=== PATIENT | male | born 1930 | race Caucasian/White ===

== ENCOUNTER 2016-11-22 19:33 | Inpatient (IN) ==
--- OUTSIDE RECORDS SUMMARY | 2016-11-22 20:59 | External Medical Summary ---
:1930 Author Organization eClinicalWorks Care Team Providers Name Role Phone Spenser Gomez Provider Role Unavailable Allergies No Known Allergies Problems Problem Type Condition Code Onset Dates Condition Status Problem CHF, Combined Systolic & 428.41 Active Diastolic Heart F, Acute Problem Acute myocardial infarction, 410.92 Active unspecified site, subsequent episode of care Problem Hypertension 401.9 Active Assessment Presence of coronary angioplasty Z95.5 Active implant and graft Problem NSTEMI (non-ST elevated myocardial I21.4 Active infarction) Problem Chronic obstructive pulmonary J44.9 Active disease, unspecified Problem Other retirement (current) drug Z79.899 Active therapy Problem Essential (primary) hypertension I10 Active 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
--- OUTSIDE RECORDS SUMMARY | 2016-11-22 20:59 | External Medical Summary | Summary of Care ---
:1930 Author Name Kay Maria M.D. Address [address], [place] [id number] Care Team Providers Name Role Phone Kay Maria M.D. 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 Refills: 0 Maynor Maria M.D. Started ActiveSpiriva HandiHaler 18 MCG Inhalation Capsule INHALE CONTENTS OF 1 CAPSULE ONCE DAILY. Refills: 0 Started ActiveTerazosin HCl - 10 MG Oral Capsule TAKE 1 CAPSULE DAILY. Refills: 0 Started ActiveBenicar 40 MG Oral Tablet TAKE 1 TABLET DAILY. Refills: 0 Started ActiveHydrochlorothiazide 25 MG Oral Tablet Take 1 tablet daily Quantity: 90 Refills: 3 Started ActiveAllopurinol 300 MG Oral Tablet TAKE 1 TABLET DAILY DIRECTED. Quantity: 30 Refills: 6 Started ActiveVisiVites Oral Tablet TAKE 1 TABLET DAILY. Refills: 0 Started ActiveGlucosamine Chondr 1500 Complx Oral Capsule TAKE 1 CAPSULE DAILY. Refills: 0 Started ActiveFish Oil 1000 MG Oral Capsule TAKE 1 CAPSULE DAILY. Quantity: 30 Refills: 0 Started ActivePriLOSEC 10 MG Oral Packet Refills: 0 Started ActiveVitamin E 100 UNIT Oral Capsule Refills: 0 Started ActiveMagnesium 200 MG Oral Tablet one po qd Quantity: 30 Refills: 0 Started ActiveTylenol Extra Strength 500 MG Oral Tablet TAKE 1 TABLET EVERY 4 TO 6 HOURS NEEDED. Refills: 0 Started Active Allergies and Adverse Reactions Name Dates Details Penicillins Status: Active Procedures Procedure Dates Details History of Appendectomy History of Back Surgery History of Shoulder Surgery History of Prostate Surgery History of Ear Surgery Procedures not documented Immunization Name Dates Details Immunizations not documented Family History Father Name Dates Details Family history of myocardial infarction (V17.3, Z82.49) Status: Active Social History Name Dates Details Smoking StatusNever smoker Vital Signs Date Test Result Details No Known Vitals to report Results Date Description Value Details Results not documented Plan of Care Planned Observations Name Dates Details Planned Goals not documented Goal Planned Encounters Appointment; Provider: Maynor Maria On 09-Jun-2014 11:15 Appointment; Provider: Maynor Maria On 05-Jun-2014 15:30 Instructions Instructions not documented Encounters Appointment; Maynor Maria On 27-May-2014 Encounter Diagnosis: Problem not documented 13:30 Appointment; Maynor Maria On 21-May-2014 Encounter Diagnosis: Problem not documented 10:30 Appointment; Maynor Maria On 25-Dec-2013 Encounter Diagnosis: Problem not documented 10:45 Appointment; Maynor Maria On 23-Oct-2013 Encounter Diagnosis: Problem not documented 13:00 Appointment; Maynor Maria On Encounter Diagnosis: Problem not documented 13:15 Appointment; Maynor Maria On 10-Jul-2013 Encounter Diagnosis: Problem not documented 15:30
[2016-11-22] MEDS ORDERED: ACETAMINOPHEN 325 MG TABLET PO PRN (21:00)
[2016-11-22] MEDS ORDERED: ONDANSETRON 4 MG/2 ML INJECTION IVP PRN (21:00)
--- OUTSIDE RECORDS SUMMARY | 2016-11-22 21:00 | External Medical Summary | CCD ---
:1930 Author Name ARLENE FOWLER Address [address] [place] [address] Unavailable [place], [place] [id number] Care Team Providers Name Role Phone AMY JACKSON Attending Physician Unavailable LILIA CABALLERO (Secondary) Physician Unavailable Vital Signs Unknown or Not Available. Allergies Allergy Code Allergy Type Reaction Status PCN (penicillin) 0 Drug allergy Active Procedures Unknown or Not Available. History of Immunizations Immunization Code Date influenza, split (incl. purified 15 12/12/2001 surface antigen) influenza, split (incl. purified 15 12/11/2002 surface antigen) influenza, split (incl. purified 15 12/22/2004 surface antigen) influenza, split (incl. purified 15 12/27/2006 surface antigen) influenza, split (incl. purified 15 12/19/2007 surface antigen) influenza, split (incl. purified 15 01/14/2009 surface antigen) influenza, split (incl. purified 15 11/25/2009 surface antigen) influenza, split (incl. purified 15 01/19/2011 surface antigen) influenza, split (incl. purified 15 11/23/2011 surface antigen) pneumococcal polysaccharide PPV23 33 12/11/2002 pneumococcal polysaccharide PPV23 33 12/13/2009 Influenza, high dose seasonal 135 12/26/2012 Influenza, seasonal, injectable 141 12/13/2013 Problems Unknown or Not Available. Results FERRITIN - Collect Date/Time: 09/10/2015 14:00 Test Name Code Test Result Test Units Test Ref Range FERRITIN 164 ng/mL L=8 H=388 IRON AND TIBC - Collect Date/Time: 09/10/2015 14:00 Test Name Code Test Result Test Units Test Ref Range IRON 66 ug/dL L=50 H=175 TIBC 202 ug/dL L=250 H=450 IRON SAT 33 % L=20 H=50 RETICULOCYTE COUNT - Collect Date/Time: 09/10/2015 14:00 Test Name Code Test Result Test Units Test Ref Range Reticulocyte Count 40819-0 2.1 % 0.2-2.0 Active Medications Medication Code Dose Units Frequency Route Modification Start Date/Time Acetaminophen 036961 1270 MILLIGRAMS NEEDED ORAL 07/18/2014 500MG Oral 14:01 Tablet Prescription Detail 1000 MILLIGRAMS ORAL NEEDED Advair Diskus 250/50 587893 1 EACH TWICE A INHALATION 07/18/2014 0.25MG-0.05MG/1INH DAY 14:01 Inhalation Disk Prescription Detail 1 EACH INHALATION TWICE A DAY Allopurinol 769171 150 MILLIGRAMS DAILY ORAL 07/18/2014 300MG Oral 14:01 Tablet Prescription Detail 150 MILLIGRAMS ORAL DAILY Amiodarone 226582 200 MILLIGRAMS DAILY ORAL 07/18/2014 200MG Oral 14:01 Tablet Prescription Detail 200 MILLIGRAMS ORAL DAILY Aspirin 81MG 996323 81 MILLIGRAMS DAILY ORAL 07/18/2014 Oral Tablet, 14:01 Enteric Coated Prescription Detail 81 MILLIGRAMS ORAL DAILY Clopidogrel 75MG 327486 75 MILLIGRAMS DAILY ORAL 07/18/2014 Oral Tablet 14:01 Prescription Detail 75 MILLIGRAMS ORAL DAILY Glucosamine 0979202 500 MILLIGRAMS DAILY ORAL 07/18/2014 500MG Oral 14:01 Capsule Prescription Detail 500 MILLIGRAMS ORAL DAILY Metoprolol 265081 25 MILLIGRAMS TWICE A ORAL 07/18/2014 Succinate 25MG DAY 14:01 Oral Tablet, Extended Release Prescription Detail 25 MILLIGRAMS ORAL TWICE A DAY Ocuvite PreserVision [id number] 1 EACH DAILY ORAL 07/18/2014 [id number] 14:01 Oral Tablet Prescription Detail 1 EACH ORAL DAILY Polysporin 986481 1 EACH NEEDED TOPICAL 07/18/2014 500U/GM-88514G/GM APPLICATION 14:01 Topical application Ointment Prescription Detail 1 EACH TOPICAL APPLICATION NEEDED Spiriva 18MCG 271003 18 MCG DAILY INHALATION 07/18/2014 Inhalation 14:01 Capsule Prescription Detail 18 MCG INHALATION DAILY Medications Administered During Visit Unknown or Not Available. Encounters Encounter Diagnosis Diagnosis Code Start Date Anemia, unspecified D649 09/10/2015 Social History Smoking Status Code Start Date End Date Former smoker 1331348 Patient Decision Aids Unknown or Not Available. Discharge Instructions You were admitted to [facility] on 09/10/2015 13:47 with a principal diagnosis of Anemia, unspecified You had the following tests done: FERRITIN IRON AND TIBC RETICULOCYTE COUNT You were discharged from [facility] on 09/10/2015 13:47 Should you have any questions prior to discharge, please contact a member of your healthcare team. If you have left the hospital and have any questions, please contact your primary care physician. Chief Complaint and Reason For Visit Chief Complaint Date of Onset LAB Function Status Unknown or Not Available. Plan of Care Unknown or Not Available. Referral/Transition of Care Unknown or Not Available.
--- OUTSIDE RECORDS SUMMARY | 2016-11-22 21:00 | External Medical Summary | Summary of Care ---
:1930 Author Name Kay Maria M.D. Address [address], [place] [id number] Care Team Providers Name Role Phone Kay [...] Dates Details Planned Goals not documented Goal Instructions Instructions not documented Encounters Appointment; Maynor [...]
--- OUTSIDE RECORDS SUMMARY | 2016-11-22 21:00 | External Medical Summary ---
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 Problem Acute myocardial infarction, 410.92 Active unspecified site, subsequent episode of care Assessment Essential (primary) hypertension I10 Active Problem CHF, Combined Systolic & 428.41 Active Diastolic Heart F, Acute Problem Atherosclerotic heart disease of I25.10 Active [place] coronary artery without angina pectoris Problem NSTEMI (non-ST elevated myocardial I21.4 Active infarction) Problem Other rope walker (current) drug Z79.899 Active therapy Problem Old myocardial infarction I25.2 Active Problem Essential (primary) hypertension I10 Active Problem Chronic obstructive pulmonary J44.9 Active disease, unspecified Problem Presence of coronary angioplasty Z95.5 Active implant and graft Medications Medication Code System Code Instructions Start End Date Status Dosage Date Amlodipine [facility] 375[address]-303 5 MG Orally Once 1 tablet Besylate 1-22 a day Results No Known Results Summary Purpose eClinicalWorks Submission
--- OUTSIDE RECORDS SUMMARY | 2016-11-22 21:00 | External Medical Summary | CCD ---
:1930 Author Name ARLENE FOWLER Address [address] [place] [address] Unavailable [place], [place] [id number] Care Team Providers Name Role Phone NATHANIEL GREEN Attending Physician Unavailable AMY JACKSON (Secondary) Physician Unavailable Vital Signs Unknown or [...] 12/13/2013 Problems Unknown or Not Available. Results COMP METABOLIC - Collect Date/Time: 12/11/2015 11:15 Test Name Code Test Result Test Units Test Ref Range GLUCOSE 107 mg/dL L=70 H=110 BUN 21 mg/dL L=7 H=18 CREATININE 1.35 mg/dL L=0.60 H=1.30 AGE 85 YEARS GFR 50.1 SODIUM 141 mmol/L L=136 H=145 POTASSIUM 4.2 mmol/L L=3.5 H=5.1 CHLORIDE 105 mmol/L L=98 H=107 CO2 25 mmol/L L=21 H=32 CALCIUM 9.6 mg/dL L=8.5 H=10.1 AST 11 U/L L=15 H=37 ALT 22 U/L L=12 H=78 ALKALINE PHOS 84 U/L L=46 H=116 TOTAL PROTEIN 6.1 g/dL L=6.4 H=8.2 ALBUMIN 3.4 g/dL L=3.4 H=5.0 TOTAL BILI 0.90 mg/dL L=0.00 H=1.00 DIRECT BILIRUBIN - Collect Date/Time: 12/11/2015 11:15 Test Name Code Test Result Test Units Test Ref Range DIRECT BILI 0.20 mg/dL L=0.00 H=0.30 LIPID PANEL - Collect Date/Time: 12/11/2015 11:15 Test Name Code Test Result Test Units Test Ref Range CHOLESTEROL 197 mg/dL L=0 H=200 TRIGLYCERIDES 48 mg/dL L=30 H=150 HDL 93 mg/dL L=40 H=60 LDL, CALC 94 mg/dL L=0 H=100 VLDL 10 mg/dL L=0 H=40 CHOL/HDL RISK 2.1 RATIO L=0.0 H=5.0 PT FASTING: ? N/A THYROXINE (T4) FREE - Collect Date/Time: 12/11/2015 11:15 Test Name Code Test Result Test Units Test Ref Range FT4 1.30 ng/dL L=0.76 H=1.46 TSH - Collect Date/Time: 12/11/2015 11:15 Test Name Code Test Result Test Units Test Ref Range TSH 4.00 uIU/mL L=0.36 H=3.74 CBC W/ DIFF - Collect Date/Time: 12/11/2015 11:15 Test Name Code Test Result Test Units Test Ref Range WBC 8.1 x10^3 L=4.8 H=10.8 RBC 3.29 x10^6 L=4.70 H=6.10 HEMOGLOBIN 11.7 g/dL L=14.0 H=18.0 HEMATOCRIT 33.6 % L=42.0 H=52.0 MCV 102 fL L=80 H=100 MCH 35.4 pg L=27.0 H=33.0 MCHC 34.6 g/dL L=33.0 H=37.0 RDW 15.0 % L=11.5 H=14.5 PLATELETS 202 x10^3 L=150 H=450 MPV 8.4 fL L=7.8 H=11.0 NEUTROPHILS 74.6 % L=40.0 H=80.0 LYMPHOCYTES 16.7 % L=20.0 H=45.0 MONOCYTES 6.9 % L=0.0 H=10.0 EOSINOPHILS 1.7 % L=0.0 H=5.0 BASOPHILS 0.1 % L=0.0 H=2.0 REFLEX MAN DIFF NO N/A TRIIODOTHYROXINE (T3) TOTAL - Collect Date/Time: 12/11/2015 11:15 Test Name Code Test Result Test Units Test Ref Range Triiodothyronine (T3) 3053-6 0.45 mmol/L 0.87-1.78 Active Medications Medication Code Dose Units Frequency Route Modification Start Date/Time Acetaminophen 994044 4748 MILLIGRAMS NEEDED ORAL 07/18/2014 500MG Oral 14:01 Tablet Prescription Detail 1000 MILLIGRAMS ORAL NEEDED Advair Diskus 250/50 800096 1 EACH TWICE A INHALATION 07/18/2014 0.25MG-0.05MG/1INH DAY 14:01 Inhalation Disk Prescription Detail 1 EACH INHALATION TWICE A DAY Allopurinol 627174 150 MILLIGRAMS DAILY ORAL 07/18/2014 300MG Oral 14:01 Tablet Prescription Detail 150 MILLIGRAMS ORAL DAILY Amiodarone 383426 200 MILLIGRAMS DAILY ORAL 07/18/2014 200MG Oral 14:01 Tablet Prescription Detail 200 MILLIGRAMS ORAL DAILY Aspirin 81MG 439457 81 MILLIGRAMS DAILY ORAL 07/18/2014 Oral Tablet, 14:01 Enteric Coated Prescription Detail 81 MILLIGRAMS ORAL DAILY Clopidogrel 75MG 298212 75 MILLIGRAMS DAILY ORAL 07/18/2014 Oral Tablet 14:01 Prescription Detail 75 MILLIGRAMS ORAL DAILY Glucosamine 5041069 500 MILLIGRAMS DAILY ORAL 07/18/2014 500MG Oral 14:01 Capsule Prescription Detail 500 MILLIGRAMS ORAL DAILY Metoprolol 658684 25 MILLIGRAMS TWICE A ORAL 07/18/2014 Succinate 25MG DAY 14:01 Oral Tablet, Extended Release Prescription Detail 25 MILLIGRAMS ORAL TWICE A DAY Ocuvite PreserVision [id number] 1 EACH DAILY ORAL 07/18/2014 113MG-[id number] 14:01 Oral Tablet Prescription Detail 1 EACH ORAL DAILY Polysporin 326360 1 EACH NEEDED TOPICAL 07/18/2014 500U/GM-89987O/GM APPLICATION 14:01 Topical application Ointment Prescription Detail 1 EACH TOPICAL APPLICATION NEEDED Spiriva 18MCG 915616 18 MCG DAILY INHALATION 07/18/2014 Inhalation 14:01 Capsule Prescription Detail 18 MCG INHALATION DAILY Medications Administered During Visit Unknown or Not Available. Encounters Encounter Diagnosis Diagnosis Code Start Date Anemia, unspecified D649 12/11/2015 Social History Smoking Status Code Start Date End Date Former smoker [id number] Patient Decision Aids Unknown or Not Available. Discharge Instructions You were admitted to [facility] on 12/11/2015 11:05 with a principal diagnosis of Anemia, unspecified You had the following tests done: CBC W/ DIFF COMP METABOLIC DIRECT BILIRUBIN LIPID PANEL THYROXINE (T4) FREE TRIIODOTHYROXINE (T3) TOTAL TSH You were discharged from [facility] on 12/11/2015 11:05 Should you have any questions prior to [...]
--- OUTSIDE RECORDS SUMMARY | 2016-11-22 21:00 | External Medical Summary | CCD ---
:1930 Author Name ARLENE FOWLER Address [address] [place] [address] Unavailable [place], [place] [phone] Care Team Providers Name Role Phone AMY JACKSON Attending Physician Unavailable Vital Signs Unknown or Not [...] 12/13/2013 Problems Unknown or Not Available. Results BASIC METABOLIC - Collect Date/Time: 05/29/2015 11:30 Test Name Code Test Result Test Units Test Ref Range GLUCOSE 106 mg/dL L=70 H=110 BUN 31 mg/dL L=7 H=18 CREATININE 1.72 mg/dL L=0.60 H=1.30 AGE 85 YEARS GFR 37.9 SODIUM 143 mmol/L L=136 H=145 POTASSIUM 4.1 mmol/L L=3.5 H=5.1 CHLORIDE 105 mmol/L L=98 H=107 CO2 31 mmol/L L=21 H=32 CALCIUM 9.6 mg/dL L=8.5 H=10.1 THYROXINE (T4) FREE - Collect Date/Time: 05/29/2015 11:30 Test Name Code Test Result Test Units Test Ref Range FT4 1.04 ng/dL L=0.76 H=1.46 TSH - Collect Date/Time: 05/29/2015 11:30 Test Name Code Test Result Test Units Test Ref Range TSH 4.17 uIU/mL L=0.36 H=3.74 CBC W/ DIFF - Collect Date/Time: 05/29/2015 11:30 Test Name Code Test Result Test Units Test Ref Range WBC 8.7 x10^3 L=4.8 H=10.8 RBC 3.74 x10^6 L=4.70 H=6.10 HEMOGLOBIN 12.6 g/dL L=14.0 H=18.0 HEMATOCRIT 37.8 % L=42.0 H=52.0 MCV 101 fL L=80 H=100 MCH 33.8 pg L=27.0 H=33.0 MCHC 33.4 g/dL L=33.0 H=37.0 RDW 14.4 % L=11.5 H=14.5 PLATELETS 172 x10^3 L=150 H=450 MPV 9.3 fL L=7.8 H=11.0 NEUTROPHILS 73.0 % L=40.0 H=80.0 LYMPHOCYTES 18.0 % L=20.0 H=45.0 MONOCYTES 6.1 % L=0.0 H=10.0 EOSINOPHILS 2.8 % L=0.0 H=5.0 BASOPHILS 0.1 % L=0.0 H=2.0 REFLEX MAN DIFF NO N/A Active Medications Medication Code Dose Units Frequency Route Modification Start Date/Time Acetaminophen 406686 5872 MILLIGRAMS NEEDED ORAL 07/18/2014 500MG Oral 14:01 Tablet Prescription Detail 1000 MILLIGRAMS ORAL NEEDED Advair Diskus 250/50 766162 1 EACH TWICE A INHALATION 07/18/2014 0.25MG-0.05MG/1INH DAY 14:01 Inhalation Disk Prescription Detail 1 EACH INHALATION TWICE A DAY Allopurinol 771311 150 MILLIGRAMS DAILY ORAL 07/18/2014 300MG Oral 14:01 Tablet Prescription Detail 150 MILLIGRAMS ORAL DAILY Amiodarone 761603 200 MILLIGRAMS DAILY ORAL 07/18/2014 200MG Oral 14:01 Tablet Prescription Detail 200 MILLIGRAMS ORAL DAILY Aspirin 81MG 793739 81 MILLIGRAMS DAILY ORAL 07/18/2014 Oral Tablet, 14:01 Enteric Coated Prescription Detail 81 MILLIGRAMS ORAL DAILY Clopidogrel 75MG 657121 75 MILLIGRAMS DAILY ORAL 07/18/2014 Oral Tablet 14:01 Prescription Detail 75 MILLIGRAMS ORAL DAILY Glucosamine 1129655 500 MILLIGRAMS DAILY ORAL 07/18/2014 500MG Oral 14:01 Capsule Prescription Detail 500 MILLIGRAMS ORAL DAILY Metoprolol 832412 25 MILLIGRAMS TWICE A ORAL 07/18/2014 Succinate 25MG DAY 14:01 Oral Tablet, Extended Release Prescription Detail 25 MILLIGRAMS ORAL TWICE A DAY Ocuvite PreserVision [id number] 1 EACH DAILY ORAL 07/18/2014 113MG-[id number] 14:01 Oral Tablet Prescription Detail 1 EACH ORAL DAILY Polysporin 430043 1 EACH NEEDED TOPICAL 07/18/2014 500U/GM-62229E/GM APPLICATION 14:01 Topical application Ointment Prescription Detail 1 EACH TOPICAL APPLICATION NEEDED Spiriva 18MCG 149224 18 MCG DAILY INHALATION 07/18/2014 Inhalation 14:01 Capsule Prescription Detail 18 MCG INHALATION DAILY Medications Administered During Visit Unknown or Not Available. Encounters Encounter Diagnosis Diagnosis Code Start Date Other fatigue R5383 05/29/2015 Social History Smoking Status Code Start Date End Date Former smoker [id number] Patient Decision Aids Unknown or Not Available. Discharge Instructions You were admitted to [facility] on 05/29/2015 11:14 with a principal diagnosis of Other fatigue You had the following tests done: BASIC METABOLIC CBC W/ DIFF THYROXINE (T4) FREE TSH You were discharged from [facility] on 05/29/2015 11:14 Should you have any questions prior to [...]
--- OUTSIDE RECORDS SUMMARY | 2016-11-22 21:00 | External Medical Summary | CCD ---
:1930 Author Name ARLENE FOWLER Address [address] [place] [address] Unavailable [place], [place] [id number] Care Team Providers Name Role Phone NATHANIEL [...] 12/13/2013 Problems Unknown or Not Available. Results TSH - Collect Date/Time: 04/21/2015 13:46 Test Name Code Test Result Test Units Test Ref Range TSH 3.22 uIU/mL L=0.36 H=3.74 Active Medications Medication Code Dose Units Frequency Route Modification Start Date/Time Acetaminophen 476553 8416 MILLIGRAMS NEEDED ORAL 07/18/2014 500MG Oral 14:01 Tablet Prescription Detail 1000 MILLIGRAMS ORAL NEEDED Advair Diskus 250/50 689928 1 EACH TWICE A INHALATION 07/18/2014 0.25MG-0.05MG/1INH DAY 14:01 Inhalation Disk Prescription Detail 1 EACH INHALATION TWICE A DAY Allopurinol 422857 150 MILLIGRAMS DAILY ORAL 07/18/2014 300MG Oral 14:01 Tablet Prescription Detail 150 MILLIGRAMS ORAL DAILY Amiodarone 773543 200 MILLIGRAMS DAILY ORAL 07/18/2014 200MG Oral 14:01 Tablet Prescription Detail 200 MILLIGRAMS ORAL DAILY Aspirin 81MG 539680 81 MILLIGRAMS DAILY ORAL 07/18/2014 Oral Tablet, 14:01 Enteric Coated Prescription Detail 81 MILLIGRAMS ORAL DAILY Clopidogrel 75MG 601362 75 MILLIGRAMS DAILY ORAL 07/18/2014 Oral Tablet 14:01 Prescription Detail 75 MILLIGRAMS ORAL DAILY Glucosamine 2128016 500 MILLIGRAMS DAILY ORAL 07/18/2014 500MG Oral 14:01 Capsule Prescription Detail 500 MILLIGRAMS ORAL DAILY Metoprolol 705696 25 MILLIGRAMS TWICE A ORAL 07/18/2014 Succinate 25MG DAY 14:01 Oral Tablet, Extended Release Prescription Detail 25 MILLIGRAMS ORAL TWICE A DAY Ocuvite PreserVision [id number] 1 EACH DAILY ORAL 07/18/2014 113MG-[id number] 14:01 Oral Tablet Prescription Detail 1 EACH ORAL DAILY Polysporin 602352 1 EACH NEEDED TOPICAL 07/18/2014 500U/[id number]/GM APPLICATION 14:01 Topical application Ointment Prescription Detail 1 EACH TOPICAL APPLICATION NEEDED Spiriva 18MCG 925766 18 MCG DAILY INHALATION 07/18/2014 Inhalation 14:01 Capsule Prescription Detail 18 MCG INHALATION DAILY Medications Administered During Visit Unknown or Not Available. 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 Discharge Instructions You were admitted to [facility] on 04/21/2015 13:36 with a principal diagnosis of Chronic combined systolic and diastolic hrt fail You had the following tests done: TSH You were discharged from [facility] on 04/21/2015 13:36 Should you have any questions prior to [...]
--- OUTSIDE RECORDS SUMMARY | 2016-11-22 21:00 | External Medical Summary | Summary of Care ---
:1930 Author Name Kay Maria M.D. Address [address], [place] [address] Care Team Providers Name Role Phone Kay Maria M.D. 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 Refills: 0 Started ActiveDoxycycline Hyclate 100 MG Oral Tablet 1 po bid for 10 days Quantity: 20 Refills: 0 Maynor Maria M.D. Started 09-Jun-2014 Active Allergies and Adverse Reactions Name Dates [...] Planned Encounters Appointment; Provider: Maynor Maria On 05-Jun-2014 15:30 Instructions Instructions not documented Encounters Appointment; Maynor Maria On Encounter Diagnosis: Problem not documented 13:45 Appointment; Maynor Maria On 23-Jun-2014 Encounter Diagnosis: Problem not documented 11:00 Appointment; Maynor Maria On 09-Jun-2014 Encounter Diagnosis: Problem not documented 11:15 Appointment; Maynor Maria On 27-May-2014 Encounter Diagnosis: [...]
--- OUTSIDE RECORDS SUMMARY | 2016-11-22 21:00 | External Medical Summary | CCD ---
:1930 Author Name ARLENE FOWLER Address [address] [place] [address] Unavailable [place], [place] [phone] Care Team Providers Name Role Phone AMY [...] 12/13/2013 Problems Unknown or Not Available. Results Unknown or Not Available. Active Medications Medication Code Dose Units Frequency Route Modification Start Date/Time Acetaminophen 502413 9737 MILLIGRAMS NEEDED ORAL 07/18/2014 500MG Oral 14:01 Tablet Prescription Detail 1000 MILLIGRAMS ORAL NEEDED Advair Diskus 250/50 082332 1 EACH TWICE A INHALATION 07/18/2014 0.25MG-0.05MG/1INH DAY 14:01 Inhalation Disk Prescription Detail 1 EACH INHALATION TWICE A DAY Allopurinol 372842 150 MILLIGRAMS DAILY ORAL 07/18/2014 300MG Oral 14:01 Tablet Prescription Detail 150 MILLIGRAMS ORAL DAILY Amiodarone 730186 200 MILLIGRAMS DAILY ORAL 07/18/2014 200MG Oral 14:01 Tablet Prescription Detail 200 MILLIGRAMS ORAL DAILY Aspirin 81MG 011556 81 MILLIGRAMS DAILY ORAL 07/18/2014 Oral Tablet, 14:01 Enteric Coated Prescription Detail 81 MILLIGRAMS ORAL DAILY Clopidogrel 75MG 841626 75 MILLIGRAMS DAILY ORAL 07/18/2014 Oral Tablet 14:01 Prescription Detail 75 MILLIGRAMS ORAL DAILY Glucosamine 6980761 500 MILLIGRAMS DAILY ORAL 07/18/2014 500MG Oral 14:01 Capsule Prescription Detail 500 MILLIGRAMS ORAL DAILY Metoprolol 161093 25 MILLIGRAMS TWICE A ORAL 07/18/2014 Succinate 25MG DAY 14:01 Oral Tablet, Extended Release Prescription Detail 25 MILLIGRAMS ORAL TWICE A DAY Ocuvite PreserVision [id number] 1 EACH DAILY ORAL 07/18/2014 113MG-0.8LL-[id number]-9 14:01 Oral Tablet Prescription Detail 1 EACH ORAL DAILY Polysporin 112638 1 EACH NEEDED TOPICAL 07/18/2014 500U/GM-70235B/GM APPLICATION 14:01 Topical application Ointment Prescription Detail 1 EACH TOPICAL APPLICATION NEEDED Spiriva 18MCG 699980 18 MCG DAILY INHALATION 07/18/2014 Inhalation 14:01 Capsule Prescription Detail 18 MCG INHALATION DAILY Medications Administered During Visit Unknown or Not Available. Encounters Encounter Diagnosis Diagnosis Code Start Date Abnormal findings on diagnostic R932 09/09/2015 imaging of liver and biliary tract Social History Smoking Status Code Start Date End Date Former smoker 8877822 Patient Decision Aids Unknown or Not Available. Discharge Instructions You were admitted to [facility] on 09/09/2015 09:45 with a principal diagnosis of Abnormal findings on dx imaging of liver and biliary tr You were discharged from [facility] on 09/09/2015 09:45 Should you have any questions prior to discharge, please contact a member of your healthcare team. If you have left the hospital and have any questions, please contact your primary care physician. Chief Complaint and Reason For Visit Chief Complaint Date of Onset CT ABD WWO CONTR Function Status Unknown or Not Available. Plan of Care Unknown or Not Available. Referral/Transition of Care Unknown or Not Available.
--- OUTSIDE RECORDS SUMMARY | 2016-11-22 21:00 | External Medical Summary | CCD ---
:1930 Author Name LETTY CERDA Address [address] [place] [phone] Care Team Providers Name Role Phone TRINH JACKSON Attending Physician CRISTIAN Quezada Registered Nurse Unavailable Vital Signs Unknown or Not Available. [...] Dose Units Frequency [facility]ification [facility] 20 MILLIEQUIVALENT DAILY BY 07/19/2014 20MEQ Oral MOUTH 09:17 Tablet, Extended Release Prescription Detail TAKE 20 MILLIEQUIVALENT BY MOUTH DAILY FOR ONE WEEK. ADDITIONAL TABLET TODAY Acetaminophen 659697 4987 MILLIGRAMS NEEDED ORAL 07/18/2014 500MG Oral Tablet 14:01 Prescription Detail 1000 MILLIGRAMS ORAL NEEDED Advair Diskus 250/50 464119 1 EACH TWICE A INHALATION 07/18/2014 0.25MG-0.05MG/1INH DAY 14:01 Inhalation Disk Prescription Detail 1 EACH INHALATION TWICE A DAY Allopurinol 150 MILLIGRAMS DAILY ORAL 07/18/2014 300MG Oral 14:01 Tablet Prescription Detail 150 MILLIGRAMS ORAL DAILY Amiodarone 952884 200 MILLIGRAMS DAILY ORAL 07/18/2014 200MG Oral 14:01 Tablet Prescription Detail 200 MILLIGRAMS ORAL DAILY Aspirin 81MG 204372 81 MILLIGRAMS DAILY ORAL 07/18/2014 Oral Tablet, 14:01 Enteric Coated Prescription Detail 81 MILLIGRAMS ORAL DAILY Benicar 5MG Oral 070055 07/18/2014 Tablet 14:01 Bumetanide 1MG 432983 07/18/2014 Oral Tablet 14:01 Clopidogrel 75MG 448076 75 MILLIGRAMS DAILY ORAL 07/18/2014 Oral Tablet 14:01 Prescription Detail 75 MILLIGRAMS ORAL DAILY Fish Oil 562907 6350 MILLIGRAMS ORAL 07/18/2014 1000MG Oral 14:01 Capsule, Liquid Filled Prescription Detail 1000 MILLIGRAMS ORAL Glucosamine 0626709 500 MILLIGRAMS DAILY ORAL 07/18/2014 500MG Oral 14:01 Capsule Prescription Detail 500 MILLIGRAMS ORAL DAILY Hydrochlorothiazide 438965 25 MILLIGRAMS DAILY ORAL 07/18/2014 25MG Oral Tablet 14:01 Prescription Detail 25 MILLIGRAMS ORAL DAILY Magnesium 0 500 MILLIGRAMS DAILY ORAL 07/18/2014 14:01 Prescription Detail 500 MILLIGRAMS ORAL DAILY Metoprolol 370563 25 MILLIGRAMS TWICE A ORAL 07/18/2014 Succinate 25MG DAY 14:01 Oral Tablet, Extended Release Prescription Detail 25 MILLIGRAMS ORAL TWICE A DAY Nexium 20MG 610964 20 MILLIGRAMS DAILY ORAL 07/18/2014 Oral Capsule, 14:01 Delayed Release Prescription Detail 20 MILLIGRAMS ORAL DAILY Ocuvite PreserVision 02339348172 1 EACH DAILY ORAL 07/18/2014 113MG-0.2AC-[id number]-4 14:01 Oral Tablet Prescription Detail 1 EACH ORAL DAILY Polysporin 475321 1 EACH NEEDED TOPICAL 07/18/2014 500U/GM-65363M/GM APPLICATION 14:01 Topical application Ointment Prescription Detail 1 EACH TOPICAL APPLICATION NEEDED Spiriva 18MCG 295262 18 MCG DAILY INHALATION 07/18/2014 Inhalation 14:01 Capsule Prescription Detail 18 MCG INHALATION DAILY Terazosin HCl 741092 07/18/2014 5MG Oral 14:01 Capsule Vitamin D 81143885375 2000 INTERNATIONAL DAILY ORAL 07/18/2014 2000IU Oral UNITS 14:01 Tablet Prescription Detail 2000 INTERNATIONAL UNITS ORAL DAILY Medications Administered During Visit Unknown or Not Available. Encounters Unknown or Not Available. Social History Smoking Status Code Start Date End Date Former smoker 1816712 Patient Decision Aids Unknown or Not Available. Discharge Instructions You were admitted to [facility] on 10/06/2014. Should you have any questions prior to discharge, please contact a member of your healthcare team. If you have left the hospital and have any questions, please contact your primary care physician. Chief Complaint and Reason For Visit Chief Complaint Date of Onset CARDIAC REHAB Function Status Unknown or Not Available. Referral/Transition of Care Unknown or Not Available.
--- OUTSIDE RECORDS SUMMARY | 2016-11-22 21:00 | External Medical Summary | CCD ---
:1930 Author Name LETTY CERDA Address [address] [place] [address] Unavailable [place], [place] [phone] Care Team Providers Name Role Phone TRINH JACKSON Attending Physician Unavailable TRINH JACKSON Er Physician 1 Unavailable Vital Signs Vital Sign Value Unit Date/Time Recent/Initial? Weight Measured 230 lbs 05/31/2014 09:56 Initial VS Height 69 in 05/31/2014 09:56 Initial VS BMI (Body Mass 33.96 kg/m^2 05/31/2014 09:56 Initial VS Index) BSA (Body Surface 2.25 m^2 05/31/2014 09:56 Initial VS Area) Allergies Allergy Code Allergy Type Reaction Status [...] surface antigen) pneumococcal polysaccharide PPV23 33 12/11/2002 Influenza, high dose seasonal 135 12/26/2012 Problems Unknown or Not Available. Results CARDIAC PANEL - Collect Date/Time: 05/31/2014 09:37 Test Name Code Test Result Test Units Test Ref Range CKMB 1.5 ng/mL L=0.0 H=3.6 CPK 76 U/L L=26 H=308 CKMB% 2.0 % L=0.0 H=4.0 TROPONIN I <0.02 ng/mL L=0.00 H=0.05 COMP METABOLIC - Collect Date/Time: 05/31/2014 09:37 Test Name Code Test Result Test Units Test Ref Range GLUCOSE 199 mg/dL L=70 H=110 BUN 18 mg/dL L=7 H=18 CREATININE 1.40 mg/dL L=0.60 H=1.30 AGE 84 YEARS GFR 51.2 SODIUM 139 mmol/L L=136 H=145 POTASSIUM 3.4 mmol/L L=3.5 H=5.1 CHLORIDE 102 mmol/L L=98 H=107 CO2 26 mmol/L L=21 H=32 CALCIUM 9.7 mg/dL L=8.5 H=10.1 AST 11 U/L L=15 H=37 ALT 25 U/L L=12 H=78 ALKALINE PHOS 69 U/L L=46 H=116 TOTAL PROTEIN 6.5 g/dL L=6.4 H=8.2 ALBUMIN 3.3 g/dL L=3.4 H=5.0 TOTAL BILI 0.90 mg/dL L=0.00 H=1.00 PRO B-TYPE NATRIURETIC PEPTIDE - Collect Date/Time: 05/31/2014 09:37 Test Name Code Test Result Test Units Test Ref Range PBNP 62 pg/mL L=0 H=450 CBC W/ DIFF - Collect Date/Time: 05/31/2014 09:37 Test Name Code Test Result Test Units Test Ref Range WBC 8.7 x10^3 L=4.8 H=10.8 RBC 3.49 x10^6 L=4.70 H=6.10 HEMOGLOBIN 12.6 g/dL L=14.0 H=18.0 HEMATOCRIT 36.4 % L=42.0 H=52.0 MCV 105 fL L=80 H=100 MCH 36.2 pg L=27.0 H=33.0 MCHC 34.7 g/dL L=33.0 H=37.0 RDW 14.2 % L=11.5 H=14.5 PLATELETS 142 x10^3 L=150 H=450 MPV 9.5 fL L=7.8 H=11.0 NEUTROPHILS 68.3 % L=40.0 H=80.0 LYMPHOCYTES 22.7 % L=20.0 H=45.0 MONOCYTES 7.1 % L=0.0 H=10.0 EOSINOPHILS 1.6 % L=0.0 H=5.0 BASOPHILS 0.3 % L=0.0 H=2.0 REFLEX MAN DIFF NO N/A Active Medications Unknown or Not Available. Medications Administered During Visit Unknown or Not Available. Encounters Unknown or Not Available. Social History Smoking Status Code Start Date End Date Former smoker [id number] Patient Decision Aids Unknown or Not Available. Discharge Instructions You were admitted to [facility] on 05/31/2014. You were discharged from [facility] on 05/31/2014. Should you have any questions prior to discharge, please contact a member of your healthcare team. If you have left the hospital and have any questions, please contact your primary care physician. Chief Complaint and Reason For Visit Chief Complaint Date of Onset CHEST PAIN Function Status Unknown or Not Available. Plan of Care Unknown or Not Available. Referral/Transition of Care Unknown or Not Available.
--- OUTSIDE RECORDS SUMMARY | 2016-11-22 21:00 | External Medical Summary | CCD ---
:1930 Author Name LETTY CERDA Address [address] [place] [address] Unavailable [place], [place] [phone] Care Team Providers Name Role Phone TRINH JACKSON Attending Physician Unavailable BHUPENDRA ORO Rounding (Secondary) Physician Unavailable Vital Signs Unknown or Not Available. Allergies Allergy Code Allergy Type Reaction Status PCN (penicillin) 0 Drug allergy Active Procedures Procedure Code Procedure Type Date CHEST [id number] 08/12/2014 History of Immunizations Immunization Code Date influenza, [...] Available. Results COMP METABOLIC - Collect Date/Time: 08/12/2014 10:45 Test Name Code Test Result Test Units Test Ref Range GLUCOSE 109 mg/dL L=70 H=110 BUN 24 mg/dL L=7 H=18 CREATININE 1.40 mg/dL L=0.60 H=1.30 AGE 84 YEARS GFR 51.2 SODIUM 140 mmol/L L=136 H=145 POTASSIUM 4.0 mmol/L L=3.5 H=5.1 CHLORIDE 105 mmol/L L=98 H=107 CO2 25 mmol/L L=21 H=32 CALCIUM 9.9 mg/dL L=8.5 H=10.1 AST 14 U/L L=15 H=37 ALT 25 U/L L=12 H=78 ALKALINE PHOS 86 U/L L=46 H=116 TOTAL PROTEIN 7.0 g/dL L=6.4 H=8.2 ALBUMIN 3.8 g/dL L=3.4 H=5.0 TOTAL BILI 0.90 mg/dL L=0.00 H=1.00 CBC (HEMOGRAM ONLY) - Collect Date/Time: 08/12/2014 10:45 Test Name Code Test Result Test Units Test Ref Range WBC 7.5 x10^3 L=4.8 H=10.8 RBC 3.21 x10^6 L=4.70 H=6.10 HEMOGLOBIN 11.5 g/dL L=14.0 H=18.0 HEMATOCRIT 33.5 % L=42.0 H=52.0 MCV 104 fL L=80 H=100 MCH 35.7 pg L=27.0 H=33.0 MCHC 34.2 g/dL L=33.0 H=37.0 RDW 15.0 % L=11.5 H=14.5 PLATELETS 168 x10^3 L=150 H=450 MPV 8.7 fL L=7.8 H=11.0 PT/INR - Collect Date/Time: 08/12/2014 10:45 Test Name Code Test Result Test Units Test Ref Range PT 9.4 Secs L=9.2 H=10.8 INR 0.94 L=0.00 H=4.00 PTT - Collect Date/Time: 08/12/2014 10:45 Test Name Code Test Result Test Units Test Ref Range PTT 23.4 Secs L=22.0 H=30.0 Active Medications Medication Code Dose Units Frequency Route Modification Start Date/Time Klor-Con M20 815178 20 MILLIEQUIVA DAILY BY MOUTH 07/19/2014 20MEQ Oral LENT 09:17 Tablet, Extended Release Acetaminophen 490844 2523 MILLIGRAMS NEEDED ORAL 07/18/2014 500MG Oral 14:01 Tablet Advair Diskus 541399 1 EACH TWICE A INHALATION 07/18/2014 250/50 DAY 14:01 0.25MG-0.05MG/1I NH Inhalation Disk Allopurinol 578681 150 MILLIGRAMS DAILY ORAL 07/18/2014 300MG Oral 14:01 Tablet Amiodarone 200MG 601898 200 MILLIGRAMS DAILY ORAL 07/18/2014 Oral Tablet 14:01 Aspirin 81MG 862961 81 MILLIGRAMS DAILY ORAL 07/18/2014 Oral Tablet, 14:01 Enteric Coated Benicar 5MG Oral 666647 07/18/2014 Tablet 14:01 Bumetanide 1MG 038973 07/18/2014 Oral Tablet 14:01 Clopidogrel 75MG 544809 75 MILLIGRAMS DAILY ORAL 07/18/2014 Oral Tablet 14:01 Fish Oil 1000MG 631262 0960 MILLIGRAMS ORAL 07/18/2014 Oral Capsule, 14:01 Liquid Filled Glucosamine 7783539 500 MILLIGRAMS DAILY ORAL 07/18/2014 500MG Oral 14:01 Capsule Hydrochlorothiaz 375019 25 MILLIGRAMS DAILY ORAL 07/18/2014 godwin 25MG Oral 14:01 Tablet Magnesium 0 500 MILLIGRAMS DAILY ORAL 07/18/2014 14:01 Metoprolol 845354 25 MILLIGRAMS TWICE A ORAL 07/18/2014 Succinate 25MG DAY 14:01 Oral Tablet, Extended Release Nexium 20MG Oral 747974 20 MILLIGRAMS DAILY ORAL 07/18/2014 Capsule, Delayed 14:01 Release Ocuvite 1918802957 1 EACH DAILY ORAL 07/18/2014 PreserVision 2 14:01 113MG-0.4MG-7160 IU-1 Oral Tablet Polysporin 643694 1 EACH NEEDED TOPICAL 07/18/2014 500U/GM-98428F/G APPLICATIO 14:01 M Topical N application Ointment Spiriva 18MCG 747365 18 MCG DAILY INHALATION 07/18/2014 Inhalation 14:01 Capsule Terazosin HCl 056438 07/18/2014 5MG Oral Capsule 14:01 Vitamin D 2000IU 2850090446 2000 INTERNATION DAILY ORAL 07/18/2014 Oral Tablet 0 AL UNITS 14:01 Medications Administered During Visit Unknown or Not Available. Encounters Encounter Diagnosis Diagnosis Code Start Date PRE OP EXAM UNSPECIFIED V7284 08/12/2014 Social History Smoking Status Code Start Date End Date Former smoker [id number] Patient Decision Aids Unknown or Not Available. Discharge Instructions You were admitted to [facility] on with a principal diagnosis of PRE OP EXAM UNSPECIFIED. You were discharged from [facility] on 08/12/2014. Should you have any questions prior to discharge, please contact a member of your healthcare team. If you have left the hospital and have any questions, please contact your primary care physician. Chief Complaint and Reason For Visit Chief Complaint Date of Onset LAB XR CHEST EKG PREOP Function Status Unknown or Not Available. Plan of Care Unknown or Not Available. Referral/Transition of Care Unknown or Not Available.
--- OUTSIDE RECORDS SUMMARY | 2016-11-22 21:00 | External Medical Summary ---
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
--- OUTSIDE RECORDS SUMMARY | 2016-11-22 21:00 | External Medical Summary ---
[...] Instructions Start End Date Status Dosage Date Amiodarone HCl [facility] [address] 200 MG Orally 1 tablet 3-06 Once a day Results No Known Results Summary Purpose eClinicalWorks Submission
--- OUTSIDE RECORDS SUMMARY | 2016-11-22 21:00 | External Medical Summary ---
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 [address] 200 MG Orally 1 tablet 3-06 Once a day Results No Known Results Summary Purpose eClinicalMailWriter Submission
--- OUTSIDE RECORDS SUMMARY | 2016-11-22 21:00 | External Medical Summary | CCD ---
:1930 Author Name ARLENE FOWLER Address [address] [place] [address] Unavailable [place], [place] [phone] Care Team Providers Name Role Phone AMY JACKSON Attending Physician Unavailable Vital Signs Unknown or Not Available. Allergies Allergy Code Allergy Type Reaction Status PCN (penicillin) 0 Drug allergy Active Procedures Procedure Code Procedure Type Date CHEST [id number] 09/07/2015 History of Immunizations Immunization Code Date influenza, [...] 12/13/2013 Problems Unknown or Not Available. Results CARDIAC PANEL - Collect Date/Time: 09/07/2015 16:02 Test Name Code Test Result Test Units Test Ref Range CKMB 1.0 ng/mL L=0.0 H=3.6 CPK 64 U/L L=26 H=308 CKMB% 1.6 % L=0.0 H=4.0 TROPONIN I <0.02 ng/mL L=0.00 H=0.05 COMP METABOLIC - Collect Date/Time: 09/07/2015 16:02 Test Name Code Test Result Test Units Test Ref Range GLUCOSE 109 mg/dL L=70 H=110 BUN 27 mg/dL L=7 H=18 CREATININE 1.64 mg/dL L=0.60 H=1.30 AGE 85 YEARS GFR 40.0 SODIUM 143 mmol/L L=136 H=145 POTASSIUM 4.3 mmol/L L=3.5 H=5.1 CHLORIDE 107 mmol/L L=98 H=107 CO2 31 mmol/L L=21 H=32 CALCIUM 9.6 mg/dL L=8.5 H=10.1 AST 13 U/L L=15 H=37 ALT 23 U/L L=12 H=78 ALKALINE PHOS 96 U/L L=46 H=116 TOTAL PROTEIN 6.4 g/dL L=6.4 H=8.2 ALBUMIN 3.2 g/dL L=3.4 H=5.0 TOTAL BILI 0.40 mg/dL L=0.00 H=1.00 FOLATE (FOLIC ACID) - Collect Date/Time: 09/07/2015 16:02 Test Name Code Test Result Test Units Test Ref Range FOLATE 55.6 ng/mL L=8.6 H=58.9 VITAMIN B12 - Collect Date/Time: 09/07/2015 16:02 Test Name Code Test Result Test Units Test Ref Range VITAMIN B12 612 pg/mL L=193 H=986 CBC W/ DIFF - Collect Date/Time: 09/07/2015 16:02 Test Name Code Test Result Test Units Test Ref Range WBC 7.4 x10^3 L=4.8 H=10.8 RBC 3.17 x10^6 L=4.70 H=6.10 HEMOGLOBIN 10.8 g/dL L=14.0 H=18.0 HEMATOCRIT 32.6 % L=42.0 H=52.0 MCV 103 fL L=80 H=100 MCH 34.1 pg L=27.0 H=33.0 MCHC 33.1 g/dL L=33.0 H=37.0 RDW 14.7 % L=11.5 H=14.5 PLATELETS 195 x10^3 L=150 H=450 MPV 8.4 fL L=7.8 H=11.0 SEG 74 %% L=40 H=80 BAND 0 %% L=0 H=5 LYMPH 17 %% L=20 H=45 MONO 8 %% L=0 H=10 EOS 1 %% L=0 H=5 BASO 0 %% L=0 H=2 ATYP LYMPH 0 %% L=0 H=10 META 0 %% L=0 H=1 REFLEX MAN DIFF YES N/A RBC MORPHOLOGY SEE BELOW N/A ANISO SLIGHT N/A NORMAL: NONE SEEN POIK NONE SEEN N/A NORMAL: NONE SEEN HYPO NONE SEEN N/A NORMAL: NONE SEEN MICRO NONE SEEN N/A NORMAL: NONE SEEN MACRO SLIGHT N/A NORMAL: NONE SEEN POLY NONE SEEN N/A NORMAL: NONE SEEN TOXIC GRAN NONE SEEN N/A NORMAL: NONE SEEN NUCLEATED RBC NONE SEEN N/A NORMAL: NONE SEEN SED RATE AUTO - Collect Date/Time: 09/07/2015 16:02 Test Name Code Test Result Test Units Test Ref Range SED RATE 28 mm/HR L=0 H=10 Active Medications Medication Code Dose Units Frequency Route Modification Start Date/Time Acetaminophen 044130 2191 MILLIGRAMS NEEDED ORAL 07/18/2014 500MG Oral 14:01 Tablet Prescription Detail 1000 MILLIGRAMS ORAL NEEDED Advair Diskus 250/50 922732 1 EACH TWICE A INHALATION 07/18/2014 0.25MG-0.05MG/1INH DAY 14:01 Inhalation Disk Prescription Detail 1 EACH INHALATION TWICE A DAY Allopurinol 920175 150 MILLIGRAMS DAILY ORAL 07/18/2014 300MG Oral 14:01 Tablet Prescription Detail 150 MILLIGRAMS ORAL DAILY Amiodarone 434421 200 MILLIGRAMS DAILY ORAL 07/18/2014 200MG Oral 14:01 Tablet Prescription Detail 200 MILLIGRAMS ORAL DAILY Aspirin 81MG 776256 81 MILLIGRAMS DAILY ORAL 07/18/2014 Oral Tablet, 14:01 Enteric Coated Prescription Detail 81 MILLIGRAMS ORAL DAILY Clopidogrel 75MG 909711 75 MILLIGRAMS DAILY ORAL 07/18/2014 Oral Tablet 14:01 Prescription Detail 75 MILLIGRAMS ORAL DAILY Glucosamine 8186557 500 MILLIGRAMS DAILY ORAL 07/18/2014 500MG Oral 14:01 Capsule Prescription Detail 500 MILLIGRAMS ORAL DAILY Metoprolol 167711 25 MILLIGRAMS TWICE A ORAL 07/18/2014 Succinate 25MG DAY 14:01 Oral Tablet, Extended Release Prescription Detail 25 MILLIGRAMS ORAL TWICE A DAY Ocuvite PreserVision 80192467422 1 EACH DAILY ORAL 07/18/2014 113MG-0.0AH-9921NI-8 14:01 Oral Tablet Prescription Detail 1 EACH ORAL DAILY Polysporin 453295 1 EACH NEEDED TOPICAL 07/18/2014 500U/GM-43585C/GM APPLICATION 14:01 Topical application Ointment Prescription Detail 1 EACH TOPICAL APPLICATION NEEDED Spiriva 18MCG 785919 18 MCG DAILY INHALATION 07/18/2014 Inhalation 14:01 Capsule Prescription Detail 18 MCG INHALATION DAILY Medications Administered During Visit Unknown or Not Available. Encounters Encounter Diagnosis Diagnosis Code Start Date Generalized hyperhidrosis R61 09/07/2015 Social History Smoking Status Code Start Date End Date Former smoker 5865618 Patient Decision Aids Unknown or Not Available. Discharge Instructions You were admitted to [facility] on 09/07/2015 15:52 with a principal diagnosis of Generalized hyperhidrosis You had the following tests done: CARDIAC PANEL CBC W/ DIFF COMP METABOLIC FOLATE (FOLIC ACID) SED RATE AUTO VITAMIN B12 You were discharged from [facility] on 09/07/2015 15:52 Should you have any questions prior to discharge, please contact a member of your healthcare team. If you have left the hospital and have any questions, please contact your primary care physician. Chief Complaint and Reason For Visit Chief Complaint Date of Onset LAB/CXR Function Status Unknown or Not Available. Plan of Care Unknown or Not Available. Referral/Transition of Care Unknown or Not Available.
--- OUTSIDE RECORDS SUMMARY | 2016-11-22 21:00 | External Medical Summary ---
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 Problem NSTEMI (non-ST elevated myocardial I21.4 Active infarction) Problem Other medical terminologist (current) drug Z79.899 Active therapy Problem Old myocardial infarction I25.2 Active Problem Essential (primary) hypertension I10 Active Problem Chronic obstructive pulmonary J44.9 Active disease, unspecified Problem Presence of coronary angioplasty Z95.5 Active implant and graft Medications Medication Code System Code Instructions Start End Date Status Dosage Date Metoprolol [facility] [address] 25 MG Orally Once 1 tablet Tartrate 8-01 a day Results No Known Results Summary Purpose eClinicalWorks Submission
--- OUTSIDE RECORDS SUMMARY | 2016-11-22 21:00 | External Medical Summary | CCD ---
:1930 Author Name ARLENE FOWLER Address [address] [place] [address] Unavailable [place], [place] [id number] Care Team Providers Name Role Phone BJ BEAN Attending Physician Unavailable BJ BEAN Er Physician 1 Unavailable MINERVA AMANDA Rounding (Secondary) Physician Unavailable JONO Telles Nursing Staff Unavailable JORGE A Leo Registered Nurse Unavailable N., AGENCY Registered Nurse Unavailable Vital Signs Vital Sign Value Unit Date/Time Recent/Initial? Weight Measured 225 lbs 12/28/2015 21:32 Initial VS BP Systolic 117 mmHg 12/28/2015 23:00 Initial VS BP Diastolic 63 mmHg 12/28/2015 23:00 Initial VS Respiratory Rate 18 bpm 12/28/2015 23:00 Initial VS Heart Rate 67 bpm 12/28/2015 23:00 Initial VS O2 % BldC Oximetry 100 % 12/28/2015 23:00 Initial VS Body Temperature 97.5 degrees 12/28/2015 23:00 Initial VS Weight Measured 25 lbs 12/29/2015 05:59 Most Recent VS Height 20.2 in 12/29/2015 05:59 Most Recent VS BMI (Body Mass 43.08 kg/m^2 12/29/2015 05:59 Most Recent VS Index) BSA (Body Surface 0.4 m^2 12/29/2015 05:59 Most Recent VS Area) BP Systolic 130 mmHg 12/30/2015 08:02 Most Recent VS BP Diastolic 74 mmHg 12/30/2015 08:02 Most Recent VS Respiratory Rate 18 bpm 12/30/2015 08:02 Most Recent VS Heart Rate 73 bpm 12/30/2015 08:02 Most Recent VS O2 % BldC Oximetry 95 % 12/30/2015 08:02 Most Recent VS Body Temperature 98.1 degrees 12/30/2015 08:02 Most Recent VS Allergies Allergy Code Allergy Type Reaction Status PCN (penicillin) 0 Drug allergy Active Procedures Unknown or Not Available. History of Immunizations Immunization Code Date influenza, split (incl. purified 12/12/2001 surface antigen) influenza, split (incl. purified 12/11/2002 surface antigen) influenza, split (incl. purified [...] Available. Results CARDIAC PANEL - Collect Date/Time: 12/28/2015 20:36 Test Name Code Test Result Test Units Test Ref Range CKMB 1.3 ng/mL L=0.0 H=3.6 CPK 43 U/L L=26 H=308 CKMB% 3.0 % L=0.0 H=4.0 TROPONIN I <0.02 ng/mL L=0.00 H=0.05 COMP METABOLIC - Collect Date/Time: 12/29/2015 07:50 Test Name Code Test Result Test Units Test Ref Range GLUCOSE 93 mg/dL L=70 H=110 BUN 28 mg/dL L=7 H=18 CREATININE 1.32 mg/dL L=0.60 H=1.30 AGE 85 YEARS GFR 51.4 SODIUM 141 mmol/L L=136 H=145 POTASSIUM 3.8 mmol/L L=3.5 H=5.1 CHLORIDE 106 mmol/L L=98 H=107 CO2 24 mmol/L L=21 H=32 CALCIUM 9.3 mg/dL L=8.5 H=10.1 AST 10 U/L L=15 H=37 ALT 23 U/L L=12 H=78 ALKALINE PHOS 69 U/L L=46 H=116 TOTAL PROTEIN 5.7 g/dL L=6.4 H=8.2 ALBUMIN 3.1 g/dL L=3.4 H=5.0 TOTAL BILI 0.60 mg/dL L=0.00 H=1.00 COMP METABOLIC - Collect Date/Time: 12/28/2015 20:36 Test Name Code Test Result Test Units Test Ref Range GLUCOSE 100 mg/dL L=70 H=110 BUN 29 mg/dL L=7 H=18 CREATININE 1.58 mg/dL L=0.60 H=1.30 AGE 85 YEARS GFR 41.8 SODIUM 142 mmol/L L=136 H=145 POTASSIUM 4.1 mmol/L L=3.5 H=5.1 CHLORIDE 104 mmol/L L=98 H=107 CO2 20 mmol/L L=21 H=32 CALCIUM 9.6 mg/dL L=8.5 H=10.1 AST 13 U/L L=15 H=37 ALT 24 U/L L=12 H=78 ALKALINE PHOS 75 U/L L=46 H=116 TOTAL PROTEIN 6.2 g/dL L=6.4 H=8.2 ALBUMIN 3.3 g/dL L=3.4 H=5.0 TOTAL BILI 0.40 mg/dL L=0.00 H=1.00 PRO B-TYPE NATRIURETIC PEPTIDE - Collect Date/Time: 12/28/2015 20:36 Test Name Code Test Result Test Units Test Ref Range PBNP 224 pg/mL L=0 H=450 TROPONIN I (QUANT) - Collect Date/Time: 12/29/2015 07:50 Test Name Code Test Result Test Units Test Ref Range TROPONIN I <0.02 ng/mL L=0.00 H=0.05 TSH - Collect Date/Time: 12/29/2015 07:50 Test Name Code Test Result Test Units Test Ref Range TSH 3.08 uIU/mL L=0.36 H=3.74 ETHANOL, BLOOD - Collect Date/Time: 12/29/2015 07:50 Test Name Code Test Result Test Units Test Ref Range ETHANOL, BLOOD <5 mg/dL L=0 H=5 ETHANOL, BLOOD - Collect Date/Time: 12/28/2015 20:23 Test Name Code Test Result Test Units Test Ref Range ETHANOL, BLOOD 94 mg/dL L=0 H=5 CBC (HEMOGRAM ONLY) - Collect Date/Time: 12/29/2015 07:50 Test Name Code Test Result Test Units Test Ref Range WBC 11.0 x10^3 L=4.8 H=10.8 RBC 2.98 x10^6 L=4.70 H=6.10 HEMOGLOBIN 10.4 g/dL L=14.0 H=18.0 HEMATOCRIT 30.5 % L=42.0 H=52.0 MCV 102 fL L=80 H=100 MCH 34.8 pg L=27.0 H=33.0 MCHC 34.0 g/dL L=33.0 H=37.0 RDW 14.8 % L=11.5 H=14.5 PLATELETS 176 x10^3 L=150 H=450 MPV 8.2 fL L=7.8 H=11.0 CBC W/ DIFF - Collect Date/Time: 12/28/2015 20:36 Test Name Code Test Result Test Units Test Ref Range WBC 10.6 x10^3 L=4.8 H=10.8 RBC 3.19 x10^6 L=4.70 H=6.10 HEMOGLOBIN 11.1 g/dL L=14.0 H=18.0 HEMATOCRIT 32.4 % L=42.0 H=52.0 MCV 101 fL L=80 H=100 MCH 34.9 pg L=27.0 H=33.0 MCHC 34.4 g/dL L=33.0 H=37.0 RDW 14.9 % L=11.5 H=14.5 PLATELETS 199 x10^3 L=150 H=450 MPV 8.2 fL L=7.8 H=11.0 NEUTROPHILS 77.0 % L=40.0 H=80.0 LYMPHOCYTES 15.0 % L=20.0 H=45.0 MONOCYTES 5.8 % L=0.0 H=10.0 EOSINOPHILS 1.5 % L=0.0 H=5.0 BASOPHILS 0.7 % L=0.0 H=2.0 REFLEX MAN DIFF NO N/A PT/INR - Collect Date/Time: 12/28/2015 20:36 Test Name Code Test Result Test Units Test Ref Range PT 9.4 Secs L=9.4 H=11.0 INR 0.92 L=0.00 H=4.00 Active Medications Medication Code Dose Units Frequency Route Modification Start Date/Time FERROUS 170664 325 MG DAILY PO 12/30/2015 GLUCONATE TAB: 08:00 325 MG SALINE FLUSH 966221 10 ML PRN IV PUSH 12/29/2015 10ML SYRINGE 21:00 AMBIEN TAB: 5 142541 5 MG PRN QHS PO 12/29/2015 MG 20:03 SPIRIVA INH/NEB 474767 1 PUFF QD INH 12/29/2015 CAP: 18 MCG 20:00 FLONASE 4854543 1 SPRAY BID NASAL 12/29/2015 (FLUTICASONE)NA 19:54 PHUONG SPRAY:50 MCG ALLOPURINOL 623595 150 MG DAILY PO 12/29/2015 (ZYLOPRIM) TAB 18:00 : 100MG LIPITOR 519417 20 MG QD PO 12/29/2015 (ATORVASTATIN) 14:00 TAB: 20 MG ADVAIR DISKUS 725662 1 PUFF DAILY INH 12/29/2015 INH: 250-50 12:00 POLYETHYLENE 497837 17 GM PRN DAILY ORAL 12/29/2015 (MIRALAX PEG) 10:25 PWD: 17 GRAMS AMIODARONE 952877 200 MG QD PO 12/29/2015 (PACERONE) TAB 10:13 : 200MG NF-MAGNESIUM 277504 250 MG DAILY ORAL 12/29/2015 CARBONATE ORAL 10:06 CAPSULE 125M FUROSEMIDE 341888 40 MG QD PO 12/29/2015 (LASIX)TAB:20 10:00 MG K (KLOR CON) 9470338 30 MEQ QD PO 12/29/2015 TAB : 20 MEQ 10:00 TERAZOSIN 998071 10 MG QHS PO 12/29/2015 (HYTRIN) CAP : 10:00 5MG CLOPIDOGREL 636332 75 MG QD PO 12/29/2015 (PLAVIX) TAB : 08:21 75MG ASPIRIN 234568 81 MG QD PO 12/29/2015 CHEWABLE TAB: 08:20 81 MG ENOXAPARIN 377355 40 MG QD SQ 12/28/2015 (LOVENOX) INJ : 21:42 10MG/.1 ML Medications Administered During Visit Medication Dose Units Frequency Route Date/Time of Last Dose ENOXAPARIN 40 MG QD SQ 12/30/2015 08:07 (LOVENOX) INJ : 10MG/.1 ML ASPIRIN CHEWABLE 81 MG QD PO 12/30/2015 08:07 TAB: 81 MG CLOPIDOGREL 75 MG QD PO 12/30/2015 08:07 (PLAVIX) TAB : 75MG K (KLOR CON) TAB : 30 MEQ QD PO 12/30/2015 08:07 20 MEQ FUROSEMIDE 40 MG QD PO 12/30/2015 08:07 (LASIX)TAB:20 MG TERAZOSIN (HYTRIN) 10 MG QHS PO 12/29/2015 20:18 CAP : 5MG SPIRIVA INH/NEB 1 PUFF QD INH 12/29/2015 20:18 CAP: 18 MCG FERROUS GLUCONATE 325 MG DAILY PO 12/30/2015 08:08 TAB: 325 MG ALLOPURINOL 150 MG DAILY PO 12/29/2015 18:06 (ZYLOPRIM) TAB : 100MG AMIODARONE 200 MG QD PO 12/30/2015 08:07 (PACERONE) TAB : 200MG AMBIEN TAB: 5 MG 5 MG PRN QHS PO 12/29/2015 21:30 SALINE FLUSH 10ML 10 ML PRN IV PUSH 12/29/2015 21:00 SYRINGE Encounters Encounter Diagnosis Diagnosis Code Start Date Transient cerebral ischemic G459 12/28/2015 attack, unspecified Social History Smoking Status Code Start Date End Date Former smoker [id number] Patient Decision Aids Patient Decision Aid Patient Portal Access Discharge Instructions You were admitted to [facility] on 12/28/2015 21:32 with a principal diagnosis of Transient cerebral ischemic attack, unspecified You had the following tests done: CARDIAC PANEL CBC (HEMOGRAM ONLY) CBC W/ DIFF COMP METABOLIC COMP METABOLIC ETHANOL, BLOOD ETHANOL, BLOOD PRO B- TYPE NATRIURETIC PEPTIDE PT/INR TROPONIN I (QUANT) TSH You were discharged from [facility] on 12/30/2015 11:37 Should you have any questions prior to discharge, please contact a member of your healthcare team. If you have left the hospital and have any questions, please contact your primary care physician. DIET: soft foods Discharge To: Home. Mode of Transportation: Wheelchair. Accompanied By: spouse Chief Complaint and Reason For Visit Chief Complaint Date of Onset CHEST PAIN Function Status Unknown or Not Available. Plan of Care Unknown or Not Available. Referral/Transition of Care Unknown or Not Available.
--- OUTSIDE RECORDS SUMMARY | 2016-11-22 21:01 | External Medical Summary ---
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
--- OUTSIDE RECORDS SUMMARY | 2016-11-22 21:01 | External Medical Summary | CCD ---
:1930 Author Name ARLENE FOWLER Address [address] [place] [address] Unavailable [place], [place] [id number] Care Team Providers Name Role Phone TRINH JACKSON Attending Physician Unavailable CRISTIAN Chinchilla Registered Nurse Unavailable Vital Signs Unknown or [...] Units Frequency Route Modification Start Date/Time Acetaminophen 469479 6990 MILLIGRAMS NEEDED ORAL 07/18/2014 500MG Oral 14:01 Tablet Prescription Detail 1000 MILLIGRAMS ORAL NEEDED Advair Diskus 250/50 066368 1 EACH TWICE A INHALATION 07/18/2014 0.25MG-0.05MG/1INH DAY 14:01 Inhalation Disk Prescription Detail 1 EACH INHALATION TWICE A DAY Allopurinol 658124 150 MILLIGRAMS DAILY ORAL 07/18/2014 300MG Oral 14:01 Tablet Prescription Detail 150 MILLIGRAMS ORAL DAILY Amiodarone 886024 200 MILLIGRAMS DAILY ORAL 07/18/2014 200MG Oral 14:01 Tablet Prescription Detail 200 MILLIGRAMS ORAL DAILY Aspirin 81MG 127045 81 MILLIGRAMS DAILY ORAL 07/18/2014 Oral Tablet, 14:01 Enteric Coated Prescription Detail 81 MILLIGRAMS ORAL DAILY Clopidogrel 75MG 189871 75 MILLIGRAMS DAILY ORAL 07/18/2014 Oral Tablet 14:01 Prescription Detail 75 MILLIGRAMS ORAL DAILY Glucosamine 6357929 500 MILLIGRAMS DAILY ORAL 07/18/2014 500MG Oral 14:01 Capsule Prescription Detail 500 MILLIGRAMS ORAL DAILY Metoprolol 106102 25 MILLIGRAMS TWICE A ORAL 07/18/2014 Succinate 25MG DAY 14:01 Oral Tablet, Extended Release Prescription Detail 25 MILLIGRAMS ORAL TWICE A DAY Ocuvite PreserVision 08145980530 1 EACH DAILY ORAL 07/18/2014 113MG-[id number] 14:01 Oral Tablet Prescription Detail 1 EACH ORAL DAILY Polysporin 712595 1 EACH NEEDED TOPICAL 07/18/2014 500U/GM-76823V/GM APPLICATION 14:01 Topical application Ointment Prescription Detail 1 EACH TOPICAL APPLICATION NEEDED Spiriva 18MCG 483311 18 MCG DAILY INHALATION 07/18/2014 Inhalation 14:01 Capsule Prescription Detail 18 MCG INHALATION DAILY Medications Administered During Visit Unknown or Not Available. Encounters Encounter Diagnosis Diagnosis Code Start Date Old myocardial infarction I252 11/13/2014 Social History Smoking Status Code Start Date End Date Former smoker [id number] Patient Decision Aids Unknown or Not Available. Discharge Instructions You were admitted to [facility] on 02/2014 with a principal diagnosis of Old myocardial infarction. Should you have any questions prior to discharge, please contact a member of your healthcare team. If you have left the hospital and have any questions, please contact your primary care physician. Chief Complaint and Reason For Visit Unknown or Not Available. Function Status Unknown or Not Available. Referral/Transition of Care Unknown or Not Available.
--- OUTSIDE RECORDS SUMMARY | 2016-11-22 21:01 | External Medical Summary | CCD ---
:1930 Author Name ARLENE FOWLER Address [address] [place] [address] Unavailable [place], [place] [id number] Care Team Providers Name Role Phone AMY [...] Units Frequency Route Modification Start Date/Time Acetaminophen 726529 7316 MILLIGRAMS NEEDED ORAL 07/18/2014 500MG Oral 14:01 Tablet Prescription Detail 1000 MILLIGRAMS ORAL NEEDED Advair Diskus 250/50 505003 1 EACH TWICE A INHALATION 07/18/2014 0.25MG-0.05MG/1INH DAY 14:01 Inhalation Disk Prescription Detail 1 EACH INHALATION TWICE A DAY Allopurinol 119588 150 MILLIGRAMS DAILY ORAL 07/18/2014 300MG Oral 14:01 Tablet Prescription Detail 150 MILLIGRAMS ORAL DAILY Amiodarone 544829 200 MILLIGRAMS DAILY ORAL 07/18/2014 200MG Oral 14:01 Tablet Prescription Detail 200 MILLIGRAMS ORAL DAILY Aspirin 81MG 833414 81 MILLIGRAMS DAILY ORAL 07/18/2014 Oral Tablet, 14:01 Enteric Coated Prescription Detail 81 MILLIGRAMS ORAL DAILY Clopidogrel 75MG 838607 75 MILLIGRAMS DAILY ORAL 07/18/2014 Oral Tablet 14:01 Prescription Detail 75 MILLIGRAMS ORAL DAILY Glucosamine 4398556 500 MILLIGRAMS DAILY ORAL 07/18/2014 500MG Oral 14:01 Capsule Prescription Detail 500 MILLIGRAMS ORAL DAILY Metoprolol 935379 25 MILLIGRAMS TWICE A ORAL 07/18/2014 Succinate 25MG DAY 14:01 Oral Tablet, Extended Release Prescription Detail 25 MILLIGRAMS ORAL TWICE A DAY Ocuvite PreserVision 91109895031 1 EACH DAILY ORAL 07/18/2014 113MG-[id number]-0 14:01 Oral Tablet Prescription Detail 1 EACH ORAL DAILY Polysporin 250714 1 EACH NEEDED TOPICAL 07/18/2014 500U/GM-17459B/GM APPLICATION 14:01 Topical application Ointment Prescription Detail 1 EACH TOPICAL APPLICATION NEEDED Spiriva 18MCG 308702 18 MCG DAILY INHALATION 07/18/2014 Inhalation 14:01 Capsule Prescription Detail 18 MCG INHALATION DAILY Medications Administered During Visit Unknown or Not Available. Encounters Encounter Diagnosis Diagnosis Code Start Date Other nonspecific abnormal R918 09/08/2015 finding of lung field Social History Smoking Status Code Start Date End Date Former smoker [id number] Patient Decision Aids Unknown or Not Available. Discharge Instructions You were admitted to [facility] on 09/08/2015 13:21 with a principal diagnosis of Other nonspecific abnormal finding of lung field You were discharged from [facility] on 09/08/2015 13:21 Should you have any questions prior to discharge, please contact a member of your healthcare team. If you have left the hospital and have any questions, please contact your primary care physician. Chief Complaint and Reason For Visit Chief Complaint Date of Onset XR CHEST Function Status Unknown or Not Available. Plan of Care Unknown or Not Available. Referral/Transition of Care Unknown or Not Available.
--- OUTSIDE RECORDS SUMMARY | 2016-11-22 21:01 | External Medical Summary | Continuity of Care Document ---
:1930 Demographics x Preferred Language Unknown Marital Status Unknown Jewish Affiliation Unknown Race Unknown Ethnic Group Unknown Author Organization [facility] Allergies Medications Problems Date Dx Attending Type Code Diagnosis Diagnosed By Coded 07/10/2015 Pedraza Janel Reason J44.9 Chronic obstructive pulmonary disease, unspecified 07/10/2015 NIGEL MURRAY, J44.9 Chronic NIGEL MURRAY, ROVERTO Lyle obstructive ROVERTO R pulmonary disease, unspecified 07/10/2015 NIGEL MURRAY, R09.02 Hypoxemia ROEVRTO PEDRAZA MD R 07/17/2015 NIGEL MURRAY J44.9 Dhiraj PEDRAZA MD, ROVERTO Lyle obstructive ROVERTO R pulmonary disease, unspecified Procedures Code Description Performed By Performed On ROVERTO PEDRAZA MD 07/17/2015 51068 Bronchodilation [place] [address], pre- and post-bronchodilator administration ROVERTO Toribio MD 07/17/2015 98500 dilution or washout for determination of lung volumes and, when performed, distribution of ROVERTO Patel MD 07/17/2015 19153 Diffusing capacity (eg, carbon monoxide, membrane) (List separately in addition to code for primary ROVERTO PEDRAZA MD 07/17/2015 31034 Bronchodilation [place] [address], pre- and post-bronchodilator administration ROVERTO Toribio MD 07/17/2015 90382 dilution or washout for determination of lung volumes and, when performed, distribution of ROVERTO Patel MD 07/17/2015 62991 Diffusing capacity (eg, carbon monoxide, membrane) (List separately in addition to code for primary ROVERTO PEDRAZA MD 08/06/2015 72887 Bronchodilation responsiveness[place] [address], pre- and post-bronchodilator administration ROVERTO Toribio MD 08/06/2015 22864 dilution or washout for determination of lung volumes and, when performed, distribution of ROVERTO Patel MD 08/06/2015 22658 Diffusing capacity (eg, carbon monoxide, membrane) (List separately in addition to code for primary Office ROVERTO PEDRAZA MD 08/06/2015 92792 consultation for a new or established patient, which requires these 3 rothman components: A compr Office ROVERTO PEDRAZA MD 10/27/2015 09919 consultation for a new or established patient, which requires these 3 rothman components: A compr Results Encounters ACCT No. Visit Discharge Status Pt. Type Provider Facility Loc./Unit Complaint Date/Time [id number] 01/31/2016 01/31/2016 CLS Outpatient NIGEL 21:11:01 23:59:59 ROVERTO MURRAY [id number] 02/26/2016 ACT Unknown [id number] 09:37:00 [id number] 02/12/2016 ACT Unknown [id number] 09:48:00 [id number] 02/12/2016 ACT Unknown [id number] 09:48:00 [id number] 01/26/2016 ACT Unknown [id number] 08:54:00 [id number] 01/13/2016 ACT Unknown [id number] 12:41:00 [id number] 12/21/2015 ACT Unknown [id number] 14:16:00 [id number] 12/21/2015 ACT Unknown [id number] 13:54:00 [id number] 06/17/2015 ACT Unknown [id number] 11:10:00 [id number] 06/17/2015 ACT Unknown [id number] 11:00:00 [id number] 05/08/2015 ACT Unknown [id number] 08:01:00 [id number] 03/06/2015 ACT Unknown [id number] 12:49:00 [id number] 03/06/2015 ACT Unknown [id number] 12:49:00 [id number] 03/05/2015 ACT Unknown [id number] 18:09:00 [id number] 03/05/2015 ACT Unknown [id number] 17:47:00 [id number] 01/07/2014 ACT Unknown [id number] 08:28:00 [id number] 11/11/2013 ACT Unknown [id number] 11:13:00 [id number] 08/22/2013 ACT Unknown [id number] 08:54:00 [id number] 07/09/2015 07/09/2015 DIS Outpatient [facility] Di[facility] copd [facility] 11:45:00 23:59:00 [facility]
--- OUTSIDE RECORDS SUMMARY | 2016-11-22 21:01 | External Medical Summary | Referral Summary ---
:1930 Author Organization [facility] Address [address] [place] [address] Care Team Providers Name Role Phone Rohan Yusuf Primary Care Physician Encounter [facility] [id number] Date(s): 07/09/15 - 07/09/15 [facility] [address] [place] [address] Discharge Disposition: 01-Home or Self Care Attending Physician: Brigida Pedraza MD Admitting Physician: Brigida Pedraza MD Vital Signs No data available for this section Problem List No data available for this section Allergies, Adverse Reactions, Alerts No data available for this section Medications No data available for this section Results No data available for this section Immunizations No data available for this section Procedures No data available for this section Social History No data available for this section Assessment and Plan No data available for this section
--- OUTSIDE RECORDS SUMMARY | 2016-11-22 21:01 | External Medical Summary | CCD ---
:1930 Author Name ARLENE FOWLER Address [address] [place] [address] Unavailable [place], [place] [phone] Care Team Providers Name Role Phone AMY JACKSON Attending Physician Unavailable NATHANIEL GREEN (Secondary) Physician Unavailable Vital Signs Unknown or [...] Available. Results COMP METABOLIC - Collect Date/Time: 05/21/2015 11:30 Test Name Code Test Result Test Units Test Ref Range GLUCOSE 116 mg/dL L=70 H=110 BUN 22 mg/dL L=7 H=18 CREATININE 1.46 mg/dL L=0.60 H=1.30 AGE 85 YEARS GFR 45.8 SODIUM 145 mmol/L L=136 H=145 POTASSIUM 4.2 mmol/L L=3.5 H=5.1 CHLORIDE 106 mmol/L L=98 H=107 CO2 30 mmol/L L=21 H=32 CALCIUM 9.4 mg/dL L=8.5 H=10.1 AST 18 U/L L=15 H=37 ALT 32 U/L L=12 H=78 ALKALINE PHOS 87 U/L L=46 H=116 TOTAL PROTEIN 6.8 g/dL L=6.4 H=8.2 ALBUMIN 3.6 g/dL L=3.4 H=5.0 TOTAL BILI 0.90 mg/dL L=0.00 H=1.00 LIPID PANEL - Collect Date/Time: 05/21/2015 11:30 Test Name Code Test Result Test Units Test Ref Range CHOLESTEROL 201 mg/dL L=0 H=200 TRIGLYCERIDES 71 mg/dL L=30 H=150 HDL 71 mg/dL L=40 H=60 LDL, CALC 116 mg/dL L=0 H=100 VLDL 14 mg/dL L=0 H=40 CHOL/HDL RISK 2.8 RATIO L=0.0 H=5.0 PT FASTING: YES N/A PSA - Collect Date/Time: 05/21/2015 11:30 Test Name Code Test Result Test Units Test Ref Range PSA 0.41 ng/mL L=0.00 H=4.00 CBC W/ DIFF - Collect Date/Time: 05/21/2015 11:30 Test Name Code Test Result Test Units Test Ref Range WBC 7.8 x10^3 L=4.8 H=10.8 RBC 3.64 x10^6 L=4.70 H=6.10 HEMOGLOBIN 12.4 g/dL L=14.0 H=18.0 HEMATOCRIT 37.3 % L=42.0 H=52.0 MCV 103 fL L=80 H=100 MCH 34.1 pg L=27.0 H=33.0 MCHC 33.2 g/dL L=33.0 H=37.0 RDW 15.0 % L=11.5 H=14.5 PLATELETS 143 x10^3 L=150 H=450 MPV 9.2 fL L=7.8 H=11.0 NEUTROPHILS 78.0 % L=40.0 H=80.0 LYMPHOCYTES 11.8 % L=20.0 H=45.0 MONOCYTES 8.0 % L=0.0 H=10.0 EOSINOPHILS 2.0 % L=0.0 H=5.0 BASOPHILS 0.2 % L=0.0 H=2.0 REFLEX MAN DIFF NO N/A Active Medications Medication Code Dose Units Frequency Route Modification Start Date/Time Acetaminophen 954118 0015 MILLIGRAMS NEEDED ORAL 07/18/2014 500MG Oral 14:01 Tablet Prescription Detail 1000 MILLIGRAMS ORAL NEEDED Advair Diskus 250/50 388652 1 EACH TWICE A INHALATION 07/18/2014 0.25MG-0.05MG/1INH DAY 14:01 Inhalation Disk Prescription Detail 1 EACH INHALATION TWICE A DAY Allopurinol 645589 150 MILLIGRAMS DAILY ORAL 07/18/2014 300MG Oral 14:01 Tablet Prescription Detail 150 MILLIGRAMS ORAL DAILY Amiodarone 907432 200 MILLIGRAMS DAILY ORAL 07/18/2014 200MG Oral 14:01 Tablet Prescription Detail 200 MILLIGRAMS ORAL DAILY Aspirin 81MG 843693 81 MILLIGRAMS DAILY ORAL 07/18/2014 Oral Tablet, 14:01 Enteric Coated Prescription Detail 81 MILLIGRAMS ORAL DAILY Clopidogrel 75MG 265235 75 MILLIGRAMS DAILY ORAL 07/18/2014 Oral Tablet 14:01 Prescription Detail 75 MILLIGRAMS ORAL DAILY Glucosamine 8476570 500 MILLIGRAMS DAILY ORAL 07/18/2014 500MG Oral 14:01 Capsule Prescription Detail 500 MILLIGRAMS ORAL DAILY Metoprolol 000267 25 MILLIGRAMS TWICE A ORAL 07/18/2014 Succinate 25MG DAY 14:01 Oral Tablet, Extended Release Prescription Detail 25 MILLIGRAMS ORAL TWICE A DAY Ocuvite PreserVision 92626145815 1 EACH DAILY ORAL 07/18/2014 113MG-[id number] 14:01 Oral Tablet Prescription Detail 1 EACH ORAL DAILY Polysporin 557873 1 EACH NEEDED TOPICAL 07/18/2014 500U/GM-18392I/GM APPLICATION 14:01 Topical application Ointment Prescription Detail 1 EACH TOPICAL APPLICATION NEEDED Spiriva 18MCG 836543 18 MCG DAILY INHALATION 07/18/2014 Inhalation 14:01 Capsule Prescription Detail 18 MCG INHALATION DAILY Medications Administered During Visit Unknown or Not Available. Encounters Encounter Diagnosis Diagnosis Code Start Date Anemia, unspecified D649 05/21/2015 Social History Smoking Status Code Start Date End Date Former smoker [id number] Patient Decision Aids Unknown or Not Available. Discharge Instructions You were admitted to [facility] on 05/21/2015 11:15 with a principal diagnosis of Anemia, unspecified You had the following tests done: CBC W/ DIFF COMP METABOLIC LIPID PANEL PSA You were discharged from [facility] on 05/21/2015 11:15 Should you have any questions prior to [...]
--- OUTSIDE RECORDS SUMMARY | 2016-11-22 21:01 | External Medical Summary ---
:1930 Author Organization [employer] Care Team Providers Name Role Phone Spenser [...] Problem Essential (primary) hypertension I10 Active Medications No Known Medications Results No Known Results Summary Purpose [facility] Submission
--- OUTSIDE RECORDS SUMMARY | 2016-11-22 21:01 | External Medical Summary | CCD ---
:1930 Author Name LETTY CERDA Address [address] [place] [id number] Care Team Providers Name Role Phone TRINH JACKSON Attending Physician Unavailable Vital Signs Unknown [...] Available. Results BASIC METABOLIC - Collect Date/Time: 07/25/2014 10:35 Test Name Code Test Result Test Units Test Ref Range GLUCOSE 111 mg/dL L=70 H=110 BUN 25 mg/dL L=7 H=18 CREATININE 1.40 mg/dL L=0.60 H=1.30 AGE 84 YEARS GFR 51.2 SODIUM 141 mmol/L L=136 H=145 POTASSIUM 4.6 mmol/L L=3.5 H=5.1 CHLORIDE 106 mmol/L L=98 H=107 CO2 26 mmol/L L=21 H=32 CALCIUM 9.8 mg/dL L=8.5 H=10.1 Active Medications Medication Code Dose Units Frequency Route Modification Start Date/Time Klor-Con M20 789635 20 MILLIEQUIVA DAILY BY MOUTH 07/19/2014 20MEQ Oral LENT 09:17 Tablet, Extended Release Acetaminophen 208797 2465 MILLIGRAMS NEEDED ORAL 07/18/2014 500MG Oral 14:01 Tablet Advair Diskus 120140 1 EACH TWICE A INHALATION 07/18/2014 250/50 DAY 14:01 0.25MG-0.05MG/1I NH Inhalation Disk Allopurinol 120576 150 MILLIGRAMS DAILY ORAL 07/18/2014 300MG Oral 14:01 Tablet Amiodarone 200MG 467771 200 MILLIGRAMS DAILY ORAL 07/18/2014 Oral Tablet 14:01 Aspirin 81MG 390292 81 MILLIGRAMS DAILY ORAL 07/18/2014 Oral Tablet, 14:01 Enteric Coated Benicar 5MG Oral 148594 07/18/2014 Tablet 14:01 Bumetanide 1MG 601213 07/18/2014 Oral Tablet 14:01 Clopidogrel 75MG 719367 75 MILLIGRAMS DAILY ORAL 07/18/2014 Oral Tablet 14:01 Fish Oil 1000MG 757814 9548 MILLIGRAMS ORAL 07/18/2014 Oral Capsule, 14:01 Liquid Filled Glucosamine 8852348 500 MILLIGRAMS DAILY ORAL 07/18/2014 500MG Oral 14:01 Capsule Hydrochlorothiaz 351491 25 MILLIGRAMS DAILY ORAL 07/18/2014 godwin 25MG Oral 14:01 Tablet Magnesium 0 500 MILLIGRAMS DAILY ORAL 07/18/2014 14:01 Metoprolol 490940 25 MILLIGRAMS TWICE A ORAL 07/18/2014 Succinate 25MG DAY 14:01 Oral Tablet, Extended Release Nexium 20MG Oral 043946 20 MILLIGRAMS DAILY ORAL 07/18/2014 Capsule, Delayed 14:01 Release Ocuvite 8088043208 1 EACH DAILY ORAL 07/18/2014 PreserVision 2 14:01 113MG-0.4MG-7160 IU-1 Oral Tablet Polysporin 143872 1 EACH NEEDED TOPICAL 07/18/2014 500U/GM-60149B/G APPLICATIO 14:01 M Topical N application Ointment Spiriva 18MCG 313091 18 MCG DAILY INHALATION 07/18/2014 Inhalation 14:01 Capsule Terazosin HCl 944629 07/18/2014 5MG Oral Capsule 14:01 Vitamin D 2000IU 0094079632 2000 INTERNATION DAILY ORAL 07/18/2014 Oral Tablet 0 AL UNITS 14:01 Medications Administered During Visit Unknown or Not Available. Encounters Encounter Diagnosis Diagnosis Code Start Date HYPOPOTASSEMIA 2768 07/25/2014 Social History Smoking Status Code Start Date End Date Former smoker 0652600 Patient Decision Aids Unknown or Not Available. Discharge Instructions You were admitted to [facility] on 01/2015 with a principal diagnosis of HYPOPOTASSEMIA. You were discharged from [facility] on 07/25/2014. Should you have any questions prior to discharge, please contact a member of your healthcare team. If you have left the hospital and have any questions, please contact your primary care physician. Chief Complaint and Reason For Visit Unknown or Not Available. Function Status Unknown or Not Available. Plan of Care Unknown or Not Available. Referral/Transition of Care Unknown or Not Available.
--- OUTSIDE RECORDS SUMMARY | 2016-11-22 21:01 | External Medical Summary | CCD ---
:1930 Author Name ARLENE FOWLER Address [address] [place] [address] Unavailable [place], [place] [phone] Care Team Providers Name Role Phone AMY [...] Available. Results BASIC METABOLIC - Collect Date/Time: 01/28/2016 13:55 Test Name Code Test Result Test Units Test Ref Range GLUCOSE 99 mg/dL L=70 H=110 BUN 20 mg/dL L=7 H=18 CREATININE 1.25 mg/dL L=0.60 H=1.30 AGE 85 YEARS GFR 54.8 L=60.0 H=120 SODIUM 142 mmol/L L=136 H=145 POTASSIUM 3.9 mmol/L L=3.5 H=5.1 CHLORIDE 106 mmol/L L=98 H=107 CO2 27 mmol/L L=21 H=32 CALCIUM 9.6 mg/dL L=8.5 H=10.1 CBC W/ DIFF - Collect Date/Time: 01/28/2016 13:55 Test Name Code Test Result Test Units Test Ref Range WBC 9.9 x10^3 L=4.8 H=10.8 RBC 3.50 x10^6 L=4.70 H=6.10 HEMOGLOBIN 12.1 g/dL L=14.0 H=18.0 HEMATOCRIT 35.4 % L=42.0 H=52.0 MCV 101 fL L=80 H=100 MCH 34.6 pg L=27.0 H=33.0 MCHC 34.2 g/dL L=33.0 H=37.0 RDW 14.2 % L=11.5 H=14.5 PLATELETS 186 x10^3 L=150 H=450 MPV 9.8 fL L=7.8 H=11.0 NEUTROPHILS 77.9 % L=40.0 H=80.0 LYMPHOCYTES 13.5 % L=20.0 H=45.0 MONOCYTES 5.9 % L=0.0 H=10.0 EOSINOPHILS 2.2 % L=0.0 H=5.0 BASOPHILS 0.5 % L=0.0 H=2.0 REFLEX MAN DIFF NO N/A Active Medications Medication Code Dose Units Frequency Route Modification Start Date/Time Acetaminophen 621072 5219 MILLIGRAMS NEEDED ORAL 07/18/2014 500MG Oral 14:01 Tablet Prescription Detail 1000 MILLIGRAMS ORAL NEEDED Advair Diskus 250/50 658911 1 EACH TWICE A INHALATION 07/18/2014 0.25MG-0.05MG/1INH DAY 14:01 Inhalation Disk Prescription Detail 1 EACH INHALATION TWICE A DAY Allopurinol 376773 150 MILLIGRAMS DAILY ORAL 07/18/2014 300MG Oral 14:01 Tablet Prescription Detail 150 MILLIGRAMS ORAL DAILY Amiodarone 147328 200 MILLIGRAMS DAILY ORAL 07/18/2014 200MG Oral 14:01 Tablet Prescription Detail 200 MILLIGRAMS ORAL DAILY Aspirin 81MG 800535 81 MILLIGRAMS DAILY ORAL 07/18/2014 Oral Tablet, 14:01 Enteric Coated Prescription Detail 81 MILLIGRAMS ORAL DAILY Clopidogrel 75MG 533076 75 MILLIGRAMS DAILY ORAL 07/18/2014 Oral Tablet 14:01 Prescription Detail 75 MILLIGRAMS ORAL DAILY Glucosamine 5219710 500 MILLIGRAMS DAILY ORAL 07/18/2014 500MG Oral 14:01 Capsule Prescription Detail 500 MILLIGRAMS ORAL DAILY Metoprolol 217157 25 MILLIGRAMS TWICE A ORAL 07/18/2014 Succinate 25MG DAY 14:01 Oral Tablet, Extended Release Prescription Detail 25 MILLIGRAMS ORAL TWICE A DAY Ocuvite PreserVision 84066467059 1 EACH DAILY ORAL 07/18/2014 113MG-0.6EQ-1758XN-9 14:01 Oral Tablet Prescription Detail 1 EACH ORAL DAILY Polysporin 761590 1 EACH NEEDED TOPICAL 07/18/2014 500U/GM-57794F/GM APPLICATION 14:01 Topical application Ointment Prescription Detail 1 EACH TOPICAL APPLICATION NEEDED Spiriva 18MCG 490073 18 MCG DAILY INHALATION 07/18/2014 Inhalation 14:01 Capsule Prescription Detail 18 MCG INHALATION DAILY Medications Administered During Visit Unknown or Not Available. Encounters Encounter Diagnosis Diagnosis Code Start Date Anemia, unspecified D649 01/28/2016 Social History Smoking Status Code Start Date End Date Former smoker [id number] Patient Decision Aids Unknown or Not Available. Discharge Instructions You were admitted to [facility] on 01/28/2016 13:47 with a principal diagnosis of Anemia, unspecified You had the following tests done: BASIC METABOLIC CBC W/ DIFF You were discharged from [facility] on 01/28/2016 13:47 Should you have any questions prior [...]
--- OUTSIDE RECORDS SUMMARY | 2016-11-22 21:01 | External Medical Summary | Summary of Care ---
:1930 Author Name Kay Maria M.D. Address [address] [place], [place] [phone] Care Team Providers Name Role Phone Kay Maria M.D. Unavailable Unavailable aRina Ibrahim Primary Care Provider Unavailable Unavailable Unavailable [...] Planned Encounters Appointment; Provider: Maynor Maria On 23-Jun-2014 11:00 Appointment; Provider: Maynor Maria On 05-Jun-2014 15:30 Instructions Instructions not documented Encounters Appointment; Maynor Maria On 09-Jun-2014 Encounter Diagnosis: [...]
--- OUTSIDE RECORDS SUMMARY | 2016-11-22 21:01 | External Medical Summary | CCD ---
:1930 Author Name ARLENE FOWLER Address [address] [place] [address] Unavailable [place], [place] [phone] Care Team Providers Name Role Phone MINERVA AMANDA Attending Physician Unavailable Vital Signs Unknown or [...] Units Frequency Route Modification Start Date/Time Acetaminophen 413467 0806 MILLIGRAMS NEEDED ORAL 07/18/2014 500MG Oral 14:01 Tablet Prescription Detail 1000 MILLIGRAMS ORAL NEEDED Advair Diskus 250/50 091272 1 EACH TWICE A INHALATION 07/18/2014 0.25MG-0.05MG/1INH DAY 14:01 Inhalation Disk Prescription Detail 1 EACH INHALATION TWICE A DAY Allopurinol 941791 150 MILLIGRAMS DAILY ORAL 07/18/2014 300MG Oral 14:01 Tablet Prescription Detail 150 MILLIGRAMS ORAL DAILY Amiodarone 631599 200 MILLIGRAMS DAILY ORAL 07/18/2014 200MG Oral 14:01 Tablet Prescription Detail 200 MILLIGRAMS ORAL DAILY Aspirin 81MG 553760 81 MILLIGRAMS DAILY ORAL 07/18/2014 Oral Tablet, 14:01 Enteric Coated Prescription Detail 81 MILLIGRAMS ORAL DAILY Clopidogrel 75MG 692324 75 MILLIGRAMS DAILY ORAL 07/18/2014 Oral Tablet 14:01 Prescription Detail 75 MILLIGRAMS ORAL DAILY Glucosamine 8312860 500 MILLIGRAMS DAILY ORAL 07/18/2014 500MG Oral 14:01 Capsule Prescription Detail 500 MILLIGRAMS ORAL DAILY Metoprolol 765953 25 MILLIGRAMS TWICE A ORAL 07/18/2014 Succinate 25MG DAY 14:01 Oral Tablet, Extended Release Prescription Detail 25 MILLIGRAMS ORAL TWICE A DAY Ocuvite PreserVision 45857131946 1 EACH DAILY ORAL 07/18/2014 113MG-0.9BS-8131MV-8 14:01 Oral Tablet Prescription Detail 1 EACH ORAL DAILY Polysporin 024664 1 EACH NEEDED TOPICAL 07/18/2014 500U/GM-68442N/GM APPLICATION 14:01 Topical application Ointment Prescription Detail 1 EACH TOPICAL APPLICATION NEEDED Spiriva 18MCG 761162 18 MCG DAILY INHALATION 07/18/2014 Inhalation 14:01 Capsule Prescription Detail 18 MCG INHALATION DAILY Medications Administered During Visit Unknown or Not Available. Encounters Encounter Diagnosis Diagnosis Code Start Date Heart failure, unspecified I509 01/11/2016 Social History Smoking Status Code Start Date End Date Former smoker 1206633 Patient Decision Aids Unknown or Not Available. Discharge Instructions You were admitted to [facility] on 01/11/2016 11:27 with a principal diagnosis of Heart failure, unspecified You were discharged from [facility] on 01/11/2016 11:27 Should you have any questions prior to discharge, please contact a member of your healthcare team. If you have left the hospital and have any questions, please contact your primary care physician. Chief Complaint and Reason For Visit Chief Complaint Date of Onset US ECHO 2D COMP Function Status Unknown or Not Available. Plan of Care Unknown or Not Available. Referral/Transition of Care Unknown or Not Available.
--- OUTSIDE RECORDS SUMMARY | 2016-11-22 21:01 | External Medical Summary ---
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
--- OUTSIDE RECORDS SUMMARY | 2016-11-22 21:01 | External Medical Summary ---
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 Diastolic Heart F, Acute Assessment Acute myocardial infarction, 410.92 Active unspecified site, subsequent episode of care Medications Medication Code Code Instructions Start End Date Status Dosage System Date Benicar [facility] 77807-98 40 MG Orally 1/2 tablet 10-03 [place] [address]-22 25 MG Orally qd 1 tablet Tartrate 18-01 [place] [address]-35 10 MEQ Orally qd 3 tablet 57-01 [place] [address]-12 300 MG Orally 1/2 tablet 30-30 Once a day Vitamin D NDC 0 PO qd 1 Cap Tylenol NDC 61781-25 325 MG Orally 1 tablet as 96-60 prn needed Glucosamine NDC 31926-20 Orally qd 1 cap [place]ondroitin 031 [place] [address]-55 200 MG Orally 1 tablet 33-06 [place] [address]-39 3 MG Orally Once 1 tablet at 12-08 a day [place] [address]-37 Orally qd 1 tab [address] [place] [address]-80 20 MG Orally 1 capsule 20-31 Once a day Aleve NDC 40096-39 220 MG Orally 1 tablet as 00-25 [place] [address]-69 56253-8.1 1 drop into 24-10 UNIT/ML-% affected eye [place] [address]-79 250-50 MCG/DOSE 1 puff 96-00 Inhalation Twice a day Bumex NDC 0 not defined Aspirin [facility] 07328-63 81 MG Orally 1 tablet 27-26 [place] [address]-69 Orally Once a 1 capsule 54-01 day with a meal Spiriva [facility] 03185-48 18 MCG 1 capsule HandiHaler 75-41 [place] [address]-62 75 MG Orally 1 tablet 03-99 Once a day Terazosin HCl [facility] 52721-17 10 MG Orally 1 capsule 39-01 Once a day Eye Vitamins [facility] 31134-07 Orally qd 1 cap 88-07 Procedures Procedure Coding System Code Date Office Visit, Est Pt., Level 3 CPT-4 42925 August 27, 2014 Vital Signs Date/Time: August 27, 2014 BMI 19.79 Index Weight 134 lbs Height 69 in Cardiac Monitoring Heart Rate 75 /min Oximetry 94 % Blood Pressure Diastolic 76 mm Hg Blood Pressure Systolic 150 mm Hg Results No Known Results Summary Purpose [employer] Submission
--- OUTSIDE RECORDS SUMMARY | 2016-11-22 21:01 | External Medical Summary | CCD ---
:1930 Author Name ARLENE FOWLER Address [address] [place] [address] Unavailable [place], [place] [phone] Care Team Providers Name Role Phone AMY [...] Units Frequency Route Modification Start Date/Time Acetaminophen 800207 5157 MILLIGRAMS NEEDED ORAL 07/18/2014 500MG Oral 14:01 Tablet Prescription Detail 1000 MILLIGRAMS ORAL NEEDED Advair Diskus 250/50 091882 1 EACH TWICE A INHALATION 07/18/2014 0.25MG-0.05MG/1INH DAY 14:01 Inhalation Disk Prescription Detail 1 EACH INHALATION TWICE A DAY Allopurinol 929449 150 MILLIGRAMS DAILY ORAL 07/18/2014 300MG Oral 14:01 Tablet Prescription Detail 150 MILLIGRAMS ORAL DAILY Amiodarone 357471 200 MILLIGRAMS DAILY ORAL 07/18/2014 200MG Oral 14:01 Tablet Prescription Detail 200 MILLIGRAMS ORAL DAILY Aspirin 81MG 926563 81 MILLIGRAMS DAILY ORAL 07/18/2014 Oral Tablet, 14:01 Enteric Coated Prescription Detail 81 MILLIGRAMS ORAL DAILY Clopidogrel 75MG 534626 75 MILLIGRAMS DAILY ORAL 07/18/2014 Oral Tablet 14:01 Prescription Detail 75 MILLIGRAMS ORAL DAILY Glucosamine 9450508 500 MILLIGRAMS DAILY ORAL 07/18/2014 500MG Oral 14:01 Capsule Prescription Detail 500 MILLIGRAMS ORAL DAILY Metoprolol 328517 25 MILLIGRAMS TWICE A ORAL 07/18/2014 Succinate 25MG DAY 14:01 Oral Tablet, Extended Release Prescription Detail 25 MILLIGRAMS ORAL TWICE A DAY Ocuvite PreserVision 30610974038 1 EACH DAILY ORAL 07/18/2014 113MG-0.4FO-5091HR-2 14:01 Oral Tablet Prescription Detail 1 EACH ORAL DAILY Polysporin 343976 1 EACH NEEDED TOPICAL 07/18/2014 500U/GM-18826Q/GM APPLICATION 14:01 Topical application Ointment Prescription Detail 1 EACH TOPICAL APPLICATION NEEDED Spiriva 18MCG 694048 18 MCG DAILY INHALATION 07/18/2014 Inhalation 14:01 Capsule Prescription Detail 18 MCG INHALATION DAILY Medications Administered During Visit Unknown or Not Available. Encounters Encounter Diagnosis Diagnosis Code Start Date Abnormal findings on diagnostic R938 12/23/2015 imaging of other specified body structures Social History Smoking Status Code Start Date End Date Former smoker 8094718 Patient Decision Aids Unknown or Not Available. Discharge Instructions You were admitted to [facility] on 12/23/2015 08:43 with a principal diagnosis of Abnormal findings on diagnostic imaging of body structu You were discharged from [facility] on 12/23/2015 08:43 Should you have any questions prior to discharge, please contact a member of your healthcare team. If you have left the hospital and have any questions, please contact your primary care physician. Chief Complaint and Reason For Visit Chief Complaint Date of Onset CT CHEST W CONTR Function Status Unknown or Not Available. Plan of Care Unknown or Not Available. Referral/Transition of Care Unknown or Not Available.
--- OUTSIDE RECORDS SUMMARY | 2016-11-22 21:01 | External Medical Summary | Summary of Care ---
:1930 Author Name Kay Maria M.D. 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 Medications Name Dates Details Advair [...] Planned Encounters Appointment; Provider: Maynor Maria On 27-May-2014 13:30 Instructions Instructions not documented Encounters Appointment; Maynor Maria On 21-May-2014 Encounter Diagnosis: Problem not documented 10:30 Appointment; Maynor Maria On 25-Dec-2013 Encounter Diagnosis: Problem not documented 10:45 Appointment; Maynor Maria On 23-Oct-2013 Encounter Diagnosis: Problem not documented 13:00 Appointment; Maynor Maria On Encounter Diagnosis: Problem not documented 13:15 Appointment; Maynor Maria On 10-Jul-2013 Encounter Diagnosis: Problem not documented 15:30
--- OUTSIDE RECORDS SUMMARY | 2016-11-22 21:01 | External Medical Summary | Summary of Care ---
:1930 Author Name Kay Maria M.D. Address [address] [place], [place] [phone] Care Team Providers Name Role Phone Kay [...] not documented Encounters Appointment; Maynor Maria On 23-Jun-2014 Encounter Diagnosis: [...]
--- OUTSIDE RECORDS SUMMARY | 2016-11-22 21:01 | External Medical Summary ---
:1930 Author Organization 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 341139311834297 systolic (congestive) and diastolic (congestive) heart failure Problem CHF, Combined 428.41 Active 006425369316360 Systolic & Diastolic Heart F, Acute Problem Hypertension 401.9 Active 30134100 Problem Other long term care pharmacist Z79.899 Active 475920354 (current) drug therapy 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 Problem Presence of Z95.5 Active 109317498 coronary angioplasty implant and graft 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
[2016-11-22] MEDS: NS 1,000 ML IV SCH (21:33)
[2016-11-22] MEDS ORDERED: ASPIRIN 81 MG CHEWABLE TABLET PO ONE (21:46)
[2016-11-22] MEDS: MORPHINE SULFATE 4mg INJECTION IVP PRN ×2 (21:56→23:40)
[2016-11-22 22:01] VITALS: BMI 28.6
--- NOTE | 2016-11-22 22:29 | History & Physical Report ---
<Tonio Solano E - Last Filed: 11/22/16 22:23> History of Present Illness Date: 11/22/16 Chief complaint: Right hip fracture HPI: Mr Reyes is a an 86 year old male who presents for direct admit from [place] after suffering a right intertrochanteric hip fracture. He was apparently ambulating to the clinic in [place] when he suffered a mechanical fall on his right hip from a standing height. X rays performed at their facility revealed the fracture as mentioned above. He was subsequently sent in transfer to [facility] for definitive orthopedic care. He has been admitted to the Internal Medicine hospitalist service. Upon arrival, he states his pain in his hip was controlled, and had no specific concerns. Of note, approximately 1 hour after arrival this evening, he developed chest discomfort. He has as known history of CAD and stent. He takes ASA, Plavix and a BB chronically. A blood pressure at the time of the chest discomfort was reportedly in the 70s mmHg systolic. An EKG has been requested, along with stat labs and a fluid bolus. After speaking again with the nurse at approximately 10: 20, his BP is improved with IVF and his chest pain is resolved with IV morphine. Please note: This patient encounter has been performed this evening via the use of telemedicine technology Review of Systems All systems PM: 10-point ROS was reviewed, no additional remarkable complaints except PFSH Patient Stated Medical History Hearing Loss Yes: Wears bilateral hearing aides Macular Degeneration Yes Myocardial Infarction Yes: 2013 Asthma Yes: when he was younger Chronic Obstructive Pulmonary Yes Disease (COPD) Other Yes: frequency Clinic Medical History Anxiety (Acute Medical) Asthma (Acute Medical) Balance disorder (Acute Medical) Carpal tunnel syndrome (Acute Medical) Emphysema/COPD (Acute Medical) Heart attack (Acute Medical) History of basal cell cancer (Acute Medical) Macular degeneration (Acute Medical) Prostate CA (Acute Medical) Rheumatoid arthritis (Acute Medical) Tremor, unspecified (Acute Medical) Surgical History: Appendectomy 1968, Back Surgery 1999, Shoulder Surgery 2006, Heart Attack 2013, Broken Ribs 2016, Radiation 1997, - Social History Smoking status: Former smoker Medications Home Medications Medication Instructions Recorded Confirmed Type Advair 250-50 Diskus 1 puff DAILY #0 07/30/10 11/22/16 History Adriano/Vit B12/Folic Acid/Vit B6 1 tab PO DAILY #0 07/30/10 History [Folic Acid-Vit B6-Vit B12 Tab] Esomeprazole [NEXIUM 20 mg Capsule] 20 mg PO DAILY #0 07/30/10 11/22/16 History Fish Oil/[place]-3 Fatty Acids (Fish 1 cap PO DAILY #0 07/30/10 History Oil 1,000 Mg Capsule) Glucosamine Hcl/Chondr Greco A Na 1 tab PO BID #0 07/30/10 11/22/16 History (Glucosamin/Chondrot Tb) Magnesium Oxide [Magnesium] 500 mg PO DAILY #0 07/30/10 11/22/16 History Naproxen 500 mg PO PRN #0 07/30/10 History Olmesartan/Hydrochlorothiazide 1 tab PO DAILY #0 07/30/10 History (Benicar Hct 40-25 Mg Tablet) Potassium Chloride [Klor-Con 10] 10 meq PO DAILY #0 07/30/10 11/22/16 History Terazosin HCl 10 mg PO DAILY #0 07/30/10 11/22/16 History VISAVITE 1 tab PO DAILY #0 07/30/10 11/22/16 History Vitamin E 400 unit PO DAILY #0 07/30/10 History hydroCHLOROthiazide 25 mg PO DAILY #0 07/30/10 History [Hydrochlorothiazide] Lasix (Furosemide) 40 mg tablet 40 mg PO DAILY 30 Days tab 08/29/16 11/22/16 History [place] 10 mg-acetaminophen 325 mg 1 tab PO PRN 30 Days tab 08/29/16 History tablet Plavix (clopidogrel) 75 mg tablet 75 mg PO DAILY 90 Days tab 08/29/16 11/22/16 History Spiriva with HandiHaler 18 meq INH DAILY 30 Days #30 08/29/16 History (tiotropium bromide) 18 mcg capsule with inhalation device Zyloprim (Allopurinol) 300 mg 300 mg PO DAILY tab 08/29/16 11/22/16 History tablet aspirin 81 mg chewable tablet 81 mg PO DAILY PRN tab 08/29/16 11/22/16 History calcium cmb tab PO 08/29/16 History no.[id number] 120 mg-1,000 unit-10 mg tablet coenzyme Q10 10 mg capsule 10 mg PO DAILY cap 08/29/16 11/22/16 History cyanocobalamin (vit B-12) 1,000 1,000 mcg PO DAILY tab 08/29/16 11/22/16 History mcg tablet ferrous sulfate 325 mg (65 mg 325 mg PO DAILY 90 Days tab 08/29/16 11/22/16 History iron) tablet magnesium 250 mg tablet 250 mg PO BID 08/29/16 11/22/16 History metoprolol tartrate 25 mg tablet 25 mg PO DAILY 90 Days tab 08/29/16 11/22/16 History potassium chloride ER 10 mEq 10 meq PO DAILY 30 Days #90 08/29/16 11/22/16 History tablet,extended release terazosin 10 mg capsule 10 mg PO DAILY 90 Days cap 08/29/16 11/22/16 History Allergies Allergy/AdvReac Type Severity Reaction Status Date / Time Penicillins Allergy Severe BLACKED OUT Verified 07/30/10 13:30 Exam Height/Weight/BMI: Height 1.75 m Weight 88.1 kg Body Mass Index 28.6 Comments: Please note: This exam was performed shortly after arrival at approximately 21: 00 - Constitutional Present: no acute distress - Routine HEENT Exam Head: Present: normocephalic, atraumatic - Routine Respiratory Exam Present: CTA bilaterally. Absent: accessory muscle use, dyspnea, rales, respiratory distress, rhonchi, wheezes - Routine Cardiovascular Exam Present: RRR, S1, S2, no murmur - Routine Abdominal Exam Present: soft, normoactive bowel sounds, non distended, non tender - Routine Extremities Exam Absent: edema - Routine Neurological Exam Present: alert. Absent: motor deficit Assessment and Plan (1) Closed right hip fracture Current visit: Yes Status: Acute (2) Chest pain Current visit: Yes Status: Acute DVT Prophylaxis: SCD's Assessment and Plan: 1. Mechanical fall with subsequent acute right intertrochanteric hip fracture- POA 2. Development of chest pain shortly after admit 3. Known history of CAD 4. HTN 5. Questionable history of diastolic CHF 6. Probably dementia, unspecified PLAN Patient will be placed under full admission status to the surgical floor. Consult has been requested to the orthopedic service. Prior to entertaining surgery, however, his cardiac status and risk must be further assessed. Orders include stat baseline labs, an EKG, troponin and IVF. At the time of this dictation, his chest discomfort is clinically improved. That being said, will need to follow up on labs, trend troponins, and consider further cardiac risk stratification in the morning. He will be monitored on telemetry. His home medications have been reconciled. Plan to continue BB in this perioperative period provided his blood pressure tolerates. DVT ppx: SCDs have been ordered. Hospital Course Summary Disclaimer: The visit summary below is not to be considered part of the above Progress Note. <Ana Dahl - Last Filed: 11/23/16 11:30> History of Present Illness Date: 11/23/16 Exam Vital Signs: Temperature 98.6 F 11/23/16 08:26 Pulse Rate 79 11/23/16 08:26 Respiratory Rate 16 11/23/16 10:20 Blood Pressure 123/61 11/23/16 08:26 Pulse Oximetry 92 11/23/16 08:26 Height/Weight/BMI: Height 1.75 m Weight 88.4 kg Body Mass Index 28.6 Results - Labs CBC & Chem 7: 11/23/16 04:08 11/23/16 04:08 Assessment and Plan (1) Closed right hip fracture Problem details: Right intertrochanteric fracture, closed Current visit: Yes Status: Acute (2) Chest pain Current visit: Yes Status: Acute Resuscitation Status: Full Code Assessment and Plan: Dr. Solano's note reviewed. Mr. Reyes interviewed and examined. His provided supplemental history. CC: Fall/right hip pain HPI: Mr. Reyes is an 86-year-old male with chronic balance problems and macular degeneration. He fell getting out of his car at home yesterday and had immediate pain in his right hip. He was unable to stand. He denies other injuries, head injury, or loss of consciousness. He's unsure if he struck his chest in the fall. EMS was summoned and he presented to [facility] in [place] were x-rays demonstrated right intertrochanteric hip fracture. He subsequently was transferred to [facility] for orthopedic care. Shortly after arrival the patient developed generalized pressure like pain in his left chest with drop in blood pressure to 74/46. He denied associated radiation, nausea/vomiting, change in chronic dyspnea. He had a brief episode of diaphoresis and felt cold. Pain lasted for about 1 hour and resolved spontaneously and or with morphine. There's been no recurrence and cardiac enzymes have been unremarkable with EKG last night and this morning demonstrating old changes only. Patient indicated he is not interested in further cardiac workup at this time. PH/SH/FH: agree with that recorded above with additions of carpal tunnel syndrome surgery, ORIF left humerus, history gout, radiation for prostate cancer , degenerative joint disease-RA self-diagnosis and not being treated. Family history: father- stroke, mother- old age, brother- melanoma Social history: Remote history of cigarette use, chews tobacco with 1 tin lasting for weeks; 1-2 alcoholic drinks daily (Scotch), no illicit drugs PCP-Dr. Emmett Faust, alternate decision maker-patient's Alyson, CODE STATUS full ROS: 10 point review completed with patient currently describing chronic visual loss due to macular degeneration requiring injections every 3 months (under the care of Dr. Roberson), hearing loss with hearing aids, poor balance requiring use of a walker, chronic dyspnea and home use of oxygen at night as needed, chronic constipation, chronic urinary incontinence, a bad right knee which gives away and for which he uses a brace, and poor appetite with 30 pound weight loss over the past 1-2 years. Remainder of ROS was negative. Patient reports recent rib fractures are no longer causing pain and that he typically doesn't have chest pain. EXAM: General-elderly male, hard of hearing, alert, fluent speech HEENT-PERRL, EOMI without nystagmus, conjunctiva clear, sclera anicteric, conjugate gaze, facial structures symmetric, oropharynx clear, neck supple and without adenopathy Lungs-respirations nonlabored, decreased airflow throughout, anterior lung spence clear Cardiac-regular rhythm, S1-S2; no chest wall tenderness on palpation over the anterior and lateral ribs Abd-soft, nontender, diminished bowel sounds Ext-without edema Skin-without wounds or generalized rash; some bruising on the forearms Musculoskeletal-minimal shortening right leg relative to the left, degenerative changes small joints of the hands Neuro-cranial nerves 3-12 intact, sensation intact to light touch 4 extremities , wiggles toes symmetrically, plantarflexion left foot normal, floor covering installer normal as are shoulder shrugs bilaterally Psych-calm, cooperative DATA: Laboratory data reviewed-leukocytosis on presentation with improvement to 11.6 this morning, mild macrocytic anemia with hemoglobin 9.3. INR 1.06, platelet function-Plavix assay 192-nonresponder, creatinine 0.9, electrolytes unremarkable, liver enzymes unremarkable. Troponin< 0.0123 EKGs 2 with old anteroseptal and possible old inferior UT, low voltage, sinus rhythm-no acute changes. Pelvis x-ray reviewed by myself demonstrating right intertrochanteric fracture Portable chest x-ray of the chest reviewed by myself-NAD, right midlung atelectasis. A/P: Right intertrochanteric fracture Ambulatory dysfunction with falls Coronary artery disease Chest pain Transient hypotension Macrocytic anemia with superimposed blood loss COPD Visual/hearing deficits Depression Unintentional weight loss Malnutrition-total protein 5.5/albumin 3.0 on admission Orthopedic consultation regarding hip fracture-have recommended ORIF which is tender was scheduled since afternoon. Patient is hemodynamically stable after brief episode of hypotension yesterday. Unclear if hypotension occurred in conjunction with left-sided chest pain or not. Chest pain resolved without administration of nitroglycerin so hypotension was not due to nitrates. Cardiac enzymes are unremarkable and EKGs of shown no change. Options of additional cardiac workup were discussed with the patient and his although I think data suggests noncardiac origin for presenting discomfort. I've recommended that he proceed with surgical correction since this is nonelective surgery and patient indicated no interest in additional cardiac testing at this time. Patient is cleared to proceed with surgery. Will initiate bowel regimen for postoperative care as patient describes chronic constipation. Check pre-albumin due to described weight loss. Continue beta piotr and resume aspirin postoperatively. Given nonresponder status will not resume Plavix postop. Continue home regimen for respiratory disease. PT/OT consults. Hospital Course Summary Disclaimer: The visit summary below is not to be considered part of the above Progress Note.
[2016-11-22] MEDS: HYDROCODONE/APAP 5mg/325mg TABLET PO PRN (22:37)
[2016-11-22] MEDS ORDERED: MELATONIN 1 MG TABLET PO ONE (23:00)
[2016-11-23] MEDS: MORPHINE SULFATE 4mg INJECTION IVP PRN ×6 (01:42→14:03)
[2016-11-23] MEDS: NS 1,000 ML IV SCH ×3 (04:21→22:31)
--- NOTE | 2016-11-23 08:16 | Orthopedic Consult Note ---
Orthopedic Consultation HPI - Consultation Info Consult Date: 11/23/16 Attending Physician: Ana Dahl MD Consult Reason: other - HPI Elements right hip Pain: stabbing Onset: sudden Severity: moderate, severe Duration: 12-24 hours How Often Does Pain Occur: constant Aggrevated by: all activity Treatments Tried: rest, pain medications X-ray Findings: intertrochanteric fractur Recommendation: other (intramedullary fixation) Review of Systems - Constitutional Constitutional: Absent: chills, fever(s), night sweats - Cardiovascular Cardiovascular: Present: chest pain (chest pain was reported last night, currently he does not complain of chest pain). Absent: palpitations - Respiratory Respiratory: Absent: cough, dyspnea - Gastrointestinal Gastrointestinal: Absent: abdominal pain, nausea, vomiting - Musculoskeletal Musculoskeletal: Present: as per HPI - Integumentary/Breasts Integumentary: Absent: lesions, rash - Neurological Neurological: Absent: numbness, tingling PFSH Patient Stated Medical History Hearing Loss Yes: Wears bilateral hearing aides Macular Degeneration Yes Myocardial Infarction Yes: 2013 Asthma Yes: when he was younger Chronic Obstructive Pulmonary Yes Disease (COPD) Other Yes: frequency Clinic Medical History Anxiety (Acute Medical) Asthma (Acute Medical) Balance disorder (Acute Medical) Carpal tunnel syndrome (Acute Medical) Emphysema/COPD (Acute Medical) Heart attack (Acute Medical) History of basal cell cancer (Acute Medical) Macular degeneration (Acute Medical) Prostate CA (Acute Medical) Rheumatoid arthritis (Acute Medical) Tremor, unspecified (Acute Medical) Surgical History: Appendectomy 1968, Back Surgery 1999, Shoulder Surgery 2006, Heart Attack 2013, Broken Ribs 2016, Radiation 1997, - Social History Smoking status: Former smoker Medications Home Medications Medication Instructions Recorded Confirmed Type Advair 250-50 Diskus 1 puff DAILY #0 07/30/10 11/22/16 History Adri[place]/Vit B12/Folic Acid/Vit B6 1 tab PO DAILY #0 07/30/10 History [Folic Acid-Vit B6-Vit B12 Tab] Esomeprazole [NEXIUM 20 mg Capsule] 20 mg PO DAILY #0 07/30/10 11/22/16 History Fish Oil/[place]-3 Fatty Acids (Fish 1 cap PO DAILY #0 07/30/10 History Oil 1,000 Mg Capsule) Glucosamine Hcl/Chondr Greco A Na 1 tab PO BID #0 07/30/10 11/22/16 History (Glucosamin/Chondrot Tb) Magnesium Oxide [Magnesium] 500 mg PO DAILY #0 07/30/10 11/22/16 History Naproxen 500 mg PO PRN #0 07/30/10 History Olmesartan/Hydrochlorothiazide 1 tab PO DAILY #0 07/30/10 History (Benicar Hct 40-25 Mg Tablet) Potassium Chloride [Klor-Con 10] 10 meq PO DAILY #0 07/30/10 11/22/16 History Terazosin HCl 10 mg PO DAILY #0 07/30/10 11/22/16 History VISAVITE 1 tab PO DAILY #0 07/30/10 11/22/16 History Vitamin E 400 unit PO DAILY #0 07/30/10 History hydroCHLOROthiazide 25 mg PO DAILY #0 07/30/10 History [Hydrochlorothiazide] Lasix (Furosemide) 40 mg tablet 40 mg PO DAILY 30 Days tab 08/29/16 11/22/16 History [place] 10 mg-acetaminophen 325 mg 1 tab PO PRN 30 Days tab 08/29/16 History tablet Plavix (clopidogrel) 75 mg tablet 75 mg PO DAILY 90 Days tab 08/29/16 11/22/16 History Spiriva with HandiHaler 18 meq INH DAILY 30 Days #30 08/29/16 History (tiotropium bromide) 18 mcg capsule with inhalation device Zyloprim (Allopurinol) 300 mg 300 mg PO DAILY tab 08/29/16 11/22/16 History tablet aspirin 81 mg chewable tablet 81 mg PO DAILY PRN tab 08/29/16 11/22/16 History calcium cmb tab PO 08/29/16 History no.[id number]-[id number] 120 mg-1,000 unit-10 mg tablet coenzyme Q10 10 mg capsule 10 mg PO DAILY cap 08/29/16 11/22/16 History cyanocobalamin (vit B-12) 1,000 1,000 mcg PO DAILY tab 08/29/16 11/22/16 History mcg tablet ferrous sulfate 325 mg (65 mg 325 mg PO DAILY 90 Days tab 08/29/16 11/22/16 History iron) tablet magnesium 250 mg tablet 250 mg PO BID 08/29/16 11/22/16 History metoprolol tartrate 25 mg tablet 25 mg PO DAILY 90 Days tab 08/29/16 11/22/16 History potassium chloride ER 10 mEq 10 meq PO DAILY 30 Days #90 08/29/16 11/22/16 History tablet,extended release terazosin 10 mg capsule 10 mg PO DAILY 90 Days cap 08/29/16 11/22/16 History Allergies Allergy/AdvReac Type Severity Reaction Status Date / Time Penicillins Allergy Severe BLACKED OUT Verified 07/30/10 13:30 Orthopedic Exam Vital signs: Temperature 98.9 F 11/23/16 01:30 Pulse Rate 80 11/23/16 05:01 Respiratory Rate 18 11/23/16 01:30 Blood Pressure 145/82 H 11/23/16 01:30 Pulse Oximetry 91 11/23/16 01:30 - Constitutional General Appearance: Present: no acute distress, well developed, well nourished - Respiratory Exam Present: non-labored - Cardiovascular Exam Present: pedal pulses intact - Extremities Exam Present: edema - Integumentary Exam Present: pink, warm, dry - Neurological Exam Present: intact to light touch, no deficits - Psychiatric Exam Present: alert, normal affect - Labs Result Diagrams: 11/23/16 04:08 11/23/16 04:08 Abnormal lab results 11/22/16 11/22/16 11/23/16 Range/Units 22:31 22:31 04:08 WBC 17.4 H (4.5-11.0) T/MM3 RBC 3.06 L (4.50-5.90) M/MM3 Hgb 10.1 L (13.5-17.5) GM/DL Hct 31.1 L (41-53) % MCV 101.6 H (80-100) UM3 RDW Std Deviation 50.8 H (36.9-50.2) FL Neutrophils % (Manual) 84.0 H (33-66) % Lymphocytes % (Manual) 6.0 L (23-45) % Neutrophils # (Manual) 14.6 H (1.8-7.7) T/MM3 Lymphocytes # (Manual) (1-4.8) T/MM3 Monocytes # (Manual) 1.4 H (0-0.8) T/MM3 Chloride 109 H 108 H (98-107) MEQ/L Glucose 137 H 146 H (75-110) MG/DL AST 16 L (17-59) U/L Total Protein 5.5 L (6.3-8.2) G/DL Albumin 3.0 L (3.5-5.0) G/DL 11/23/16 Range/Units 04:08 WBC 11.6 H (4.5-11.0) T/MM3 RBC 2.81 L (4.50-5.90) M/MM3 Hgb 9.3 L (13.5-17.5) GM/DL Hct 28.6 L (41-53) % MCV 101.8 H (80-100) UM3 RDW Std Deviation 50.5 H (36.9-50.2) FL Neutrophils % (Manual) 91.0 H (33-66) % Lymphocytes % (Manual) 7.0 L (23-45) % Neutrophils # (Manual) 10.6 H (1.8-7.7) T/MM3 Lymphocytes # (Manual) 0.8 L (1-4.8) T/MM3 Monocytes # (Manual) (0-0.8) T/MM3 Chloride (98-107) MEQ/L Glucose (75-110) MG/DL AST (17-59) U/L Total Protein (6.3-8.2) G/DL Albumin (3.5-5.0) G/DL H & H 11/22/16 11/23/16 Range/Units 22:31 04:08 Hgb 10.1 L 9.3 L (13.5-17.5) GM/DL Hct 31.1 L 28.6 L (41-53) % Coagulation 11/23/16 Range/Units 04:08 INR 1.06 (0.99-1.21) Impression and Recommendation (1) Closed intertrochanteric fracture of right hip Current visit: Yes Qualifiers: Encounter type: initial encounter Fracture alignment: displaced Qualified Code(s): S72.141A - Displaced intertrochanteric fracture of right femur, initial encounter for closed fracture Status: Acute Discussed the injury and the treatment option. I recommended supplemental medullary fixation once medical clearance is obtained. I discussed with him and his that due to his Plavix intake he will likely bleed more during surgery but this should not prevent us from proceeding with fixation of his hip as soon as he is medically cleared. I reviewed the postoperative course and expected outcomes. Hospital Course Summary Disclaimer: The visit summary below is not to be considered part of the above Progress Note.
[2016-11-23] MEDS: PANTOPRAZOLE 40 MG TABLET PO SCH (08:45)
--- NOTE | 2016-11-23 08:46 | XRay Report ---
Indication: right hip fx PROCEDURE: XR pelvis 1-2V: Encounter: Initial Comparison: None Findings: Intertrochanteric right femoral fracture with mild to moderate displacement. No additional acute fracture or dislocation seen. Degenerative changes in the spine and hips. Bony demineralization. Impression: Closed posttraumatic intertrochanteric right femoral neck fracture. .
[2016-11-23] MEDS: TIOTROPIUM 18mcg/cap HANDIHALER ORAL INH SCH (09:51)
--- NOTE | 2016-11-23 10:56 | XRay Report ---
Indication: RIB FRACTURE PROCEDURE: XR chest 1V: Encounter: Initial Comparison: None Findings: Linear atelectasis in the right midlung. Lung spence are otherwise clear. No pleural effusion or pneumothorax. Heart size and mediastinal contours are within normal limits allowing for the rotation present Suture anchors in the left humeral head. No definite right rib fracture seen. Impression: No acute cardiopulmonary disease. .
[2016-11-23] MEDS ORDERED: CLINDAMYCIN PB 900 MG/50 ML BAG IV SCH (12:00)
[2016-11-23] MEDS ORDERED: BUPIVACAINE 0.25% (2.5mg/ml) PF 30ml INJECTION ONE (13:42)
[2016-11-23] MEDS ORDERED: LIDOCAINE 1% (10mg/ml) 30ml SDV INJ ONE (13:42)
[2016-11-23] MEDS ORDERED: LR 1,000 ML IV SCH (14:45)
--- NOTE | 2016-11-23 14:51 | Anesthesia Preoperative Report ---
Anesthesia Preoperative Record - Date and Time Date: 11/23/16 Preoperative Diagnosis: Right hip fx Proposed Procedure: Right Gamma Nail NPO Since Date: 11/22/16 NPO Since Time: 23:00 Allergies/Adverse Reactions: Allergies Allergy/AdvReac Type Severity Reaction Status Date / Time Penicillins Allergy Severe BLACKED OUT Verified 11/23/16 14:27 - Vital Signs Vital Signs: Temperature 99.9 F 11/23/16 14:30 Pulse Rate 78 11/23/16 14:30 Respiratory Rate 20 11/23/16 14:30 Blood Pressure 138/65 11/23/16 14:30 Pulse Oximetry 90 11/23/16 14:30 Height and Weight: Height 5 ft 9 in Weight 88.4 kg Body Mass Index 28.6 - Medications Inpatient Medications: Current Medications Acetaminophen (Tylenol) 325 - 650 mg PO Q5H PRN PRN Reason: Discomfort Hydrocodone Bitart/Acetaminophen ([place] 5/325) 1 tab PO Q6H PRN PRN Reason: Pain Last Admin: 11/22/16 22:37 Dose: 1 tab Albuterol Sulfate (Proventil Neb (0.083%)) 5 mg AEROSOL Q2H PRN PRN Reason: Shortness of air/wheezing Allopurinol (Zyloprim) 300 mg PO DAILY [facility] Aspirin (Asa) 81 mg PO DAILY [facility] Cyanocobalamin (Vit. B-12) 1,000 mcg PO DAILY [facility] Sodium Chloride (Normal Saline) 1,000 mls @ 75 mls/hr IV .[id number] [facility] Last Infusion: 11/23/16 14:24 Dose: 0 mls/hr Clindamycin Phosphate (Cleocin Premix) 900 mg in 50 mls @ 50 mls/hr IV PREOP [facility] Lactated Ringer's (Lactated Ringers) 1,000 mls @ 50 mls/hr IV .Q20H [facility] Last Admin: 11/23/16 14:43 Dose: 50 mls/hr Influenza Virus Vaccine (Fluzone Hd Vac) 0.5 ml IM .ONCE ONE Stop: 11/24/16 09:01 Metoprolol Tartrate (Lopressor) 25 mg PO WB [facility] Last Admin: 11/23/16 08:45 Dose: Not Given Morphine Sulfate (Morphine Sulfate Inj) 1 - 2 mg IVP Q2H PRN PRN Reason: Pain Last Admin: 11/23/16 14:03 Dose: 2 mg Ondansetron HCl (Zofran) 4 mg IVP Q6H PRN PRN Reason: Nausea &/or vomiting Pantoprazole Sodium (Protonix Tab) 40 mg PO ACB [facility] Last Admin: 11/23/16 08:45 Dose: Not Given Fluticasone/Salmeterol (Advair Diskus) 1 puff ORAL INH RTQD [facility] Last Admin: 11/23/16 09:53 Dose: 1 puff Tiotropium [place] (Spiriva) 1 cap ORAL INH DAILY [facility] Last Admin: 11/23/16 09:51 Dose: 1 cap Home Medications: Home Medications Medication Instructions Recorded Confirmed Type Advair 250-50 Diskus 1 puff DAILY #0 07/30/10 11/22/16 History [place]/Vit B12/Folic Acid/Vit B6 1 tab PO DAILY #0 07/30/10 History [Folic Acid-Vit B6-Vit B12 Tab] Esomeprazole [NEXIUM 20 mg Capsule] 20 mg PO DAILY #0 07/30/10 11/22/16 History Glucosamine Hcl/Chondr Greco A Na 1 tab PO BID #0 07/30/10 11/22/16 History (Glucosamin/Chondrot Tb) Magnesium Oxide [Magnesium] 500 mg PO DAILY #0 07/30/10 11/22/16 History Potassium Chloride [Klor-Con 10] 10 meq PO DAILY #0 07/30/10 11/22/16 History Terazosin HCl 10 mg PO DAILY #0 07/30/10 11/22/16 History VISAVITE 1 tab PO DAILY #0 07/30/10 11/22/16 History Vitamin E 400 unit PO DAILY #0 07/30/10 History hydroCHLOROthiazide 25 mg PO DAILY #0 07/30/10 History [Hydrochlorothiazide] Lasix (Furosemide) 40 mg tablet 40 mg PO DAILY 30 Days tab 08/29/16 11/22/16 History [place] 10 mg-acetaminophen 325 mg 1 tab PO PRN 30 Days tab 08/29/16 History tablet Plavix (clopidogrel) 75 mg tablet 75 mg PO DAILY 90 Days tab 08/29/16 11/22/16 History Spiriva with HandiHaler 18 meq INH DAILY 30 Days #30 08/29/16 History (tiotropium bromide) 18 mcg capsule with inhalation device Zyloprim (Allopurinol) 300 mg 300 mg PO DAILY tab 08/29/16 11/22/16 History tablet aspirin 81 mg chewable tablet 81 mg PO DAILY PRN tab 08/29/16 11/22/16 History calcium cmb tab PO 08/29/16 History no.0-T3-N-5-AT-Q99-aloe 120 mg-1,000 unit-10 mg tablet coenzyme Q10 10 mg capsule 10 mg PO DAILY cap 08/29/16 11/22/16 History cyanocobalamin (vit B-12) 1,000 1,000 mcg PO DAILY tab 08/29/16 11/22/16 History mcg tablet ferrous sulfate 325 mg (65 mg 325 mg PO DAILY 90 Days tab 08/29/16 11/22/16 History iron) tablet magnesium 250 mg tablet 250 mg PO BID 08/29/16 11/22/16 History metoprolol tartrate 25 mg tablet 25 mg PO DAILY 90 Days tab 08/29/16 11/22/16 History potassium chloride ER 10 mEq 10 meq PO DAILY 30 Days #90 08/29/16 11/22/16 History tablet,extended release terazosin 10 mg capsule 10 mg PO DAILY 90 Days cap 08/29/16 11/22/16 History Is Patient on Beta Dhaval?: No - Medical History Respiratory: Reports: Asthma, Chronic Obstructive Pulmonary Disease (COPD) DENIES: Bronchitis, Dyspnea, Orthopnea, Pulmonary Embolism, Pneumonia, Upper Respiratory Infection, Pulmonary Edema, Sleep Apnea, Tuberculosis, Other Cardiovascular: Reports: Abnormal EKG, Angina (chespt pain yesterday in ER.), Coronary Artery Disease, Hypertension (stent x 2 2012), High Cholesterol, Myocardial Infarction (2012) DENIES: Arrhythmia, Congestive Heart Failure, Heart Murmur, Hypotension, Rheumatic Fever, Valvular Heart Disease, Other Gastrointestional: Reports: Gastroesophageal Reflux Disease (nexium) Neuro/Musculoskeletal: Denies: HX.MS.OSAR, Back Problems, Cerebrovascular Accident, Depression, Headaches, Loss of Consciousness, Muscle Weakness, Neuromuscular Disorder, Paralysis, Paresthesia, Syncope, Seizures, Other Renal/Endocrine: DENIES: Diabetes Mellitus Type 1, Diabetes Mellitus Type 2, Renal Failure, Dialysis, Thyroid Disease, Weight Loss, Weight Gain, Other Other History: DENIES: Anesthesia Reactions, Now, Blood Transfusions, Chemotherapy , Cancer, Hemophilia, Malignant Hyperthermia, Sickle Cell Disease, Other - Surgical History HEENT Surgeries: Reports: 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), Eye Surgery (cataracts,shots in eyes [id number] for Macular degeneration), Tonsillectomy Cardiac Surgeries/Treatments: Reports: Cardiac Catheterization (2 stents placed in 2012) Respiratory Surgery/Treatments: Reports: Oxygen Administration (wears 2L at home as needed) GI Surgery/Treatments: Reports: Appendectomy Surgery/Treatment: REPORT: Other (Radiation treatment for prostate cancer 1997) Musculoskeletal Surgery/Tx: Reports: Shoulder Arthroscopy Reproductive Surgery/Treatment: Reports: Vasectomy Anesthesia Reactions: None Hx Family Anesthesia Reaction: No History of Motion Sickness: No - Social History Smoking Status: Former smoker Hx Chewing Tobacco Use: No Second Hand Exposure: No Substance Use Type: does not use Alcohol Intake Frequency: 0-2 drinks per day (scotch) - Pertinent Findings Laboratory: CBC and BMP 11/23/16 04:08 11/23/16 04:08 BMP 11/22/16 11/23/16 22:31 04:08 Sodium 143 142 Potassium 4.8 4.5 Chloride 109 H 108 H Carbon Dioxide 25 28 BUN 16.0 18.0 Creatinine 0.9 0.9 Glucose 137 H 146 H Calcium 10.1 10.0 Cardiac Enzymes 11/22/16 11/23/16 11/23/16 Range/Units 22:31 04:08 09:58 Troponin I < 0.012 < 0.012 < 0.012 (0-0.12) ng/ml Liver Function 11/23/16 Range/Units 04:08 Total Bilirubin 0.80 (0.20-1.30) MG/DL AST 16 L (17-59) U/L ALT 35 (21-72) U/L Alkaline Phosphatase 65 (38-126) U/L Albumin 3.0 L (3.5-5.0) G/DL EKG: Sinus Rhythm - Physical Exam Respiratory Exam: Present: lungs clear, bilateral breath sounds equal Cardiovascular Exam: Present: regular rate and rhythm, no murmur - Airway Assessment Mallampati Score: III TMD: 3 Fingerbreadths Neck Extension: fair Overall Assessment: may be difficult mask vent, may be difficult intubation - ASA ASA Score: 3 - Plan Anesthesia: General TIVA - Discussion Discussion: Discussed risks/options/alternatives of anesthesia and questions answered. Patient consents. Nursing pain assessment noted. Present for Discussion: spouse Attestation Statement: Prior to the delivery of any anesthetic medication, I examined the patient, developed the plan, obtained the patient's consent and discussed the risk and benefits of the procedure with the patient/guardian. - Additional Information Seen by Anesthesia: Yes
[2016-11-23] MEDS ORDERED: KETAMINE 500 MG/10 ML INJECTION ONE (15:09)
[2016-11-23] MEDS ORDERED: PROPOFOL 500 MG/50 ML VIAL IV ONE (15:09)
[2016-11-23] MEDS ORDERED: LIDOCAINE 2% (100mg/5mL) PF 5ml vl ONE (15:09)
[2016-11-23] MEDS ORDERED: MIDAZOLAM 2mg/2ml INJECTION ONE (15:11)
[2016-11-23] MEDS ORDERED: FentaNYL 100 MCG/2 ML INJECTION ONE (15:12)
[2016-11-23] MEDS ORDERED: TRANEXAMIC ACID 1,000mg/10ml INJECTION ONE (15:58)
[2016-11-23] MEDS ORDERED: BUPIV 0.25% 30ml/LIDO 1% 30ml MIXTURE ID ONE (16:17)
[2016-11-23] MEDS ORDERED: TRANEXAMIC ACID TOP ONE (16:19)
[2016-11-23] MEDS ORDERED: NS TOP ONE (16:19)
[2016-11-23] MEDS ORDERED: TRANEXAMIC ACID 1,000mg/10ml INJECTION TOP ONE (16:30)
[2016-11-23] MEDS ORDERED: KETOROLAC 30 MG/ML INJECTION IVP ONE (17:05)
[2016-11-23] MEDS ORDERED: HYDROMORPHONE 2 MG/ML INJECTION IVP PRN (17:05)
--- NOTE | 2016-11-23 17:08 | Operative Note ---
- Procedure Side: right Preoperative Diagnosis: 3-part introchanteric hip Postoperative Diagnosis: Same as preoperative diagnosis. Operation: CM fix of intertrochanteric hip fx Surgeon: Deepika Cardona MD Complications: None. Anesthesia: General TIVA Estimated Blood Loss: See Anesthesia Record. Fluids: Please see Anesthesia Record. Description of Procedure: Mr. Reyes and his right hip were identified and his hospital room bed he was taken back to the operating suite and placed supine on the fracture table general anesthetic was administered. Both feet were placed and well padded traction boots. The right leg was placed into neutral traction the left leg was placed into extension without traction. Fluoroscopic imaging confirmed the fracture was well reduced with traction. The right lower joint was then prepped and draped in the normal sterile fashion. Timeout was performed. A 3 cm incision was made lateral and superior to the greater trochanter. The proximal femur was opened over a guidepin the long guidewire was placed past the fracture site down the femoral diaphysis. I then reamed to a 14.5 mm and measured for a 380 mm nail. I placed the 380 mm gamma nail which was 13 mm in diameter over the guide ruth. I then placed a lag screw into a center center location to the femoral head. It was 110 mm in length. It achieved good bite. I used a compression device to provide compression at the fracture site. Multiple fluoroscopic images were taken to ensure that the nail was in good position. The aiming arm was then removed. I then placed 2 lag bolts in the distal ruth from lateral to medial using perfect southern ute technique. All wounds were thoroughly irrigated and closed in layers. The drapes removed and he was taken out of traction and taken back to the recovery room in the care of anesthesia. He was tolerated the procedure well and there were no complications. I did inject 3 g of TXA at the fracture site.
--- NOTE | 2016-11-23 17:12 | Remote Fluorsocopy Report ---
Indication: FX RT HIP PROCEDURE: RF hip RT 2 view: Encounter: Initial Comparison: Pelvis radiograph dated November 22, 2016 Findings: Six fluoroscopic spot images are submitted for interpretation. Images show open reduction and internal fixation of the right femoral fracture with placement of an intramedullary nail and compression screw. Two distal interlocking screws. Improved alignment of the fracture fragments. Impression: Fluoroscopy as above. Fluoroscopy time is 140.2 seconds. Fluoroscopy dose is 3720 mRad. .
[2016-11-23] MEDS: ALBUTEROL 2.5mg/3ml (0.083%) NEB AEROSOL PRN (17:51)
[2016-11-23] MEDS ORDERED: NOZIN NASAL SWAB NAS ONE (18:06)
[2016-11-23] MEDS: NOZIN NASAL SWAB NAS SCH (18:15)
--- NOTE | 2016-11-23 18:31 | Anesthesia Postoperative Note ---
- Date and Time Date: 11/23/16 Time: 18:25 - Status Patient Participated in Evaluation: Patient Participated in Person Vital Signs: Temperature 96.0 F L 11/23/16 18:00 Pulse Rate 90 11/23/16 18:00 Respiratory Rate 16 11/23/16 18:00 Blood Pressure 133/65 11/23/16 18:00 Pulse Oximetry 90 11/23/16 18:00 Respiratory Function: Airway Patent, Regular Respirations Cardiovascular Function: Regular Pulse Mental Status: Alert and Oriented Pain Intensity: 0 Hydration: IV Infusing Complications During Recover: None Apparent - Follow-Up Instructions Instructions: Per Surgeon
--- NOTE | 2016-11-23 21:53 | Progress Note ---
Progress Note: Patient admitted overnight with right IT fracture after fall at home. Please refer to my addendum to the admission history and physical for medical clearance. To the operating room today for stabilization.
[2016-11-23] MEDS: CLINDAMYCIN PB 900 MG/50 ML BAG IV SCH (22:30)
[2016-11-23] MEDS: ENOXAPARIN 40 MG/0.4 ML INJECTION SQ SCH (22:31)
[2016-11-23] MEDS: HYDROCODONE/APAP 5mg/325mg TABLET PO PRN (22:32)
[2016-11-23] MEDS ORDERED: MELATONIN 1 MG TABLET PO ONE (23:00)
[2016-11-24] MEDS: NOZIN NASAL SWAB NAS SCH ×3 (02:30→19:55)
[2016-11-24] MEDS: CLINDAMYCIN PB 900 MG/50 ML BAG IV SCH ×2 (04:41→10:44)
[2016-11-24] MEDS: HYDROCODONE/APAP 5mg/325mg TABLET PO PRN ×5 (04:51→18:19)
[2016-11-24] MEDS: ALBUTEROL 2.5mg/3ml (0.083%) NEB AEROSOL PRN (04:57)
[2016-11-24] MEDS: PANTOPRAZOLE 40 MG TABLET PO SCH (06:29)
--- NOTE | 2016-11-24 07:35 | Orthopedic Progress Note ---
Date: Subjective/Severity of Illness: Adrian states his pain is controlled. His O2 demands are up to 6 liters. Output has been 250 in 12 hours. BUN and Creatine this am are stable. Hemoglobin is 7.5. Telemetry is NSR. Serial Troponins are neg so far. Orthopedic Objective PO Vital signs: Temperature 96.8 F 11/24/16 04:00 Pulse Rate 84 11/24/16 06:00 Respiratory Rate 24 11/24/16 04:58 Blood Pressure 155/68 H 11/24/16 05:30 Pulse Oximetry 93 11/24/16 05:38 Height and Weight: Height 5 ft 9 in Weight 194 lb 14.218 oz Body Mass Index 28.6 - Constitutional General Appearance: Present: alert, orientated x3, no acute distress, well developed, well nourished - Respiratory Exam Present: non-labored - Cardiovascular Exam Present: pedal pulses intact Capillary Refill: < 2-3 Seconds - Abdominal Exam Absent: tenderness - Extremities Exam Extremities: Present: pulses intact - Surgical Site Incision: clean, dry, intact, no drainage - Integumentary Exam Present: pink, warm, dry - Neurological Exam Present: intact to light touch, no deficits - Psychiatric Exam Present: alert, normal affect - Labs Result Diagrams: 11/24/16 03:57 11/24/16 03:57 Abnormal lab results 11/24/16 11/24/16 Range/Units 03:57 03:57 WBC 12.5 H (4.5-11.0) T/MM3 RBC 2.31 L (4.50-5.90) M/MM3 Hgb 7.5 L D (13.5-17.5) GM/DL Hct 23.9 L D (41-53) % MCV 103.5 H (80-100) UM3 RDW Std Deviation 51.2 H (36.9-50.2) FL Plt Count 125 L (130-400) T/MM3 Neut % (Auto) 80.2 H (33-66) % Lymph % (Auto) 11.0 L (23-45) % Neut # (Auto) 10.1 H (1.8-7.7) T/MM3 [place] # (Auto) 1.0 H (0-0.8) T/MM3 Chloride 109 H (98-107) MEQ/L Albumin 2.7 L (3.5-5.0) G/DL Prealbumin 16.8 L (17.6-36.0) MG/DL H & H 11/22/16 11/23/16 11/24/16 Range/Units 22:31 04:08 03:57 Hgb 10.1 L 9.3 L 7.5 L D (13.5-17.5) GM/DL Hct 31.1 L 28.6 L 23.9 L D (41-53) % Coagulation 11/23/16 Range/Units 04:08 INR 1.06 (0.99-1.21) Orthopedic Assessment and Plan (1) Closed intertrochanteric fracture of right hip Status: Acute Qualifiers: Encounter type: initial encounter Fracture alignment: displaced Qualified Code(s): S72.141A - Displaced intertrochanteric fracture of right femur, initial encounter for closed fracture Assessment and Plan: Medical management as per hospitalist team PT/OT to mobilize, WBAT Lovenox 40mg SQ Q day for 30 days post op. We will discuss with Dr. Cardona when he would preferr to resume Plavix. continue pain and bowel management. - Anticoagulation Therapy Anticoagulation: Lovenox 40 mg SQ Daily x 30 days from day of surgery Hospital Course Summary Disclaimer: The visit summary below is not to be considered part of the above Progress Note.
[2016-11-24] MEDS: ASPIRIN 81 MG CHEWABLE TABLET PO SCH (08:18)
[2016-11-24] MEDS ORDERED: INFLUENZA VAC. INJ. ADMIN CHARGE INJ ONE (08:21)
[2016-11-24] MEDS: ALLOPURINOL 300 MG TABLET PO SCH (08:35)
[2016-11-24] MEDS: CYANOCOBALAMIN (B-12) 500mcg TABLET PO SCH (08:35)
[2016-11-24] MEDS ORDERED: INFLUENZA VAC High Dose 2017-18 (Fluzone HD*) (>=65yo) 0.5ml IM ONE (09:00)
[2016-11-24] MEDS: MORPHINE SULFATE 4mg INJECTION IVP PRN ×2 (09:07→19:55)
[2016-11-24] MEDS ORDERED: CLOPIDOGREL 75 MG TABLET PO SCH (10:45)
--- NOTE | 2016-11-24 11:27 | Progress Note ---
<Mari Morales Ponce - Last Filed: 11/24/16 11:24> Subjective: I received a phone call from Smooth's nurse this morning stating that he is hypoxic and oxygen requirements have increased to 8 L. He however was maintaining saturations at 95% while working with physical therapy. When I arrived in his room, he was back in bed, and states that he is always short of breath. He also complains of left-sided chest pain, and his adds that he has had chest pain intermittently ever since arriving to the hospital. The pain today feels very similar to what he had yesterday and the day before that. He denies any dizziness or syncope. No diaphoresis or nausea. He has a very mild cough during this visit, but he is not sure if that's new or not. He had a difficult time describing his symptoms. Objective Vital signs: Temperature 98.4 F 11/24/16 07:46 Pulse Rate 86 11/24/16 07:46 Respiratory Rate 24 11/24/16 10:25 Blood Pressure 154/66 H 11/24/16 07:46 Pulse Oximetry 91 11/24/16 10:18 Rhythm: Normal Sinus Rhythm Height/Weight/BMI: Height 1.75 m Weight 89.2 kg Body Mass Index 28.6 - Constitutional Present: no acute distress, well nourished, well developed - Routine HEENT Exam Head: Present: normocephalic Eye: Absent: conjunctival icterus ENT: Present: mucous membranes dry - Routine Respiratory Exam Present: CTA bilaterally, diminished air movement - Routine Cardiovascular Exam Present: RRR, S1, S2 - Routine Abdominal Exam Present: soft, normoactive bowel sounds, non distended, non tender - Routine Exam Comments: [place] to DD - Routine Extremities Exam Present: no edema, pulses intact - Routine Skin Exam Present: intact, dry, warm - Routine Neurological Exam Present: alert - Routine Psychiatric Exam Present: cooperative. Absent: normal affect (flat affect) Results - Labs CBC & Chem 7: 11/24/16 03:57 11/24/16 03:57 Assessment and Plan (1) Closed right hip fracture Problem details: Right intertrochanteric fracture, closed Current visit: Yes Status: Acute (2) Chest pain Current visit: Yes Status: Acute DVT Prophylaxis: Lovenox Resuscitation Status: Full Code Assessment and Plan: A/P: Right intertrochanteric fracture, status post CM fixation on 11/23/16 Ambulatory dysfunction with falls Coronary artery disease, Plavix nonresponder Chest pain Transient hypotension Macrocytic anemia with superimposed blood loss Thrombocytopenia COPD Visual/hearing deficits Depression Unintentional weight loss Malnutrition-total protein 5.5/albumin 3.0 on admission Hypoxia with increased oxygen demands, up to 8 L. Will repeat chest x-ray this morning. He has left-sided chest pain, but this is not acute, nor any different than previously. Cardiac enzymes were negative. Prior EKG did not show any ischemic changes. Further, patient has not been interested in pursuing additional cardiac testing at this time. Acute blood loss anemia: Hemoglobin has dropped nearly 2 g to 7.5. This also could explain his hypoxia. Will give 1 U PRBC along with Lasix 10 mg IV. White blood cell count increased to 12.5, could be reactive, also, platelets dropped to 125. If platelets drop further, we may need to stop Lovenox. BMP is stable. Prealbumin was 16.8. Oliguria - 125 ml over last 6 hours - continue IVF. Uncontrolled postop pain - increase [place] to up to 2 tabs Q4h PRN. Start bladder retraining - hope to DC tomorrow. Hospital Course Summary Disclaimer: The visit summary below is not to be considered part of the above Progress Note. Hospital Course: 11/24/16 11:38 Hypoxia with increased oxygen demands, up to 8 L. Will repeat chest x-ray this morning. He has left-sided chest pain, but this is not acute, nor any different than previously. Cardiac enzymes were negative. Prior EKG did not show any ischemic changes. Further, patient has not been interested in pursuing additional cardiac testing at this time. Acute blood loss anemia: Hemoglobin has dropped nearly 2 g to 7.5. This also could explain his hypoxia. Will give 1 U PRBC along with Lasix 10 mg IV. White blood cell count increased to 12.5, could be reactive, also, platelets dropped to 125. If platelets drop further, we may need to stop Lovenox. BMP is stable. Prealbumin was 16.8. Oliguria - 125 ml over last 6 hours - continue IVF. Uncontrolled postop pain - increase [place] to up to 2 tabs Q4h PRN. Start bladder retraining - hope to DC tomorrow. 11/24/16 11:41 <NabilaAna Greg - Last Filed: 11/24/16 17:51> Objective Vital signs: Temperature 97.8 F 11/24/16 15:33 Pulse Rate 79 11/24/16 16:00 Respiratory Rate 18 11/24/16 15:33 Blood Pressure 147/68 H 11/24/16 15:33 Pulse Oximetry 5 L 11/24/16 15:33 Height/Weight/BMI: Height 1.75 m Weight 89.2 kg Body Mass Index 28.6 Results - Labs CBC & Chem 7: 11/24/16 03:57 11/24/16 03:57 Assessment and Plan (1) Closed right hip fracture Problem details: Right intertrochanteric fracture, closed Current visit: Yes Status: Acute (2) Chest pain Current visit: Yes Status: Acute Assessment and Plan: I have independently evaluated and examined this patient. I reviewed the chart, the patient's history, and the [employer]/PA's documented findings as above. We discussed and formulated the assessment and plan as above with additions as below: Mr. Reyes seen with his at bedside. He reports he's been somewhat short of breath but denied coughing. He indicated that he had chest pain again earlier in it lasted about an hour. He reports at home he keeps "dynamite" in his pocket but didn't request nitroglycerin and didn't feel like he needed it. His reported patient was very anxious this morning and has been confused. Patient was more disoriented today than when evaluated yesterday. Respirations were nonlabored with diminished airflow but breath sounds were clear cardiac rhythm regular abdomen was soft and nontender Chest x-ray reviewed by myself-unremarkable The patient is developed acute hypoxic respiratory failure with mild tachypnea and dyspnea. I did not note evidence of petechial rash today but will continue to monitor for change. No radiographic abnormalities evident. Given onset after hip fracture and concern that he may have fat embolization syndrome which may account for increased confusion. Treatment is symptomatic. No evidence of volume overload. Check DIC panel in the morning although anticipate some abnormalities due to postoperative state. Adequate oxygenation currently on 5 L O2. Blood currently infusing. Discussed with nursing, provide supplemental history. In addition to above diagnoses please add: acute hypoxic respiratory failure Hospital Course Summary Disclaimer: The visit summary below is not to be considered part of the above Progress Note.
--- NOTE | 2016-11-24 11:28 | XRay Report ---
Indication: increased o2 needs PROCEDURE: XR chest 1V: Encounter: Initial Comparison: November 23, 2016 Findings: Right lung atelectasis has improved. No focal consolidative pneumonia no pleural effusion or pneumothorax. Heart size, pulmonary vascularity and mediastinal contours are stable. Posterior diaphragmatic defect. Impression: No focal pneumonia or congestive failure. .
[2016-11-24] MEDS ORDERED: NS FLUSH BAG 500ml IV PRN (11:34)
[2016-11-24] MEDS ORDERED: FUROSEMIDE 20 MG/2 ML INJECTION IVP ONE (11:40)
[2016-11-24] MEDS: NS 1,000 ML IV SCH ×3 (11:52→17:55)
[2016-11-24] MEDS: ENOXAPARIN 40 MG/0.4 ML INJECTION SQ SCH (20:03)
[2016-11-24] MEDS: TIOTROPIUM 18mcg/cap HANDIHALER ORAL INH SCH (20:53)
[2016-11-25] MEDS: HYDROCODONE/APAP 5mg/325mg TABLET PO PRN ×4 (00:16→22:08)
[2016-11-25] MEDS: NOZIN NASAL SWAB NAS SCH ×3 (03:42→18:47)
[2016-11-25] MEDS: PANTOPRAZOLE 40 MG TABLET PO SCH (06:23)
[2016-11-25] MEDS: NS 1,000 ML IV SCH ×4 (08:07→22:55)
[2016-11-25] MEDS: CYANOCOBALAMIN (B-12) 500mcg TABLET PO SCH (08:33)
[2016-11-25] MEDS: ASPIRIN 81 MG CHEWABLE TABLET PO SCH (08:34)
[2016-11-25] MEDS: ALLOPURINOL 300 MG TABLET PO SCH (08:34)
[2016-11-25] MEDS: TIOTROPIUM 18mcg/cap HANDIHALER ORAL INH SCH ×2 (08:36→22:10)
--- NOTE | 2016-11-25 08:38 | Orthopedic Progress Note ---
Date: Subjective/Severity of Illness: Don slept well last night. His pain is manageable if he stays still. He didn' t get to much done with PT yesterday. He got up and developed some chest pain. He was seen by the hospital service. 1 unit of PRBC's were given. His O2 demands have declined. However, his hemiglobin is 7.5 today. He denies present chest pain or shortness of breath, or calf pain. Orthopedic Objective PO Vital signs: Temperature 99.0 F 11/25/16 03:36 Pulse Rate 89 11/25/16 03:36 Respiratory Rate 24 11/25/16 03:36 Blood Pressure 137/52 11/25/16 03:36 Pulse Oximetry 91 11/25/16 03:36 Height and Weight: Height 5 ft 9 in Weight 196 lb 10.437 oz Body Mass Index 28.6 - Constitutional General Appearance: Present: alert, orientated x3, no acute distress, well developed, well nourished - Respiratory Exam Present: non-labored - Cardiovascular Exam Present: pedal pulses intact - Abdominal Exam Absent: tenderness - Extremities Exam Extremities: Present: pulses intact - Surgical Site Incision: clean, dry, intact, no drainage - Integumentary Exam Present: pink, warm, dry - Neurological Exam Present: intact to light touch, no deficits - Psychiatric Exam Present: alert, normal affect - Labs Result Diagrams: 11/25/16 03:55 11/25/16 03:55 Abnormal lab results 11/24/16 11/24/16 11/25/16 Range/Units 11:52 18:59 03:55 WBC 11.6 H (4.5-11.0) T/MM3 RBC 2.30 L (4.50-5.90) M/MM3 Hgb 9.0 L D 7.5 L D (13.5-17.5) GM/DL Hct 23.1 L (41-53) % MCV 100.4 H (80-100) UM3 RDW Std Deviation 52.5 H (36.9-50.2) FL Plt Count 116 L (130-400) T/MM3 Neut % (Auto) 77.3 H (33-66) % Lymph % (Auto) 11.2 L (23-45) % [place] % (Auto) 9.7 H (0-9.0) % Neut # (Auto) 8.9 H (1.8-7.7) T/MM3 [place] # (Auto) 1.1 H (0-0.8) T/MM3 Chloride (98-107) MEQ/L Crossmatch ([facility]) See Detail 11/25/16 Range/Units 03:55 WBC (4.5-11.0) T/MM3 RBC (4.50-5.90) M/MM3 Hgb (13.5-17.5) GM/DL Hct (41-53) % MCV (80-100) UM3 RDW Std Deviation (36.9-50.2) FL Plt Count (130-400) T/MM3 Neut % (Auto) (33-66) % Lymph % (Auto) (23-45) % [place] % (Auto) (0-9.0) % Neut # (Auto) (1.8-7.7) T/MM3 [place] # (Auto) (0-0.8) T/MM3 Chloride 108 H (98-107) MEQ/L Crossmatch ([facility]) H & H 11/22/16 11/23/16 11/24/16 Range/Units 22:31 04:08 03:57 Hgb 10.1 L 9.3 L 7.5 L D (13.5-17.5) GM/DL Hct 31.1 L 28.6 L 23.9 L D (41-53) % 11/24/16 11/25/16 Range/Units 18:59 03:55 Hgb 9.0 L D 7.5 L D (13.5-17.5) GM/DL Hct 23.1 L (41-53) % Coagulation 11/23/16 Range/Units 04:08 INR 1.06 (0.99-1.21) Orthopedic Assessment and Plan (1) Closed intertrochanteric fracture of right hip Status: Acute Qualifiers: Encounter type: initial encounter Fracture alignment: displaced Qualified Code(s): S72.141A - Displaced intertrochanteric fracture of right femur, initial encounter for closed fracture Assessment and Plan: Medical management as per hospitalist team PT/OT to mobilize, WBAT Lovenox 40mg SQ Q day for 30 days post op. Plavix was discussed with hospital team and Dr. Cardona; he is a non responder to Plavix so Lovenox will be used. continue pain and bowel management. - Anticoagulation Therapy Anticoagulation: Lovenox 40 mg SQ Daily x 30 days from day of surgery Hospital Course Summary Disclaimer: The visit summary below is not to be considered part of the above Progress Note. Hospital Course: 11/24/16 11:38 Hypoxia with increased oxygen demands, up to 8 L. Will repeat chest x-ray this morning. He has left-sided chest pain, but this is not acute, nor any different than previously. Cardiac enzymes were negative. Prior EKG did not show any ischemic changes. Further, patient has not been interested in pursuing additional cardiac testing at this time. Acute blood loss anemia: Hemoglobin has dropped nearly 2 g to 7.5. This also could explain his hypoxia. Will give 1 U PRBC along with Lasix 10 mg IV. White blood cell count increased to 12.5, could be reactive, also, platelets dropped to 125. If platelets drop further, we may need to stop Lovenox. BMP is stable. Prealbumin was 16.8. Oliguria - 125 ml over last 6 hours - continue IVF. Uncontrolled postop pain - increase [place] to up to 2 tabs Q4h PRN. Start bladder retraining - hope to DC tomorrow. 11/24/16 11:41
--- NOTE | 2016-11-25 08:46 | Orthopedic Progress Note ---
Date: Subjective/Severity of Illness: Mr Reyes is in good spirits. No pain at rest this AM. Hurts to move. He sit at the edge of the bed yesterday with PT but mobility limited due to low Hgb. Denies feeling lightheaded or dizzy but hasn't been up this am. Orthopedic Objective PO Vital signs: Temperature 99.0 F 11/25/16 03:36 Pulse Rate 89 11/25/16 03:36 Respiratory Rate 24 11/25/16 03:36 Blood Pressure 137/52 11/25/16 03:36 Pulse Oximetry 91 11/25/16 03:36 Height and Weight: Height 5 ft 9 in Weight 196 lb 10.437 oz Body Mass Index 28.6 - Constitutional General Appearance: Present: alert, no acute distress - Respiratory Exam Present: non-labored - Cardiovascular Exam Present: pedal pulses intact - Extremities Exam Extremities: Present: pulses intact - Surgical Site Incision: clean, dry, intact, dressing intact, no drainage - Integumentary Exam Present: pink, warm, dry - Neurological Exam Present: intact to light touch, no deficits - Psychiatric Exam Present: alert, normal affect - Labs Result Diagrams: 11/25/16 03:55 11/25/16 03:55 Abnormal lab results 11/24/16 11/24/16 11/25/16 Range/Units 11:52 18:59 03:55 WBC 11.6 H (4.5-11.0) T/MM3 RBC 2.30 L (4.50-5.90) M/MM3 Hgb 9.0 L D 7.5 L D (13.5-17.5) GM/DL Hct 23.1 L (41-53) % MCV 100.4 H (80-100) UM3 RDW Std Deviation 52.5 H (36.9-50.2) FL Plt Count 116 L (130-400) T/MM3 Neut % (Auto) 77.3 H (33-66) % Lymph % (Auto) 11.2 L (23-45) % [place] % (Auto) 9.7 H (0-9.0) % Neut # (Auto) 8.9 H (1.8-7.7) T/MM3 [place] # (Auto) 1.1 H (0-0.8) T/MM3 [place] (98-107) MEQ/L Crossmatch ([facility]) See Detail 11/25/16 Range/Units 03:55 WBC (4.5-11.0) T/MM3 RBC (4.50-5.90) M/MM3 Hgb (13.5-17.5) GM/DL Hct (41-53) % MCV (80-100) UM3 RDW Std Deviation (36.9-50.2) FL Plt Count (130-400) T/MM3 Neut % (Auto) (33-66) % Lymph % (Auto) (23-45) % [place] % (Auto) (0-9.0) % Neut # (Auto) (1.8-7.7) T/MM3 [place] # (Auto) (0-0.8) T/MM3 Chlor[place] 108 H (98-107) MEQ/L Crossmatch ([facility]) H & H 11/22/16 11/23/16 11/24/16 Range/Units 22:31 04:08 03:57 Hgb 10.1 L 9.3 L 7.5 L D (13.5-17.5) GM/DL Hct 31.1 L 28.6 L 23.9 L D (41-53) % 11/24/16 11/25/16 Range/Units 18:59 03:55 Hgb 9.0 L D 7.5 L D (13.5-17.5) GM/DL Hct 23.1 L (41-53) % Coagulation 11/23/16 Range/Units 04:08 INR 1.06 (0.99-1.21) Orthopedic Assessment and Plan (1) Closed intertrochanteric fracture of right hip Status: Acute Qualifiers: Encounter type: initial encounter Fracture alignment: displaced Qualified Code(s): S72.141A - Displaced intertrochanteric fracture of right femur, initial encounter for closed fracture Assessment and Plan: Medical management as per hospitalist team PT/OT to mobilize, WBAT Lovenox 40mg SQ Q day for 30 days post op. Plavix was discussed with hospital team and Dr. Cardona; he is a non responder to Plavix so Lovenox will be used. continue pain and bowel management. - Anticoagulation Therapy Anticoagulation: Lovenox 40 mg SQ Daily x 30 days from day of surgery Hospital Course Summary Disclaimer: The visit summary below is not to be considered part of the above Progress Note. Hospital Course: 11/24/16 11:38 Hypoxia with increased oxygen demands, up to 8 L. Will repeat chest x-ray this morning. He has left-sided chest pain, but this is not acute, nor any different than previously. Cardiac enzymes were negative. Prior EKG did not show any ischemic changes. Further, patient has not been interested in pursuing additional cardiac testing at this time. Acute blood loss anemia: Hemoglobin has dropped nearly 2 g to 7.5. This also could explain his hypoxia. Will give 1 U PRBC along with Lasix 10 mg IV. White blood cell count increased to 12.5, could be reactive, also, platelets dropped to 125. If platelets drop further, we may need to stop Lovenox. BMP is stable. Prealbumin was 16.8. Oliguria - 125 ml over last 6 hours - continue IVF. Uncontrolled postop pain - increase [place] to up to 2 tabs Q4h PRN. Start bladder retraining - hope to DC tomorrow. 11/24/16 11:41
[2016-11-25] MEDS: POLYETHYL GLYCOL 3350 17gm PACKET PO SCH (10:52)
--- NOTE | 2016-11-25 10:57 | Progress Note ---
<Luisa Tee - Last Filed: 11/25/16 10:46> Subjective: Patient is seen sitting in his chair with family present. He has no complaints at present. He states his pain is controlled. He's not had any further chest pain today. He states he's not had a bowel movement since she's been to the hospital. Appetite is okay. Has been sleeping well. Objective Vital signs: Temperature 97.9 F 11/25/16 08:52 Pulse Rate 77 11/25/16 08:52 Respiratory Rate 16 11/25/16 08:53 Blood Pressure 130/65 11/25/16 08:52 Pulse Oximetry 95 11/25/16 08:52 Height/Weight/BMI: Height 1.75 m Weight 89.2 kg Body Mass Index 28.6 - Constitutional Present: no acute distress, well nourished, well developed - Routine HEENT Exam Head: Present: normocephalic, atraumatic - Routine Respiratory Exam Present: CTA bilaterally. Absent: wheezes - Routine Cardiovascular Exam Present: RRR, S1, S2. Absent: murmur - Routine Abdominal Exam Present: soft. Absent: tenderness - Routine Extremities Exam Present: no edema - Routine Neurological Exam Present: alert, moving all extremities, normal speech - Routine Psychiatric Exam Present: normal affect, cooperative Results - Labs CBC & Chem 7: 11/25/16 03:55 11/25/16 03:55 Assessment and Plan (1) Closed right hip fracture Problem details: Right intertrochanteric fracture, closed Current visit: Yes Status: Acute (2) Chest pain Current visit: Yes Status: Acute Assessment and Plan: A/P: Right intertrochanteric fracture, status post CM fixation on 11/23/16 Acute hypoxic respiratory failure Ambulatory dysfunction with falls Coronary artery disease, Plavix nonresponder Chest pain Transient hypotension Macrocytic anemia with superimposed blood loss Thrombocytopenia COPD Visual/hearing deficits Depression Unintentional weight loss Malnutrition-total protein 5.5/albumin 3.0 on admission Oxygen demand down to 5 L. Will continue to wean as able. Home O2 was initially 3-4 L. His hemoglobin remains at 7.5 despite 1 unit of PRBCs given yesterday. His hemoglobin was up to 9.0 post transfusion last evening. Hold off on further transfusion as hypoxia has improved and he has no further chest pain. Will repeat another CBC this afternoon. White blood cell count is stable. Platelets continue to drop down to 116 today. Continue to monitor. Doing okay with bladder retraining, should be able to DC [place] later today. Milk of mag now and start daily MiraLAX and senna for constipation/bowel motivation. Hospital Course Summary Disclaimer: The visit summary below is not to be considered part of the above Progress Note. Hospital Course: 11/24/16 Hypoxia with increased oxygen demands, up to 8 L. Will repeat chest x-ray this morning. He has left-sided chest pain, but this is not acute, nor any different than previously. Cardiac enzymes were negative. Prior EKG did not show any ischemic changes. Further, patient has not been interested in pursuing additional cardiac testing at this time. Acute blood loss anemia: Hemoglobin has dropped nearly 2 g to 7.5. This also could explain his hypoxia. Will give 1 U PRBC along with Lasix 10 mg IV. White blood cell count increased to 12.5, could be reactive, also, platelets dropped to 125. If platelets drop further, we may need to stop Lovenox. BMP is stable. Prealbumin was 16.8. Oliguria - 125 ml over last 6 hours - continue IVF. Uncontrolled postop pain - increase [place] to up to 2 tabs Q4h PRN. Start bladder retraining - hope to DC tomorrow. 11/25/16 Oxygen demand down to 5 L. Will continue to wean as able. Home O2 was initially 3-4 L. His hemoglobin remains at 7.5 despite 1 unit of PRBCs given yesterday. His hemoglobin was up to 9.0 post transfusion last evening. Hold off on further transfusion as hypoxia has improved and he has no further chest pain. Will repeat another CBC this afternoon. White blood cell count is stable. Platelets continue to drop down to 116 today. Continue to monitor. Doing okay with bladder retraining, should be able to DC [place] later today. Milk of mag now and start daily MiraLAX and senna for constipation/bowel motivation. <Ana Dahl - Last Filed: 11/25/16 20:22> Objective Vital signs: Temperature 98.8 F 11/25/16 16:58 Pulse Rate 83 11/25/16 16:58 Respiratory Rate 18 11/25/16 16:58 Blood Pressure 138/71 10/13/17 16:58 Pulse Oximetry 94 11/25/16 16:58 Height/Weight/BMI: Height 1.75 m Weight 89.2 kg Body Mass Index 28.6 Results - Labs CBC & Chem 7: 11/25/16 18:41 11/25/16 03:55 Assessment and Plan (1) Closed right hip fracture Problem details: Right intertrochanteric fracture, closed Current visit: Yes Status: Acute (2) Chest pain Current visit: Yes Status: Acute DVT Prophylaxis: Lovenox Resuscitation Status: Full Code Assessment and Plan: I have independently evaluated and examined this patient. I reviewed the chart, the patient's history, and the [employer]/PA's documented findings as above. We discussed and formulated the assessment and plan as above with additions as below: Mr. Reyes reports significant pain with transferring to the chair-he was not able to take any steps but merely pivot transfer. He denies dyspnea and oxygen has been decreased. This afternoon he had an episode of chest pain requiring sublingual nitroglycerin without relief ultimately requiring morphine for relief. Patient told nurses that the pain was not comparable to past cardiac pain. His reported less confusion and agitation today. Smooth was alert today and did not appear distressed while seated in a chair Respirations were nonlabored with decreased airflow but no wheezing Regular cardiac rhythm, S1-S2, soft systolic murmur Continue supportive care; case management evaluating skilled services in [place] [facility] but will not be available until next week. Hospital Course Summary Disclaimer: The visit summary below is not to be considered part of the above Progress Note.
[2016-11-25] MEDS: NITROGLYCERIN 0.4 MG SUBLINGUAL TABLET SL PRN ×3 (13:58→14:09)
[2016-11-25] MEDS: MORPHINE SULFATE 4mg INJECTION IVP PRN (14:20)
[2016-11-25] MEDS ORDERED: NS 100 ML ONE (20:18)
[2016-11-25] MEDS ORDERED: IOHEXOL 300mg/ml 100ml INJECTION ONE (20:18)
[2016-11-25] MEDS ORDERED: SALINE FLUSH 10ml SYRINGE ONE (20:18)
[2016-11-25] MEDS ORDERED: IOHEXOL 350mg/ml 100ml INJECTION ONE (20:20)
[2016-11-25] MEDS ORDERED: SENNOSIDES 8.6 MG TABLET PO SCH (21:00)
[2016-11-25] MEDS: ENOXAPARIN 40 MG/0.4 ML INJECTION SQ SCH (22:08)
[2016-11-25] MEDS: SENNOSIDES 8.6 MG TABLET PO SCH (22:08)
[2016-11-25] MEDS ORDERED: ENOXAPARIN 60 MG/0.6 ML INJECTION SQ ONE (22:37)
[2016-11-26] MEDS: MORPHINE SULFATE 4mg INJECTION IVP PRN ×3 (01:14→13:16)
[2016-11-26] MEDS: ALBUTEROL 2.5mg/3ml (0.083%) NEB AEROSOL PRN (02:26)
[2016-11-26] MEDS: NOZIN NASAL SWAB NAS SCH ×3 (02:30→17:19)
[2016-11-26] MEDS: NS 1,000 ML IV SCH ×4 (05:40→23:41)
[2016-11-26] MEDS: PANTOPRAZOLE 40 MG TABLET PO SCH (06:14)
[2016-11-26] MEDS: CYANOCOBALAMIN (B-12) 500mcg TABLET PO SCH (09:31)
[2016-11-26] MEDS: POLYETHYL GLYCOL 3350 17gm PACKET PO SCH ×3 (09:31→20:25)
[2016-11-26] MEDS: ALLOPURINOL 300 MG TABLET PO SCH (09:32)
[2016-11-26] MEDS: ASPIRIN 81 MG CHEWABLE TABLET PO SCH (09:32)
[2016-11-26] MEDS: SENNOSIDES 8.6 MG TABLET PO SCH ×2 (09:32→20:25)
[2016-11-26] MEDS ORDERED: ENOXAPARIN 100 MG/ML INJECTION SQ SCH (10:00)
--- NOTE | 2016-11-26 10:42 | Orthopedic Progress Note ---
Date: Subjective/Severity of Illness: Surya had a CTA completed last night that showed a PE. Hospitalist service has anticoagulated him appropriately. I have spoken directly with Dr. Dahl who agrees he may mobilize. Surya voiced concern that our services were not communicating well; I found Dr. Dahl, we spoke about his care and saw Surya together to make sure his concern was addressed. He presently denies chest pain or worsening shortness of breath. Orthopedic Objective PO Vital signs: Temperature 97.8 F 11/26/16 07:33 Pulse Rate 80 11/26/16 08:35 Respiratory Rate 16 11/26/16 08:26 Blood Pressure 177/73 H 11/26/16 07:33 Pulse Oximetry 97 11/26/16 07:33 Height and Weight: Height 5 ft 9 in Weight 208 lb 1.862 oz Body Mass Index 28.6 - Constitutional General Appearance: Present: alert, no acute distress - Respiratory Exam Present: non-labored - Cardiovascular Exam Present: pedal pulses intact - Abdominal Exam Absent: tenderness - Extremities Exam Extremities: Present: pulses intact - Surgical Site Incision: clean, dry, intact, dressing intact, no drainage - Integumentary Exam Present: pink, warm, dry - Neurological Exam Present: intact to light touch, no deficits - Psychiatric Exam Present: alert, normal affect - Labs Result Diagrams: 11/25/16 18:41 11/25/16 03:55 Abnormal lab results 11/25/16 11/25/16 Range/Units 14:36 18:41 WBC 12.5 H 11.1 H (4.5-11.0) T/MM3 RBC 2.33 L 2.22 L (4.50-5.90) M/MM3 Hgb 7.7 L 7.3 L (13.5-17.5) GM/DL Hct 23.7 L 22.7 L (41-53) % MCV 101.7 H 102.3 H (80-100) UM3 RDW Std Deviation 52.7 H 53.1 H (36.9-50.2) FL Plt Count 124 L 119 L (130-400) T/MM3 Neut % (Auto) 79.3 H (33-66) % Lymph % (Auto) 8.5 L (23-45) % [place] % (Auto) 9.7 H (0-9.0) % Neut # (Auto) 9.9 H (1.8-7.7) T/MM3 [place] # (Auto) 1.2 H (0-0.8) T/MM3 Fibrinogen 507 H (175-450) MG/DL D-Dimer 384 H (0-230) NG/ML H & H 11/22/16 11/23/16 11/24/16 Range/Units 22:31 04:08 03:57 Hgb 10.1 L 9.3 L 7.5 L D (13.5-17.5) GM/DL Hct 31.1 L 28.6 L 23.9 L D (41-53) % 11/24/16 11/25/16 11/25/16 Range/Units 18:59 03:55 14:36 Hgb 9.0 L D 7.5 L D 7.7 L (13.5-17.5) GM/DL Hct 23.1 L 23.7 L (41-53) % 11/25/16 Range/Units 18:41 Hgb 7.3 L (13.5-17.5) GM/DL Hct 22.7 L (41-53) % Coagulation 11/23/16 11/25/16 Range/Units 04:08 18:41 INR 1.06 1.08 (0.99-1.21) Orthopedic Assessment and Plan (1) Closed intertrochanteric fracture of right hip Status: Acute Qualifiers: Encounter type: initial encounter Fracture alignment: displaced Qualified Code(s): S72.141A - Displaced intertrochanteric fracture of right femur, initial encounter for closed fracture Assessment and Plan: Medical management as per hospitalist team PT/OT to mobilize, WBAT Lovenox dosed as per hospitalist recommendation for his PE. continue pain and bowel management. - Anticoagulation Therapy Anticoagulation: Lovenox 40 mg SQ Daily x 30 days from day of surgery Hospital Course Summary Disclaimer: The visit summary below is not to be considered part of the above Progress Note. Hospital Course: 11/24/16 Hypoxia with increased oxygen demands, up to 8 L. Will repeat chest x-ray this morning. He has left-sided chest pain, but this is not acute, nor any different than previously. Cardiac enzymes were negative. Prior EKG did not show any ischemic changes. Further, patient has not been interested in pursuing additional cardiac testing at this time. Acute blood loss anemia: Hemoglobin has dropped nearly 2 g to 7.5. This also could explain his hypoxia. Will give 1 U PRBC along with Lasix 10 mg IV. White blood cell count increased to 12.5, could be reactive, also, platelets dropped to 125. If platelets drop further, we may need to stop Lovenox. BMP is stable. Prealbumin was 16.8. Oliguria - 125 ml over last 6 hours - continue IVF. Uncontrolled postop pain - increase [place] to up to 2 tabs Q4h PRN. Start bladder retraining - hope to DC tomorrow. 11/25/16 Oxygen demand down to 5 L. Will continue to wean as able. Home O2 was initially 3-4 L. His hemoglobin remains at 7.5 despite 1 unit of PRBCs given yesterday. His hemoglobin was up to 9.0 post transfusion last evening. Hold off on further transfusion as hypoxia has improved and he has no further chest pain. Will repeat another CBC this afternoon. White blood cell count is stable. Platelets continue to drop down to 116 today. Continue to monitor. Doing okay with bladder retraining, should be able to DC [place] later today. Milk of mag now and start daily MiraLAX and senna for constipation/bowel motivation.
[2016-11-26] MEDS: HYDROCODONE/APAP 5mg/325mg TABLET PO PRN (10:50)
[2016-11-26] MEDS ORDERED: FUROSEMIDE 20 MG/2 ML INJECTION IVP ONE (11:41)
[2016-11-26] MEDS ORDERED: NS FLUSH BAG 500ml IV PRN (11:41)
--- NOTE | 2016-11-26 11:44 | Progress Note ---
<Mari Morales - Last Filed: 11/26/16 11:38> Subjective: Mr. Reyes was resting in bed. His breathing feels about the same. He has a little bit of chest pain, and we discussed that this could possibly be related to PE. His appetite has been poor, but his adds that it's been poor prior to hospitalization. He denies any nausea or abdominal pain. He has not had a bowel movement yet. We discussed removing the catheter, and a voiced an understanding. Inquired about activity, and I anticipate that physical therapy will be working with him again today. Since he is anticoagulated there is no contraindication to activity. Alyson endorses some memory issues since surgery, for example, he couldn't understand why it took her so long to get here this morning after he called, as he forgot that they live in [place]. Objective Vital signs: Temperature 95.8 F L 11/26/16 11:35 Pulse Rate 78 11/26/16 11:35 Respiratory Rate 18 11/26/16 11:35 Blood Pressure 140/66 H 11/26/16 11:35 Pulse Oximetry 96 11/26/16 11:35 Rhythm: Normal Sinus Rhythm Height/Weight/BMI: Height 1.75 m Weight 94.4 kg Body Mass Index 28.6 - Constitutional Present: no acute distress, well nourished, well developed - Routine HEENT Exam Eye: Absent: conjunctival icterus ENT: Present: oropharynx clear - Routine Respiratory Exam Present: decreased breath sounds, CTA bilaterally - Routine Cardiovascular Exam Present: RRR, S1, S2 - Routine Abdominal Exam Present: soft, normoactive bowel sounds, non distended, non tender - Routine Extremities Exam Present: edema (left arm, with swelling to the elbow/dependent areas) - Routine Skin Exam Present: intact, dry, pallor, warm - Routine Neurological Exam Present: alert, CN II-XII intact, normal speech. Absent: facial asymmetry - Routine Psychiatric Exam Present: cooperative. Absent: normal affect (flat affect) Results - Labs CBC & Chem 7: 11/26/16 10:37 11/25/16 03:55 Assessment and Plan (1) Closed right hip fracture Problem details: Right intertrochanteric fracture, closed Current visit: Yes Status: Acute (2) Chest pain Current visit: Yes Status: Acute DVT Prophylaxis: Lovenox Resuscitation Status: Full Code Assessment and Plan: Assessment Right intertrochanteric fracture, status post CM fixation on 11/23/16 PE with Acute hypoxic respiratory failure - full dose Lovenox started 11/25/16 Ambulatory dysfunction with falls Coronary artery disease, Plavix nonresponder Chest pain Transient hypotension Macrocytic anemia with superimposed blood loss, S/P PRBC infusion Thrombocytopenia COPD/emphysema Visual/hearing deficits Depression Unintentional weight loss Malnutrition-total protein 5.5/albumin 3.0 on admission PLAN PE - therapeutic Lovenox was initiated last night, and Dr. Dahl is planning to have discussion on long-term anticoagulation options with the patient. I called therapy to let them know that there are no contraindications to continuing his activity. Anemia - hemoglobin is 7.4. Will give additional unit of packed red cells today + Lasix. [place] catheter - bladder retraining was not done yesterday. Will restart retraining today and discontinue catheter this evening, monitoring for retention. Leukocytosis has resolved. Platelets are mildly low, 123. Will need to follow since he's on Lovenox. Constipation - increase MiraLAX to BID; add Dulcolax supp. PRN. Discharge plans - they wish to return to [facility] for therapy. Discussed with JJ Moe, Dr. Dahl, PT, and nursing staff. Hospital Course Summary Disclaimer: The visit summary below is not to be considered part of the above Progress Note. Hospital Course: 11/24/16 Hypoxia with increased oxygen demands, up to 8 L. Will repeat chest x-ray this morning. He has left-sided chest pain, but this is not acute, nor any different than previously. Cardiac enzymes were negative. Prior EKG did not show any ischemic changes. Further, patient has not been interested in pursuing additional cardiac testing at this time. Acute blood loss anemia: Hemoglobin has dropped nearly 2 g to 7.5. This also could explain his hypoxia. Will give 1 U PRBC along with Lasix 10 mg IV. White blood cell count increased to 12.5, could be reactive, also, platelets dropped to 125. If platelets drop further, we may need to stop Lovenox. BMP is stable. Prealbumin was 16.8. Oliguria - 125 ml over last 6 hours - continue IVF. Uncontrolled postop pain - increase [place] to up to 2 tabs Q4h PRN. Start bladder retraining - hope to DC tomorrow. 11/25/16 Oxygen demand down to 5 L. Will continue to wean as able. Home O2 was initially 3-4 L. His hemoglobin remains at 7.5 despite 1 unit of PRBCs given yesterday. His hemoglobin was up to 9.0 post transfusion last evening. Hold off on further transfusion as hypoxia has improved and he has no further chest pain. Will repeat another CBC this afternoon. White blood cell count is stable. Platelets continue to drop down to 116 today. Continue to monitor. Doing okay with bladder retraining, should be able to DC [place] later today. Milk of mag now and start daily MiraLAX and senna for constipation/bowel motivation. 11/26/16 PE - therapeutic Lovenox was initiated last night, and Dr. Dahl is planning to have discussion on long-term anticoagulation options with the patient. I called therapy to let them know that there are no contraindications to continuing his activity. Anemia - hemoglobin is 7.4. Will give additional unit of packed red cells today. [place] catheter - bladder retraining was not done yesterday. Will restart retraining today and discontinue catheter this evening, monitoring for retention. Leukocytosis has resolved. Platelets are mildly low, 123. Will need to follow since he's on Lovenox. Constipation - increase MiraLAX to BID; add Dulcolax supp. PRN. Discharge plans - they wish to return to [facility] for therapy. <Ana Dahl - Last Filed: 11/26/16 13:22> Objective Vital signs: Temperature 95.8 F L 11/26/16 11:35 Pulse Rate 78 11/26/16 11:35 Respiratory Rate 18 11/26/16 11:35 Blood Pressure 140/66 H 11/26/16 11:35 Pulse Oximetry 96 11/26/16 11:35 Height/Weight/BMI: Height 1.75 m Weight 94.4 kg Body Mass Index 28.6 Results - Labs CBC & Chem 7: 11/26/16 10:37 11/25/16 03:55 Assessment and Plan (1) Closed right hip fracture Problem details: Right intertrochanteric fracture, closed Current visit: Yes Status: Acute (2) Chest pain Current visit: Yes Status: Acute (3) Pulmonary emboli Current visit: Yes Status: Acute Assessment and Plan: I have independently evaluated and examined this patient. I reviewed the chart, the patient's history, and the SUPERVISING BAILIFF/PA's documented findings as above. We discussed and formulated the assessment and plan as above with additions as below: Mr. Reyes describe some mild chest discomfort with deep inspiration; nursing reported chest pain yesterday which did not respond with morphine at which time patient said it wasn't the same position usual cardiac pain. CTA was subsequently obtained demonstrating bilateral PEs primarily on the right side, COPD, and miniscule pleural effusions. There were several other minor findings which will need further clarification when Dr. Myers over reads films. Patient has had hypoxia for several days so timing of event is uncertain, had previously denied pleuritic pain. Complains of significant pain in his leg and unable to tolerate weightbearing, pivot transfers to chair. Somewhat hard of hearing, NAD at rest. Respirations nonlabored, diminished airflow throughout Abdomen benign, trace edema bilateral ankles CTA reviewed by myself-right lower lobe PE present, I can't appreciate left lung field PE nor do I appreciate any atelectasis/infiltrate in the right apex or the questionable hypodensities within the bones described. Will review further with Dr. Myers. Hemoglobin down slightly. Options for management of PE reviewed with patient, , and son/daughter-in- law at bedside. After review of current medications we've opted to initiate Xarelto and discontinue Lovenox. Xarelto will be initiated at 15 mg twice a day this evening for standard 21 day course going through 12/17 after which does will reduce to 20 mg once daily for anticipated 3-6 months. Encouraged patient to move as tolerated. Given excess pain, obtain venous Dopplers although would not preclude activity since anticoagulation initiated. One unit of blood to be given. Pain control inadequate-switch to Percocet 7.5 and scheduled 2 tablets every 6 hours with OxyIR for breakthrough pain. Discussed with nursing and orthopedics. Hospital Course Summary Disclaimer: The visit summary below is not to be considered part of the above Progress Note.
[2016-11-26] MEDS ORDERED: BISACODYL 10 MG SUPPOSITORY RECTALLY PRN (11:55)
[2016-11-26] MEDS ORDERED: Oxycodone *IR* 5 MG TABLET PO PRN (13:15)
[2016-11-26] MEDS: OXYCODONE/APAP 7.5 MG/325 MG TABLET PO SCH ×2 (13:22→19:07)
[2016-11-26] MEDS: RIVAROXABAN 15 MG TABLET PO SCH (17:19)
[2016-11-26] MEDS: TIOTROPIUM 18mcg/cap HANDIHALER ORAL INH SCH ×3 (18:59→21:04)
[2016-11-27] MEDS: OXYCODONE/APAP 7.5 MG/325 MG TABLET PO SCH ×4 (01:09→21:25)
[2016-11-27] MEDS: NOZIN NASAL SWAB NAS SCH ×3 (03:49→18:24)
[2016-11-27] MEDS: PANTOPRAZOLE 40 MG TABLET PO SCH (06:12)
[2016-11-27] MEDS ORDERED: FUROSEMIDE 20 MG/2 ML INJECTION IVP ONE (10:12)
--- NOTE | 2016-11-27 10:21 | Progress Note ---
<Olinda Mclean - Last Filed: 11/27/16 10:18> Subjective: Mr. Reyes is seen today in follow up. Is overall not feeling well, but does not endorse specific c/o. is concerned with possible DVT- requests sono results- chart reviewed, does not appear sono is done yet. (Pt. is on full anticoagulation for known PE) . He reports no difficulties voiding since [place] DC'd yesterday. Chart is reviewed for collateral information. Objective Vital signs: Temperature 97.9 F 11/27/16 07:19 Pulse Rate 78 11/27/16 08:00 Respiratory Rate 16 11/27/16 07:19 Blood Pressure 189/78 H 11/27/16 07:19 Pulse Oximetry 95 11/27/16 07:19 Rhythm: Normal Sinus Rhythm Height/Weight/BMI: Height 1.75 m Weight 96.3 kg Body Mass Index 28.6 - Constitutional Present: mild distress, well nourished, well developed, cooperative - Routine HEENT Exam Head: Present: normocephalic, atraumatic Eye: Present: EOMI, PERRL, normal accommodation ENT: Present: mucous membranes moist - Routine Respiratory Exam Present: dyspnea (Mild at rest. Shallow respirations. Faint crackles in bases. ) , decreased breath sounds, crackles - Routine Cardiovascular Exam Present: RRR, S1, S2, murmur (+JVD, jugular pulsation concerning for VHD. ) - Routine Abdominal Exam Present: soft, non distended, non tender - Routine Extremities Exam Present: edema (2-3+ LE edema bilaterally. ), pulses intact Comments: Pitting edema toe to hips - Routine Musculoskeletal Exam Musculoskeletal: Present: limited range of motion, surgical scar. Absent: normal strength, no tenderness - Routine Skin Exam Present: intact, dry, warm - Routine Neurological Exam Present: alert, moving all extremities, normal speech - Routine Psychiatric Exam Present: cooperative (Irritable) Results - Labs CBC & Chem 7: 11/27/16 04:02 11/27/16 04:02 - Impressions Venous doppler still pending. Assessment and Plan (1) Closed right hip fracture Problem details: Right intertrochanteric fracture, closed Current visit: Yes Status: Acute (2) Chest pain Current visit: Yes Status: Acute (3) Pulmonary emboli Current visit: Yes Status: Acute DVT Prophylaxis: Xarelto GI Prophylaxis: Protonix Resuscitation Status: Full Code Assessment and Plan: Impression: Right intertrochanteric fracture, status post CM fixation on 11/23/16 Ambulatory dysfunction with falls Coronary artery disease, Plavix nonresponder Chest pain Transient hypotension Macrocytic anemia with superimposed blood loss Thrombocytopenia COPD Visual/hearing deficits Depression Unintentional weight loss Malnutrition-total protein 5.5/albumin 3.0 on admission Fluid overload, suspected CHF Right pulmonary embolus Hx of BPH Plan: 11/27/16 *Pt. appears to be fluid overloaded. Suspected CHF/VHD. Assess echo in AM. Give Lasix 40mg IV x 1 now with KCL. Resume home Lasix, but increase to BID now until fluid is stabilized. Hold HCTZ given advanced age. Resume home medication for BPH. Stop IVF, monitor PO intake. *Anemia, acute on chronic Likely some degree of hemodilution. Stop IVF. Diurese. Repeat CBC this afternoon. May need to transfuse if remains low. *CP/Transient Hypotension-resolved. *PE- Xarelto x 3-6 months. Monitor for bleeding. Venous doppler pending. Stop SCDs. *Weakness/Falls/Hip Fx- PT/OT. DC planning-?SNU when stable. High risk due to severity of illness, frailty, high risk meds including IV diuretics, xarelto, pain medications. - Time spent with patient Time with patient PN: 35 minutes Hospital Course Summary Disclaimer: The visit summary below is not to be considered part of the above Progress Note. Hospital Course: Impression: Right intertrochanteric fracture, status post CM fixation on 11/23/16 Ambulatory dysfunction with falls Coronary artery disease, Plavix nonresponder Chest pain Transient hypotension Macrocytic anemia with superimposed blood loss Thrombocytopenia COPD Visual/hearing deficits Depression Unintentional weight loss Malnutrition-total protein 5.5/albumin 3.0 on admission Fluid overload, suspected CHF Right pulmonary embolus Hx of BPH 11/24/16 Hypoxia with increased oxygen demands, up to 8 L. Will repeat chest x-ray this morning. He has left-sided chest pain, but this is not acute, nor any different than previously. Cardiac enzymes were negative. Prior EKG did not show any ischemic changes. Further, patient has not been interested in pursuing additional cardiac testing at this time. Acute blood loss anemia: Hemoglobin has dropped nearly 2 g to 7.5. This also could explain his hypoxia. Will give 1 U PRBC along with Lasix 10 mg IV. White blood cell count increased to 12.5, could be reactive, also, platelets dropped to 125. If platelets drop further, we may need to stop Lovenox. BMP is stable. Prealbumin was 16.8. Oliguria - 125 ml over last 6 hours - continue IVF. Uncontrolled postop pain - increase [place] to up to 2 tabs Q4h PRN. Start bladder retraining - hope to DC tomorrow. 11/25/16 Oxygen demand down to 5 L. Will continue to wean as able. Home O2 was initially 3-4 L. His hemoglobin remains at 7.5 despite 1 unit of PRBCs given yesterday. His hemoglobin was up to 9.0 post transfusion last evening. Hold off on further transfusion as hypoxia has improved and he has no further chest pain. Will repeat another CBC this afternoon. White blood cell count is stable. Platelets continue to drop down to 116 today. Continue to monitor. Doing okay with bladder retraining, should be able to DC [place] later today. Milk of mag now and start daily MiraLAX and senna for constipation/bowel motivation. 11/26/16 PE - therapeutic Lovenox was initiated last night, and Dr. Dahl is planning to have discussion on long-term anticoagulation options with the patient. I called therapy to let them know that there are no contraindications to continuing his activity. Anemia - hemoglobin is 7.4. Will give additional unit of packed red cells today. [place] catheter - bladder retraining was not done yesterday. Will restart retraining today and discontinue catheter this evening, monitoring for retention. Leukocytosis has resolved. Platelets are mildly low, 123. Will need to follow since he's on Lovenox. Constipation - increase MiraLAX to BID; add Dulcolax supp. PRN. Discharge plans - they wish to return to [facility] for therapy. 11/27/16 10:29 *Pt. appears to be fluid overloaded. Suspected CHF/VHD. Assess echo in AM. Give Lasix 40mg IV x 1 now with KCL. Resume home Lasix, but increase to BID now until fluid is stabilized. Hold HCTZ given advanced age. Resume home medication for BPH. Stop IVF, monitor PO intake. *Anemia, acute on chronic Likely some degree of hemodilution. Stop IVF. Diurese. Repeat CBC this afternoon. May need to transfuse if remains low. *CP/Transient Hypotension-resolved. *PE- Xarelto x 3-6 months. Monitor for bleeding. Venous doppler pending. Stop SCDs. *Weakness/Falls/Hip Fx- PT/OT. DC planning-?SNU when stable. <Ana Dahl - Last Filed: 11/27/16 13:44> Objective Vital signs: Temperature 98.1 F 11/27/16 11:41 Pulse Rate 73 11/27/16 11:41 Respiratory Rate 20 11/27/16 11:41 Blood Pressure 149/73 H 11/27/16 11:41 Pulse Oximetry 93 11/27/16 11:41 Height/Weight/BMI: Height 1.75 m Weight 96.3 kg Body Mass Index 28.6 Results - Labs CBC & Chem 7: 11/27/16 04:02 11/27/16 04:02 Assessment and Plan (1) Closed right hip fracture Problem details: Right intertrochanteric fracture, closed Current visit: Yes Status: Acute (2) Chest pain Current visit: Yes Status: Acute (3) Pulmonary emboli Current visit: Yes Status: Acute Assessment and Plan: I have independently evaluated and examined this patient. I reviewed the chart, the patient's history, and the EXPERIMENTAL TECHNICIAN/PA's documented findings as above. We discussed and formulated the assessment and plan as above with additions as below: Mr. Reyes report some dyspnea and ongoing mild pleuritic pain. Has still not had a bowel movement. O2 has been titrated down to 2.5 L. Hip pain ongoing, minimal activity. Slight improvement in pain control with scheduled medications per patient report. NAD, respirations nonlabored at rest Diminished breath sounds but no wheezing at time of my exam. Hemoglobin increased from 7.4-8.0 following one unit of blood yesterday, remains borderline. BNP last chest x-ray in a.m.-no indication of significant volume overload on CTA 11/24 however weight is up and fluids need to be discontinued. As usual provides majority of history. Hospital Course Summary Disclaimer: The visit summary below is not to be considered part of the above Progress Note.
--- NOTE | 2016-11-27 10:27 | CT Scan Report ---
Indication: Hypoxia, Further Evaluation for PE PROCEDURE: CT angio pulm emboli: Encounter: Initial Comparison: Chest x-ray dated November 24, 2016 Technique: Axial CT pulmonary angiographic phase images were performed through the chest after the administration of intravenous contrast. Coronal and Sagittal MIP reconstructed images were created and reviewed. Automated Exposure Control and Iterative Reconstruction dose reducing techniques were utilized. Contrast: Omnipaque 350 80 mL Findings: Pulmonary arteries: Exam is diagnostic to the subsegmental pulmonary arterial level. There is segmental and subsegmental pulmonary embolus in the right middle and lower lobes. Small emboli are also seen in the subsegmental left lower lobe pulmonary artery branches. Other findings: Scattered areas of groundglass opacity and atelectasis. Rounded atelectasis in the right lower lobe. Left basilar atelectasis. No pneumothorax. The central airways are patent. No axillary or mediastinal adenopathy. Large right shoulder joint effusion with multiple calcifications internally. Heart size is enlarged. Trace pericardial effusion. The upper abdomen shows left renal stone but no acute findings. Impression: Bilateral pulmonary emboli. There is a preliminary report by virtual radi[facility]. .
[2016-11-27] MEDS: ALLOPURINOL 300 MG TABLET PO SCH (10:57)
[2016-11-27] MEDS: SENNOSIDES 8.6 MG TABLET PO SCH ×2 (10:58→21:25)
[2016-11-27] MEDS: POLYETHYL GLYCOL 3350 17gm PACKET PO SCH ×3 (10:58→21:27)
[2016-11-27] MEDS: CYANOCOBALAMIN (B-12) 500mcg TABLET PO SCH (10:58)
[2016-11-27] MEDS: ASPIRIN 81 MG CHEWABLE TABLET PO SCH (10:59)
[2016-11-27] MEDS: RIVAROXABAN 15 MG TABLET PO SCH ×2 (11:28→18:23)
[2016-11-27] MEDS: SALINE FLUSH 10ml SYRINGE IV PRN (11:37)
[2016-11-27] MEDS: NS 1,000 ML IV SCH (12:53)
[2016-11-27] MEDS: FERROUS SULFATE 324 MG TABLET PO SCH (15:19)
[2016-11-27] MEDS: TERAZOSIN 5 MG CAPSULE PO SCH (15:19)
[2016-11-27] MEDS ORDERED: FUROSEMIDE 40 MG TABLET PO SCH (17:00)
[2016-11-27] MEDS: TIOTROPIUM 18mcg/cap HANDIHALER ORAL INH SCH (20:55)
[2016-11-28] MEDS: NOZIN NASAL SWAB NAS SCH ×4 (00:50→18:21)
[2016-11-28] MEDS: OXYCODONE/APAP 7.5 MG/325 MG TABLET PO SCH ×2 (02:40→10:30)
[2016-11-28] MEDS: PANTOPRAZOLE 40 MG TABLET PO SCH (06:09)
--- NOTE | 2016-11-28 07:59 | Orthopedic Progress Note ---
Date: Subjective/Severity of Illness: Smooth feels his "perhaps a little better" today. No BM yet. He is passing gas. He was up to a chair yesterday but has not walked. No drainage from the incisions. Orthopedic Objective PO Vital signs: Temperature 98.3 F 11/28/16 07:47 Pulse Rate 74 11/28/16 07:47 Respiratory Rate 18 11/28/16 07:47 Blood Pressure 157/69 H 11/28/16 07:47 Pulse Oximetry 96 11/28/16 07:47 Height and Weight: Height 5 ft 9 in Weight 212 lb 4.882 oz Body Mass Index 28.6 - Constitutional General Appearance: Present: alert, no acute distress - Respiratory Exam Present: non-labored - Cardiovascular Exam Present: pedal pulses intact - Abdominal Exam Absent: tenderness - Extremities Exam Extremities: Present: pulses intact. Absent: calf tenderness - Surgical Site Incision: clean, dry, intact, dressing intact, no drainage - Integumentary Exam Present: pink, warm, dry - Neurological Exam Present: no deficits - Psychiatric Exam Present: alert - Labs Result Diagrams: 11/28/16 05:05 11/28/16 05:05 Abnormal lab results 11/27/16 11/28/16 11/28/16 Range/Units 15:43 05:05 05:05 RBC 2.66 L 2.38 L (4.50-5.90) M/MM3 Hgb 8.6 L 7.6 L D (13.5-17.5) GM/DL Hct 26.1 L 23.9 L (41-53) % MCV 100.4 H (80-100) UM3 RDW Std Deviation 51.7 H 51.4 H (36.9-50.2) FL Neut % (Auto) 69.9 H (33-66) % Lymph % (Auto) 14.8 L (23-45) % [place] % (Auto) 10.9 H (0-9.0) % Eos % (Auto) 4.2 H (0-4) % [place] # (Auto) 0.9 H (0-0.8) T/MM3 Chloride 108 H (98-107) MEQ/L Anion Gap 4 L (5-15) MEQ/L B-Natriuretic Peptide 591 H (0-175) pg/mL Albumin 2.7 L (3.5-5.0) G/DL H & H 11/22/16 11/23/16 11/24/16 Range/Units 22:31 04:08 03:57 Hgb 10.1 L 9.3 L 7.5 L D (13.5-17.5) GM/DL Hct 31.1 L 28.6 L 23.9 L D (41-53) % 11/24/16 11/25/16 11/25/16 Range/Units 18:59 03:55 14:36 Hgb 9.0 L D 7.5 L D 7.7 L (13.5-17.5) GM/DL Hct 23.1 L 23.7 L (41-53) % 11/25/16 11/26/16 11/26/16 Range/Units 18:41 10:37 23:36 Hgb 7.3 L 7.4 L 8.0 L (13.5-17.5) GM/DL Hct 22.7 L 23.3 L (41-53) % 11/27/16 11/27/16 11/28/16 Range/Units 04:02 15:43 05:05 Hgb 7.9 L 8.6 L 7.6 L D (13.5-17.5) GM/DL Hct 24.7 L 26.1 L 23.9 L (41-53) % Coagulation 11/23/16 11/25/16 Range/Units 04:08 18:41 INR 1.06 1.08 (0.99-1.21) Orthopedic Assessment and Plan (1) Closed intertrochanteric fracture of right hip Status: Acute Qualifiers: Encounter type: initial encounter Fracture alignment: displaced Qualified Code(s): S72.141A - Displaced intertrochanteric fracture of right femur, initial encounter for closed fracture Assessment and Plan: Medical management as per hospitalist team. PT/OT to mobilize, WBAT Anticoagulant as per hospitalist recommendation for his PE. Continue pain and bowel management. Encourage mobility. - Anticoagulation Therapy Anticoagulation: other (Per hospitalist recommendations.) Hospital Course Summary Disclaimer: The visit summary below is not to be considered part of the above Progress Note. Hospital Course: Impression: Right intertrochanteric fracture, status post CM fixation on 11/23/16 Ambulatory dysfunction with falls Coronary artery disease, Plavix nonresponder Chest pain Transient hypotension Macrocytic anemia with superimposed blood loss Thrombocytopenia COPD Visual/hearing deficits Depression Unintentional weight loss Malnutrition-total protein 5.5/albumin 3.0 on admission Fluid overload, suspected CHF Right pulmonary embolus Hx of BPH 11/24/16 Hypoxia with increased oxygen demands, up to 8 L. Will repeat chest x-ray this morning. He has left-sided chest pain, but this is not acute, nor any different than previously. Cardiac enzymes were negative. Prior EKG did not show any ischemic changes. Further, patient has not been interested in pursuing additional cardiac testing at this time. Acute blood loss anemia: Hemoglobin has dropped nearly 2 g to 7.5. This also could explain his hypoxia. Will give 1 U PRBC along with Lasix 10 mg IV. White blood cell count increased to 12.5, could be reactive, also, platelets dropped to 125. If platelets drop further, we may need to stop Lovenox. BMP is stable. Prealbumin was 16.8. Oliguria - 125 ml over last 6 hours - continue IVF. Uncontrolled postop pain - increase [place] to up to 2 tabs Q4h PRN. Start bladder retraining - hope to DC tomorrow. 11/25/16 Oxygen demand down to 5 L. Will continue to wean as able. Home O2 was initially 3-4 L. His hemoglobin remains at 7.5 despite 1 unit of PRBCs given yesterday. His hemoglobin was up to 9.0 post transfusion last evening. Hold off on further transfusion as hypoxia has improved and he has no further chest pain. Will repeat another CBC this afternoon. White blood cell count is stable. Platelets continue to drop down to 116 today. Continue to monitor. Doing okay with bladder retraining, should be able to DC [place] later today. Milk of mag now and start daily MiraLAX and senna for constipation/bowel motivation. 11/26/16 PE - therapeutic Lovenox was initiated last night, and Dr. Dahl is planning to have discussion on long-term anticoagulation options with the patient. I called therapy to let them know that there are no contraindications to continuing his activity. Anemia - hemoglobin is 7.4. Will give additional unit of packed red cells today. [place] catheter - bladder retraining was not done yesterday. Will restart retraining today and discontinue catheter this evening, monitoring for retention. Leukocytosis has resolved. Platelets are mildly low, 123. Will need to follow since he's on Lovenox. Constipation - increase MiraLAX to BID; add Dulcolax supp. PRN. Discharge plans - they wish to return to Nichelle @ [facility] for therapy. 11/27/16 10:29 *Pt. appears to be fluid overloaded. Suspected CHF/VHD. Assess echo in AM. Give Lasix 40mg IV x 1 now with KCL. Resume home Lasix, but increase to BID now until fluid is stabilized. Hold HCTZ given advanced age. Resume home medication for BPH. Stop IVF, monitor PO intake. *Anemia, acute on chronic Likely some degree of hemodilution. Stop IVF. Diurese. Repeat CBC this afternoon. May need to transfuse if remains low. *CP/Transient Hypotension-resolved. *PE- Xarelto x 3-6 months. Monitor for bleeding. Venous doppler pending. Stop SCDs. *Weakness/Falls/Hip Fx- PT/OT. DC planning-?SNU when stable.
--- NOTE | 2016-11-28 08:27 | Ultrasound Report ---
Indication: postop pain, PE US venous doppler LE BI: Comparison: None Technique: Real-time, color-flow and spectral Doppler analysis involving the left lower extremity Findings: Patient showed near occlusive DVT in the distal superficial femoral and popliteal veins. Just trickle flow seen in these areas. Some collateral vessels were identified the level of the clot in these superficial femoral vein. Impression: Positive for near occlusive DVT in the distal superficial femoral/popliteal vein. .
--- NOTE | 2016-11-28 10:00 | XRay Report ---
Indication: hypoxia XR chest 1V: Comparison: 11/24/2016 Technique: Single portable upright chest Findings: Patient continues to demonstrate mild increased markings particularly in the left lung base. This was seen on previous studies and has not changed appreciably. The heart, mediastinum and central vascularity seems similar. Impression: Continued increased basilar markings particularly in the left chest similar to previous studies. .
[2016-11-28] MEDS: CYANOCOBALAMIN (B-12) 500mcg TABLET PO SCH (10:30)
[2016-11-28] MEDS: RIVAROXABAN 15 MG TABLET PO SCH ×2 (10:31→18:23)
[2016-11-28] MEDS: ALLOPURINOL 300 MG TABLET PO SCH (10:31)
[2016-11-28] MEDS: TERAZOSIN 5 MG CAPSULE PO SCH (10:31)
[2016-11-28] MEDS: ASPIRIN 81 MG CHEWABLE TABLET PO SCH (10:32)
[2016-11-28] MEDS: FERROUS SULFATE 324 MG TABLET PO SCH (10:32)
[2016-11-28] MEDS: FUROSEMIDE 40 MG TABLET PO SCH (10:32)
[2016-11-28] MEDS: SENNOSIDES 8.6 MG TABLET PO SCH ×2 (10:33→23:53)
[2016-11-28] MEDS: POLYETHYL GLYCOL 3350 17gm PACKET PO SCH ×2 (10:33→23:52)
--- NOTE | 2016-11-28 10:47 | Progress Note ---
<AndrewMari D - Last Filed: 11/28/16 10:42> Subjective: Smooth notes a little improvement in his breathing - currently on 2L of oxygen. His reports that he hasn't worked with PT yet but did stand up yesterday - he denied feeling dizzy/lightheaded with this change in position. He still hasn' t had a bowel movement but denies any pain, nausea/vomiting. His adds that his appetite was very poor to begin with, and she feels it's about the same as it was before the injury. His states that he was voiding frequently yesterday; hasn't noticed that as much today. We discussed treatment for PE/ DVT. Objective Vital signs: Temperature 98.3 F 11/28/16 07:47 Pulse Rate 69 11/28/16 08:45 Respiratory Rate 18 11/28/16 07:47 Blood Pressure 157/69 H 11/28/16 07:47 Pulse Oximetry 96 11/28/16 07:47 Rhythm: Normal Sinus Rhythm Height/Weight/BMI: Height 1.75 m Weight 94.5 kg Body Mass Index 28.6 - Constitutional Present: no acute distress, well nourished, well developed - Routine HEENT Exam ENT: Present: oropharynx clear - Routine Respiratory Exam Present: decreased breath sounds (clear but decreased breath sounds anteriorly) Comments: pt refused to sit up or roll to the side to permit auscultation posteriorly - Routine Cardiovascular Exam Present: RRR, S1, S2 - Routine Abdominal Exam Present: soft, normoactive bowel sounds, non distended, non tender - Routine Extremities Exam Present: edema (b/l legs/thighs), pulses intact - Routine Skin Exam Present: intact, dry, pallor, warm - Routine Neurological Exam Present: alert, oriented X3 - Routine Psychiatric Exam Present: cooperative Results - Labs CBC & Chem 7: 11/28/16 05:05 11/28/16 05:05 Assessment and Plan (1) Closed right hip fracture Problem details: Right intertrochanteric fracture, closed Current visit: Yes Status: Acute (2) Chest pain Current visit: Yes Status: Acute (3) Pulmonary emboli Current visit: Yes Status: Acute DVT Prophylaxis: Xarelto GI Prophylaxis: Protonix Resuscitation Status: Full Code Assessment and Plan: Impression Right intertrochanteric fracture, status post CM fixation on 11/23/16 Ambulatory dysfunction with falls Coronary artery disease, Plavix nonresponder Chest pain Transient hypotension Macrocytic anemia with superimposed blood loss Thrombocytopenia Fluid overload, suspected CHF Right pulmonary embolus; left near-occlusive DVT distal superficial femoral/ popliteal vein COPD Visual/hearing deficits Depression Unintentional weight loss Malnutrition-total protein 5.5/albumin 3.0 on admission Hx of BPH Plan Hgb decreased to 7.6; received PRBC transfusion on 11/24 and again on 11/26. Denies symptoms of anemia - will monitor for now and recheck labs in am. Weight trending down but still 6 kg above baseline; Fluid status is still positive - will give Lasix 20 mg IV x1 & continue Lasix 40 mg PO daily. Give an additional dose of Kdur 10 mEq. Since HCTZ has been discontinued, we may need add an additional dose of Lasix to be given on a routine basis. Oxygen requirements continue to decrease; RN is titrating down this am. Continue Xarelto 15 mg BID for DVT/PE - change to 20 mg daily on 12/18/16. Constipation - refuses suppository. Will try Lactulose x1. Discussed with Dr. Dahl. High risk medications in use. Hospital Course Summary Disclaimer: The visit summary below is not to be considered part of the above Progress Note. Hospital Course: Impression: Right intertrochanteric fracture, status post CM fixation on 11/23/16 Ambulatory dysfunction with falls Coronary artery disease, Plavix nonresponder Chest pain Transient hypotension Macrocytic anemia with superimposed blood loss Thrombocytopenia COPD Visual/hearing deficits Depression Unintentional weight loss Malnutrition-total protein 5.5/albumin 3.0 on admission Fluid overload, suspected CHF Right pulmonary embolus Hx of BPH 11/24/16 Hypoxia with increased oxygen demands, up to 8 L. Will repeat chest x-ray this morning. He has left-sided chest pain, but this is not acute, nor any different than previously. Cardiac enzymes were negative. Prior EKG did not show any ischemic changes. Further, patient has not been interested in pursuing additional cardiac testing at this time. Acute blood loss anemia: Hemoglobin has dropped nearly 2 g to 7.5. This also could explain his hypoxia. Will give 1 U PRBC along with Lasix 10 mg IV. White blood cell count increased to 12.5, could be reactive, also, platelets dropped to 125. If platelets drop further, we may need to stop Lovenox. BMP is stable. Prealbumin was 16.8. Oliguria - 125 ml over last 6 hours - continue IVF. Uncontrolled postop pain - increase [place] to up to 2 tabs Q4h PRN. Start bladder retraining - hope to DC tomorrow. 11/25/16 Oxygen demand down to 5 L. Will continue to wean as able. Home O2 was initially 3-4 L. His hemoglobin remains at 7.5 despite 1 unit of PRBCs given yesterday. His hemoglobin was up to 9.0 post transfusion last evening. Hold off on further transfusion as hypoxia has improved and he has no further chest pain. Will repeat another CBC this afternoon. White blood cell count is stable. Platelets continue to drop down to 116 today. Continue to monitor. Doing okay with bladder retraining, should be able to DC [place] later today. Milk of mag now and start daily MiraLAX and senna for constipation/bowel motivation. 11/26/16 PE - therapeutic Lovenox was initiated last night, and Dr. Dahl is planning to have discussion on long-term anticoagulation options with the patient. I called therapy to let them know that there are no contraindications to continuing his activity. Anemia - hemoglobin is 7.4. Will give additional unit of packed red cells today. [place] catheter - bladder retraining was not done yesterday. Will restart retraining today and discontinue catheter this evening, monitoring for retention. Leukocytosis has resolved. Platelets are mildly low, 123. Will need to follow since he's on Lovenox. Constipation - increase MiraLAX to BID; add Dulcolax supp. PRN. Discharge plans - they wish to return to Nichelle @ [facility] for therapy. 11/27/16 *Pt. appears to be fluid overloaded. Give Lasix 40mg IV x 1 now with KCL. Resume home Lasix, but increase to BID now until fluid is stabilized. Hold HCTZ given advanced age. Resume home medication for BPH. Stop IVF, monitor PO intake. *Anemia, acute on chronic Likely some degree of hemodilution. Stop IVF. Diurese. Repeat CBC this afternoon. May need to transfuse if remains low. *CP/Transient Hypotension-resolved. *PE- Xarelto x 3-6 months. Monitor for bleeding. Venous doppler pending. Stop SCDs. *Weakness/Falls/Hip Fx- PT/OT. DC planning-?SNU when stable. 11/28/16 Hgb decreased to 7.6; received PRBC transfusion on 11/24 and again on 11/26. Denies symptoms of anemia - will monitor for now and recheck labs in am. Weight trending down but still 6 kg above baseline; Fluid status is still positive - will give Lasix 20 mg IV x1 & continue Lasix 40 mg PO daily. Give an additional dose of Kdur 10 mEq. Since HCTZ has been discontinued, we may need add an additional dose of Lasix to be given on a routine basis. Oxygen requirements continue to decrease; RN is titrating down this am. Continue Xarelto 15 mg BID for DVT/PE - change to 20 mg daily on 12/18/16. Constipation - refuses suppository. Will try Lactulose x1. <Ana Dahl - Last Filed: 11/28/16 15:16> Objective Vital signs: Temperature 98.3 F 11/28/16 07:47 Pulse Rate 69 11/28/16 08:45 Respiratory Rate 18 11/28/16 07:47 Blood Pressure 157/69 H 11/28/16 07:47 Pulse Oximetry 96 11/28/16 07:47 Height/Weight/BMI: Height 1.75 m Weight 94.5 kg Body Mass Index 28.6 Results - Labs CBC & Chem 7: 11/28/16 05:05 11/28/16 05:05 Assessment and Plan (1) Closed right hip fracture Problem details: Right intertrochanteric fracture, closed Current visit: Yes Status: Acute (2) Chest pain Current visit: Yes Status: Acute (3) Pulmonary emboli Current visit: Yes Status: Acute Assessment and Plan: I have independently evaluated and examined this patient. I reviewed the chart, the patient's history, and the [employer]/PA's documented findings as above. We discussed and formulated the assessment and plan as above with additions as below: Smooth has been titrated 2 L oxygen and is noncommittal about dyspnea. He's not had a bowel movement and continues to have pain if he weight bears or exercises his right leg. NAD at rest Respirations nonlabored, decreased breath tones throughout, no wheezing Right greater than left lower extremity edema, greatest in the right thigh Hemoglobin lower again today, repeat after 12 hours to determine if lab variation or clear drop. Hemoccult ordered. Chest x-ray reviewed by myself-NAD; results of venous Doppler noted-clot in the left distal superficial femoral/popliteal veins. Discussed with Dr. Faust, hemoglobin above 8 prior to transfer. Hospital Course Summary Disclaimer: The visit summary below is not to be considered part of the above Progress Note.
[2016-11-28] MEDS ORDERED: FUROSEMIDE 20 MG/2 ML INJECTION IVP ONE (11:02)
[2016-11-28] MEDS ORDERED: LACTULOSE 20 GM/30 ML ORAL LIQUID PO ONE (11:06)
[2016-11-28] MEDS: SALINE FLUSH 10ml SYRINGE IV PRN ×2 (13:11→16:40)
[2016-11-28] MEDS: OXYCODONE/APAP 7.5 MG/325 MG TABLET PO PRN (16:39)
[2016-11-28] MEDS: TIOTROPIUM 18mcg/cap HANDIHALER ORAL INH SCH (21:36)
[2016-11-28] MEDS: MORPHINE SULFATE 4mg INJECTION IVP PRN (23:06)
[2016-11-29] MEDS: NOZIN NASAL SWAB NAS SCH ×2 (04:07→10:18)
[2016-11-29] MEDS: SALINE FLUSH 10ml SYRINGE IV PRN (06:47)
[2016-11-29] MEDS: PANTOPRAZOLE 40 MG TABLET PO SCH (06:48)
[2016-11-29] MEDS: OXYCODONE/APAP 7.5 MG/325 MG TABLET PO PRN (08:14)
[2016-11-29] MEDS: FERROUS SULFATE 324 MG TABLET PO SCH (08:18)
[2016-11-29] MEDS: ASPIRIN 81 MG CHEWABLE TABLET PO SCH (08:18)
[2016-11-29] MEDS: RIVAROXABAN 15 MG TABLET PO SCH (08:18)
[2016-11-29] MEDS: CYANOCOBALAMIN (B-12) 500mcg TABLET PO SCH (08:18)
[2016-11-29] MEDS: SENNOSIDES 8.6 MG TABLET PO SCH (08:19)
[2016-11-29] MEDS: POLYETHYL GLYCOL 3350 17gm PACKET PO SCH (08:19)
[2016-11-29] MEDS: FUROSEMIDE 40 MG TABLET PO SCH (08:19)
[2016-11-29] MEDS: ALLOPURINOL 300 MG TABLET PO SCH (08:19)
[2016-11-29] MEDS: TERAZOSIN 5 MG CAPSULE PO SCH (08:19)
[2016-11-29 08:27] VITALS: O2SAT 93
[2016-11-29 08:48] VITALS: PULSE 82
--- NOTE | 2016-11-29 09:14 | Discharge Summary ---
<Mari Morales - Last Filed: 11/29/16 09:08> Discharge Information Date of admission: 11/22/16 20:30 Anticipated date of discharge: 11/29/16 Attending Physician: Ana Dahl MD Consults: Consulting Provider: René Cardona - Discharge Diagnosis (1) Closed right hip fracture Status: Acute (2) Chest pain Status: Acute (3) Pulmonary emboli Status: Acute - Procedures Procedures: CM fix of intertrochanteric hip fx on 11/23/[address] Cardona PRBC transfusion on 11/24/16 and 11/26/16 Urbano insertion on 11/22/16; removed on 11/28/16 and re-inserted later on - Laboratory Labs: 11/29/16 04:19 11/29/16 04:19 - Radiology Radiology: 11/22/16 X-ray: IT right femoral neck fx. CXR: linear atelectasis in right midlung, otherwise clear. 11/24/16 CXR: atelectasis improved; no focal pneumonia or failure. 11/25/16 Chest CTA: Pulmonary arteries: Exam is diagnostic to the subsegmental pulmonary arterial level. There is segmental and subsegmental pulmonary embolus in the right middle and lower lobes. Small emboli are also seen in the subsegmental left lower lobe pulmonary artery branches. Other findings: Scattered areas of groundglass opacity and atelectasis. Rounded atelectasis in the right lower lobe. Left basilar atelectasis. No pneumothorax. The central airways are patent. No axillary or mediastinal adenopathy. Large right shoulder joint effusion with multiple calcifications internally. Heart size is enlarged. Trace pericardial effusion. The upper abdomen shows left renal stone but no acute findings. Impression: Bilateral pulmonary emboli. 11/28/16 CXR: Left increased basilar markings (similar to previous studies). 11/28/16 Venous Doppler Bilateral Lower Extremities: Near occlusive DVT in the left distal superficial femoral/popliteal vein. History of Present Illness HPI: Mr. Reyes is an 86-year-old male with chronic balance problems and macular degeneration. He fell getting out of his car at home yesterday and had immediate pain in his right hip. He was unable to stand. He denies other injuries, head injury, or loss of consciousness. He's unsure if he struck his chest in the fall. EMS was summoned and he presented to [facility] in [place] were x-rays demonstrated right intertrochanteric hip fracture. He subsequently was transferred to [facility] for orthopedic care. Shortly after arrival the patient developed generalized pressure like pain in his left chest with drop in blood pressure to 74/46. He denied associated radiation, nausea/vomiting, change in chronic dyspnea. He had a brief episode of diaphoresis and felt cold. Pain lasted for about 1 hour and resolved spontaneously and or with morphine. There's been no recurrence and cardiac enzymes have been unremarkable with EKG last night and this morning demonstrating old changes only. Patient indicated he is not interested in further cardiac workup at this time. Objective Vital signs: Temperature 98.8 F 11/29/16 08:09 Pulse Rate 82 11/29/16 08:23 Respiratory Rate 16 11/29/16 08:09 Blood Pressure 159/69 H 11/29/16 08:09 Pulse Oximetry 93 11/29/16 08:09 Rhythm: Normal Sinus Rhythm Height/Weight/BMI: Height 1.75 m Weight 94.5 kg Body Mass Index 28.6 - Constitutional Present: no acute distress, well nourished, well developed - Routine Respiratory Exam Present: decreased breath sounds, CTA bilaterally - Routine Cardiovascular Exam Present: RRR, S1, S2 - Routine Abdominal Exam Present: soft, normoactive bowel sounds, non distended, non tender - Routine Exam Comments: Urbano to DD - Routine Extremities Exam Present: edema (BLE, R>L) - Routine Musculoskeletal Exam Musculoskeletal: Present: surgical scar (dressings to right leg/hip c/d/i) - Routine Skin Exam Present: intact, dry, warm - Routine Neurological Exam Present: alert, oriented X3 - Routine Psychiatric Exam Present: cooperative. Absent: normal affect (flat) Hospital Course This is a general summary of the patient's hospital course. For more details refer to the complete medical record. Hospital course: Impression: Right intertrochanteric fracture, status post CM fixation on 11/23/16 Ambulatory dysfunction with falls Urinary retention - Urbano re-inserted on 11/28/16 Fluid overload, suspected CHF Pulmonary emboli Near occlusive DVT in the left distal superficial femoral/popliteal vein Coronary artery disease, Plavix nonresponder Chest pain Transient hypotension Macrocytic anemia with superimposed blood loss Thrombocytopenia COPD Visual/hearing deficits Depression Unintentional weight loss Malnutrition-total protein 5.5/albumin 3.0 on admission Hx of BPH Hospital Course Smooth was admitted under the hospitalist service on 11/22/[address] Cardona. He c/o left sided chest pain on admission, cardiac enzymes were negative and EKG was negative for ischemic changes. Labs showed that he was a Plavix nonresponder so this was discontinued. He had an episode of hypotension ( nitrates were not given). The patient declined further cardiac w/u before surgery, but continued to c/o intermittent chest pain throughout his hospital course. He underwent CM fixation of his hip fracture on 11/23/16. On 11/24/16, he became hypoxic, requiring 8L of oxygen. Initially it was presumed he had a fat embolus, and DIC panel was checked, revealing INR of 1.08, fibrinogen of 507 , D-dimer of 384, and DIC score of 1. CTA of his chest was ordered on 11/25/16, and this was positive for PE. He was started on therapeutic Lovenox then after a risk-benefit discussion of anticoagulation options was started on Xarelto. Oxygen demands steadily decreased after this, and by day of discharge he was on 2L of supplemental oxygen. Venous doppler was positive for left leg DVT. He was also acutely anemic and transfused 1 unit PRBC on 11/24/16 and again on . Hgb stabilized in the mid-8s by discharge. Platelets dropped postoperatively but then rebounded and were 219 on day of discharge. IVF were initially continued d/t oliguria, but later he became fluid overloaded and was diuresed on 11/27/16. HCTZ was dc'd due to advanced age, but routine Lasix was continued and his weight and fluid status improved. His renal function remained stable throughout hospitalization. His Urbano catheter was discontinued on , but by late evening he was having significant urinary retention and it was re-inserted. He struggled with constipation, not having a bowel movement until 11/28/16 following a dose of Lactulose, on top of routine bowel regimen. PT/OT were consulted but he was very slow to gain mobility and ongoing therapy was recommended. He was stable for [facility] to [facility] on 11/29/16. He may need additional diuresis. He may also require urology f/u d/t urinary retention and Urbano reinsertion. New medications: Xarelto 15 mg BID through 12/17/16 then change to 20 mg with supper on 12/18/16; Percocet 7.5/325 1-2 Q6h PRN pain; HCTZ was dc'd. Time spent with patient: discharge greater than 30 minutes DVT Prophylaxis: Xarelto GI Prophylaxis: Protonix Discharge Plan - Med Rec/Dispo Referrals/Follow Up: Emmett Faust DO [Physician] - 2 Days René Cardona MD [Physician] - (call for appointment) [place] Instructions: Blood Transfusion (GEN), [facility] Postop Instructions Prescriptions: New Milk of Magnesia [Mom] 30 ml PO DAILY PRN udc PRN Reason: Constipation Oxycodone/Apap 7.5/325 [Percocet 7.5/325] 1 - 2 tab PO Q6H PRN #20 tab PRN Reason: Pain Rivaroxaban [Xarelto] 15 mg PO BIDWM #19 tab Rivaroxaban [Xarelto] 20 mg PO WS #30 tab Cyanocobalamin (B-12) [Vit. B-12] 1,000 mcg PO DAILY tablet PEG 3350 17gm PACKET [Miralax] 17 gm PO BID packet Sennosides [Senna Lax] 17.2 mg PO BID tablet Continue Advair 250-50 Diskus 1 puff DAILY #0 Adriano/Vit B12/Folic Acid/Vit B6 [Folic Acid-Vit B6-Vit B12 Tab] 1 tab PO DAILY #0 Esomeprazole [NEXIUM 20 mg Capsule] 20 mg PO DAILY #0 Glucosamine Hcl/Chondr Greco A Na (Glucosamin/Chondrot Tb) 1 tab PO BID #0 VISAVITE 1 tab PO DAILY #0 Magnesium Oxide [Magnesium] 500 mg PO DAILY #0 Vitamin E 400 unit PO DAILY #0 terazosin 10 mg capsule 10 mg PO DAILY 90 Days cap Lasix (Furosemide) 40 mg tablet 40 mg PO DAILY 30 Days tab metoprolol tartrate 25 mg tablet 25 mg PO DAILY 90 Days tab Zyloprim (Allopurinol) 300 mg tablet 300 mg PO DAILY tab Spiriva with HandiHaler (tiotropium bromide) 18 mcg capsule with inhalation device 18 meq INH DAILY 30 Days #30 ferrous sulfate 325 mg (65 mg iron) tablet 325 mg PO DAILY 90 Days tab coenzyme Q10 10 mg capsule 10 mg PO DAILY cap aspirin 81 mg chewable tablet 81 mg PO DAILY PRN tab PRN Reason: DAILY magnesium 250 mg tablet 250 mg PO BID calcium cmb [id number] 120 mg-1,000 unit-10 mg tablet tab PO potassium chloride ER 10 mEq tablet,extended release 10 meq PO DAILY 30 Days #90 Discontinued Terazosin HCl 10 mg PO DAILY #0 hydroCHLOROthiazide [Hydrochlorothiazide] 25 mg PO DAILY #0 Potassium Chloride [Klor-Con 10] 10 meq PO DAILY #0 Plavix (clopidogrel) 75 mg tablet 75 mg PO DAILY 90 Days tab [place] 10 mg-acetaminophen 325 mg tablet 1 tab PO PRN 30 Days tab cyanocobalamin (vit B-12) 1,000 mcg tablet 1,000 mcg PO DAILY tab - Disposition 61 To Any Swing Bed <Ana Dahl - Last Filed: 11/29/16 13:58> Discharge Information Date of admission: 11/22/16 20:30 Attending Physician: Ana Dahl MD Consults: 11/22/16 21:05 Physician Consult [CONS] Routine Consulting Provider: René Cardona Reason For Exam: hip fx Ordering Provider has Notified Seismology Teacher: No - Discharge Diagnosis (1) Closed right hip fracture Status: Acute (2) Chest pain Status: Acute (3) Pulmonary emboli Status: Acute - Procedures Procedures: I have independently evaluated and examined this patient. I reviewed the chart, the patient's history, and the SPINNING OPERATOR/PA's documented findings as above. We discussed and formulated the assessment and plan as above with additions as below: Mr. Reyes was initially seen at about 10 AM which time he was lethargic and having trouble keeping his eyes open. Nursing reported that he had been alert and interactive earlier in the morning prior to taking 2 Percocets. The patient mumbled a few responses but really didn't provide any coherent answers at the time of initial assessment. I reevaluated an hour later at which time he was more appropriate and again at 1 PM when he was essentially back to baseline. His reported that he become progressively more alert through the late morning after the somnolence initially a seen.. Patient denied dyspnea and reported large bowel movement last night. Recurrent urinary retention developed after removing the Urbano catheter yesterday requiring replacement overnight. Drowsy male but improved through the morning and now answering questions. Respirations are nonlabored with decreased airflow throughout. Regular cardiac rhythm Blood gas obtained this morning to exclude hypercarbia and none evident; serum ammonia also checked and less than 9. Somnolence appears to be due to narcotics and doses been decreased from 1 or 2 tablets Percocet as needed to 1 tablet every 6 hours when necessary. Order changed on discharge paperwork. Hemoglobin stable. - Laboratory Labs: 11/29/16 04:19 11/29/16 04:19 Objective Vital signs: Temperature 98.1 F 11/29/16 12:31 Pulse Rate 82 11/29/16 12:31 Respiratory Rate 18 11/29/16 12:31 Blood Pressure 117/46 11/29/16 12:31 Pulse Oximetry 93 11/29/16 12:31 Height/Weight/BMI: Height 1.75 m Weight 92.2 kg Body Mass Index 28.6 Hospital Course This is a general summary of the patient's hospital course. For more details refer to the complete medical record.
--- NOTE | 2016-11-29 09:53 | Extended Care Facility Orders ---
Admission Orders Admit to:: Alf Allergies/Adverse Reactions: Allergies Penicillins Allergy (Severe, Verified 11/23/16 14:27) BLACKED OUT Admitting Diagnosis: Right hip fx Admitting Physician: Ana Dahl MD Attending Physician: Ana Dahl MD Code Status: Full Code Anticiapted Length of Stay: 30 days or less Rehab Potential: fair Rehab Prognosis: fair Diet: Regular Diet [DIET] May use Facility Protocol or Standing Orders: Yes May have flu vaccine: Yes Evaluations/Treatment: PT, OT Alf Certification: I certify that SNF services are required to be given on an Inpatient basis because of the patient's need for snf care on a continuing basis for the condition(s) for which he received inpatient hospital services prior to his transfer to the SNF. SNF inpatient care is necessary for the following reasons Indication for Alf: Assess Anticoagulation Therapy - Additional Information In Event of Arrest: Start CPR,call 911,send patient to the ER Resident is Aware of Diagnosis: Yes Laboratory/Radiology: Follow H&H; required blood transfusion x2 postop Monitor chemistries if additional diuresis is needed Referrals: Emmett Faust DO [Physician] - 2 Days René Cardona MD [Physician] - (call for appointment) Additional Orders: Routine Urbano care. Oxygen to maintain sats >90%.
[2016-11-29] MEDS: TIOTROPIUM 18mcg/cap HANDIHALER ORAL INH SCH (10:31)
[2016-11-29 12:32] VITALS: BP 117/46; RESP 18; TEMP 98.1
[2016-12-18] MEDS ORDERED: RIVAROXABAN 20 MG TABLET PO SCH (17:30)
== END 2016-11-29 14:05 | DRG 480 ==
LOC: SRG 20:30
PROVIDERS: ADMIT Hospitalist; ATTEND Internal Medicine